=== PATIENT | female | born 1990 | race Hispanic/Latino ===

== ENCOUNTER 2019-05-16 15:08 | Emergency (ER) | payer BC, SELFPAY ==
--- NOTE | 2019-05-16 16:06 | EDPHYS ---
Physician Documentation [facility] Name: Faby Bucio Age: 28 yrs Sex: Female : 1990 Arrival Date: 05/16/2019 Time: 15:09 Bed 17 Private MD: None, None ED Physician Bob Greenberg HPI: 05/15 15:33 This 28 yrs old Female presents to ER via Ambulatory with complaints of Fever, kb Cough, General Weakness. 15:33 The patient or guardian reports cough, that is intermittent, described as mild, with no kb sputum, flu symptoms, low-grade fever. Onset: The symptoms/episode began/occurred this morning. Severity of symptoms: At their worst the symptoms were mild, in the emergency department the symptoms are unchanged. Modifying factors: The symptoms are alleviated by nothing, the symptoms are aggravated by nothing. Associated signs and symptoms: Pertinent positives: fever, sore throat, Pertinent negatives: chest pain, diarrhea, ear ache, nausea, rhinorrhea, vomiting. The patient has not experienced similar symptoms in the past. The patient has not recently seen a physician. Pt reports she woke up with a subjective fever ("felt hot") and cough. Reports scratchy throat. Denies shortness of breath. Denies travel or exposure to COVID. . 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 - Social history:: Smoking status: Patient denies any tobacco usage or history of. ROS: 15:33 Neck: Negative for injury, pain, and swelling, Cardiovascular: Negative for chest pain, kb palpitations, and edema, Abdomen/GI: Negative for abdominal pain, nausea, vomiting, diarrhea, and constipation, Back: Negative for injury and pain, MS/Extremity: Negative for injury and deformity, Skin: Negative for injury, rash, and discoloration, Neuro: Negative for headache, weakness, numbness, tingling, and seizure. 15:33 Constitutional: Positive for fever, Negative for body aches, chills, fatigue, malaise, poor PO intake, weight loss. 15:33 ENT: Positive for sore throat. 15:33 Respiratory: Positive for cough, Negative for dyspnea on exertion, hemoptysis, orthopnea, pleurisy, shortness of breath, sputum production, wheezing. Exam: 15:35 Constitutional: This is a well developed, well nourished patient who is awake, alert, kb and in no acute distress. Head/Face: Normocephalic, atraumatic. ENT: Nares patent. No nasal discharge, no septal abnormalities noted. Tympanic membranes are normal and external auditory canals are clear. Oropharynx with no redness, swelling, or masses, exudates, or evidence of obstruction, uvula midline. Mucous membranes moist. Neck: Trachea midline, no thyromegaly or masses palpated, and no cervical lymphadenopathy. Supple, full range of motion without nuchal rigidity, or vertebral point tenderness. No Meningismus. Chest/axilla: Normal chest wall appearance and motion. Nontender with no deformity. No lesions are appreciated. Cardiovascular: Regular rate and rhythm with a normal S1 and S2. No gallops, murmurs, or rubs. Normal PMI, no JVD. No pulse deficits. Respiratory: Lungs have equal breath sounds bilaterally, clear to auscultation and percussion. No rales, rhonchi or wheezes noted. No increased work of breathing, no retractions or nasal flaring. Abdomen/GI: Soft, non-tender, with normal bowel sounds. No distension or tympany. No guarding or rebound. No evidence of tenderness throughout. Skin: Warm, dry with normal turgor. Normal color with no rashes, no lesions, and no evidence of cellulitis. MS/ Extremity: Pulses equal, no cyanosis. Neurovascular intact. Full, normal range of motion. Neuro: Awake and alert, GCS 15, oriented to person, place, time, and situation. Cranial nerves II-XII grossly intact. Motor strength 5/5 in all extremities. Sensory grossly intact. Cerebellar exam normal. Normal gait. Vital Signs: 15:29 BP 117 / 90; Pulse 88; Resp 16; Temp 98.1; Pulse Ox 99% ; Weight 122.47 kg; Height 5 iw ft. 5 in. (165.10 cm); 15:29 Body Mass Index 44.93 (122.47 kg, 165.10 cm) iw MDM: 15:32 Patient medically screened. kb 15:35 Data reviewed: vital signs, nurses notes. Data interpreted: Pulse oximetry: on room air kb is 99 %. Interpretation: normal. 16:04 Counseling: I had a detailed discussion with the patient and/or guardian regarding: the kb historical points, exam findings, and any diagnostic results supporting the discharge/admit diagnosis, lab results, the need for outpatient follow up, a family practitioner, to return to the emergency department if symptoms worsen or persist or if there are any questions or concerns that arise at home. 05/15 15:16 Order name: Flu; Complete Time: 16:04 kb 05/15 15:16 Order name: Strep; Complete Time: 15:56 kb 05/15 16:02 Order name: Throat Culture EDMS Administered Medications: No medications were administered Disposition: 18:46 Co-signature as Attending Physician, Bob Greenberg MD I agree with the assessment and kdr plan of care. Disposition: 05/16/19 16:05 Discharged to Home. Impression: Acute upper respiratory infection, unspecified. - Condition is Stable. - Discharge Instructions: Upper Respiratory Infection, Adult, [id number], Viral Respiratory Infection, [id number]. - Medication Reconciliation Form, Thank You Letter, Antibiotic Education, Prescription Opioid Use form. - Follow up: Emergency Department; When: As needed; Reason: Worsening of condition. Follow up: Private Physician; When: 2 - 3 days; Reason: Recheck today's complaints, Continuance of care, Re-evaluation by your physician. Signatures: Dispatcher [employer] [facility] Ofelia Steele, [employer]-C [employer]-Ckb Bob Greenberg MD MD [facility] Gabriela Lui, ANA RN Hung Martin RN RN ae4 Corrections: (The following items were deleted from the chart) 16:19 16:05 05/16/2019 16:05 Discharged to Home. Impression: Acute upper respiratory ae4 infection, unspecified. Condition is Stable. Forms are Medication Reconciliation Form, Thank You Letter, Antibiotic Education, Prescription Opioid Use. Follow up: Emergency Department; When: As needed; Reason: Worsening of condition. Follow up: Private Physician; When: 2 - 3 days; Reason: Recheck today's complaints, Continuance of care, Re-evaluation by your physician. kb
--- NOTE | 2019-05-16 16:06 | ER ---
Nurse's Notes [facility] Name: Faby Bucio Age: 28 yrs Sex: Female : 1990 Arrival Date: 05/16/2019 Time: 15:09 Bed 17 Private MD: None, None Diagnosis: Acute upper respiratory infection, unspecified Presentation: 05/15 15:29 Chief complaint: Patient states: woke up with a cough and subjective fever at home, was iw sweaty when she woke up from nap, her grandma told her to come get checked out, denies SOB. Coronavirus screen: Patient reports a cough. Patient denies shortness of breath or difficulty breathing. Patient reports a measured and/or subjective temperature greater than 100.4F. Coronavirus screen: Patient denies travel on a cruise ship or to a country the [facility] currently lists as an affected area. Patient denies contact with known and/or suspected case of COVID-19. Ebola Screen: Patient negative for fever greater than or equal to 101.5 degrees Fahrenheit, and additional compatible Ebola Virus Disease symptoms Patient denies exposure to infectious person. Patient denies travel to an Ebola-affected area in the 21 days before illness onset. No symptoms or risks identified at this time. Initial Sepsis Screen: Does the patient meet any 2 criteria? No. Patient's initial sepsis screen is negative. Does the patient have a suspected source of infection? No. Patient's initial sepsis screen is negative. Risk Assessment: Do you want to hurt yourself or someone else? Patient reports no desire to harm self or others. 15:29 Method Of Arrival: Ambulatory iw 15:29 Acuity: PHIL 4 iw 15:34 Coronavirus screen: Surgical mask placed on patient. Patient moved to private room, iw placed in contact and droplet isolation with eye protection until further assessment. 16:19 Onset of symptoms was May 16, 2019 at 08:00. 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 - Social history:: Smoking status: Patient denies any tobacco usage or history of. Screenin:44 Abuse screen: Denies threats or abuse. Denies injuries from another. Nutritional iw screening: No deficits noted. Tuberculosis screening: No symptoms or risk factors identified. Fall Risk None identified. Assessment: 15:43 General: Appears in no apparent distress. comfortable, Behavior is calm, cooperative. iw General: Reports fever for 0-12 hours, feeling ill for 0-12 hours. Pain: Complains of pain in throat Quality of pain is described as irritated, itchy. Neuro: Level of Consciousness is awake, alert, obeys commands, Oriented to person, place, time, situation, Moves all extremities. Full function. Cardiovascular: Patient's skin is warm and dry. Respiratory: Reports cough that is non-productive, Respiratory effort is even, unlabored, Respiratory pattern is regular, symmetrical, Denies shortness of breath labored breathing. GI: No signs and/or symptoms were reported involving the gastrointestinal system. : No signs and/or symptoms were reported regarding the genitourinary system. Derm: Skin is intact, is healthy with good turgor. Musculoskeletal: Range of motion: intact in all extremities. 16:18 Reassessment: No changes from previously documented assessment. Patient and/or family ae4 updated on plan of care and expected duration. Pain level reassessed. Vital Signs: 15:29 BP 117 / 90; Pulse 88; Resp 16; Temp 98.1; Pulse Ox 99% ; Weight 122.47 kg; Height 5 iw ft. 5 in. (165.10 cm); 15:29 Body Mass Index 44.93 (122.47 kg, 165.10 cm) iw ED Course: 15:09 Patient arrived in ED. dp 15:09 None, None is Private Physician. dp 15:11 Ofeila Steele [facility]-C [facility]. kb 15:11 Bob Greenberg MD is Attending Physician. kb 15:31 Triage completed. iw 15:35 Hung Plasencia, ANA is Primary Nurse. ae4 15:44 No provider procedures requiring assistance completed. Flu and/or RSV swab sent to lab. iw Strep swab sent to lab. Patient did not have IV access during this emergency room visit. 16:00 Bed in low position. Call light in reach. Side rails up X 1. Pulse ox on. ae4 16:00 Arm band placed on right wrist. ae4 Administered Medications: No medications were administered Outcome: 16:05 Discharge ordered by . nati 16:19 Discharged to home ambulatory. ae4 16:19 Condition: stable 16:19 Discharge instructions given to patient, Instructed on discharge instructions, Demonstrated understanding of instructions. 16:19 Patient left the ED. ae4 Signatures: Ofelia Steele, DERMATOLOGY PHYSICIAN ASSISTANT-C DERMATOLOGY PHYSICIAN ASSISTANT-CkGabriela Arizmendi, RN Milo Meeks Andrea, RN RN ae4
[2019-05-16 16:26] VITALS: BP 117/90; TEMP 98.1; O2SAT 99
== END 2019-05-16 16:19 | disposition home or self-care (01) ==
LOC: ER 15:08
DX: J06.9 Acute upper respiratory infection, unspecified (principal)
CPT/HCPCS: 87070; 87081; 87804; 99283

== ENCOUNTER 2022-02-06 17:51 | Emergency (ER) | payer OTHER ==
--- OUTSIDE RECORDS SUMMARY | 2022-02-06 17:59 | XMS REPORT | Continuity of Care Document ---
:1990 Author Organization [facility] t Address [address] [place] [address] Care Team Providers Name Role Phone PCP, PATIENT DOES NOT HAVE A Primary Care Physician UnavailElgin Briceno Attending Clinician Unavailable KEYSHAWN LANGFORD Attending Clinician Unavailable Keyshawn Langford MD Attending Clinician Cody Hart MD Attending Clinician Bud LUZ, R Attending Clinician Kaleb Garrison MD Attending Clinician [phone] Damian Lobato DO Attending Clinician [facility] Attending Clinician Unavailable Everardo Mckoy PA-C Attending Clinician Doctor Unassigned, [place] Attending Clinician Unavailable 2, [facility] Attending Clinician Unavailable Tonya Reed MD Attending Clinician TONYA REED Attending Clinician Unavailable Trung John MD Attending Clinician TRNUG JOHN Attending Clinician Unavailable TRUNG JOHN Attending Clinician Unavailable Nurse, [facility] Attending Clinician Unavailable Sariah Potts MD Attending Clinician SARIAH POTTS Attending Clinician Unavailable EVERARDO MCKOY Attending Clinician Unavailable DANITA COBB Attending Clinician Unavailable Ultrasound, [facility] Attending Clinician Unavailable Trey Shannon MD Attending Clinician TREY SHANNON Attending Clinician Unavailable TREY SHANNON Attending Clinician Unavailable KALPESH OLSON Attending Clinician Unavailable KALPESH OLSON Attending Clinician Unavailable Brady Zarate MD Attending Clinician Keyshawn Langford MD Admitting Clinician KEYSHAWN LANGFORD Admitting Clinician Unavailable Payers Payer Name Policy Type Policy Number Effective Date Expiration Date Keith ramsey [facility] [id number] 2021 STAR 00:00:00 [employer] C1 [id number] 2020 Common Spiri t Blue Shield 00:00:00 - [facility] Problems Condition Condition Condition Status Onset Resolution Last Treating Co mments Source Name Details Category Date Date Treatment Clinician Date History of History of Disease Active 2021-02 U nivers gestationa gestationa 03-13 it y of l diabetes l diabetes 00:00[place] mellitus mellitus 00 Medica l (GDM) (GDM) [place] Liveborn Liveborn Disease Active 2021-02 Unive rs infant, of , of 02-20 it y of jimenez jimenez 00:00: [place] s , , 00 Me dical born in born in [facility] by by delivery delivery Encounter Encounter Disease Active 2021-02 Uni vers for for 02-19 ity of planned planned 00:00: [place] induction induction 00 Medi maritza of labor of labor [place] Elevated Elevated Disease Active 2021-02 Unive rs BP without BP without 02-19 it y of diagnosis diagnosis 00:00: [place] anderson of of 00 Medical hypertensi hypertensi Br anch on on Gestationa Gestationa Disease Active 2021-02 U nivers l l 02-19 ity of hypertensi hypertensi 00:00: [place] on, third on, third 00 Medi maritza trimester trimester Bran ch Gestationa Gestationa Disease Active U nivers l diabetes l diabetes 10-27 it y of mellitus mellitus 00:00: [place] (GDM) in (GDM) in 00 Medica l third third Branch trimester, trimester, gestationa gestationa l diabetes l diabetes method of method of control control unspecifie unspecifie d d GDM, class GDM, class Disease Active U nivers A2 A2 9-08 ity of 00:00: [address] Excess Excess Disease Active Univers weight weight 7-24 ity of gain in gain in 00:00: [place] , , 00 Me dical second second Branch trimester trimester 38 weeks 38 weeks Disease Active Unive rs gestation gestation 6-07 ity of of of 00:00: [place] 00 [facility] Branch 17 weeks 17 weeks Disease Active Unive rs gestation gestation 6-07 ity of of of 00:00: [place] 00 [facility] Branch Anemia of Anemia of Disease Active Uni vers mother in mother in 6-07 ity of , , 00:00: [place] antepartum antepartum 00 N[place] dical Branch Obesity Obesity Disease Active Univers complicati complicati 5-10 it y of ng ng 00:00: [place] 00 [facility] in first in first Branch trimester trimester High-risk High-risk Disease Active Uni vers 5-10 ity of in third in third 00:00: [place] trimester trimester 00 [facility] [id number] Body mass Problem Active Com mon index Spirit [BMI] - [facility] 45.0-49.9, [facility] [id number] Morbid Problem Active Commo n 9104 (severe) Spirit obesity - [facility] due to [facility] [id number] Mixed Problem Active Common hyperlipid Spirit emia - [facility] Allergies, Adverse Reactions, Alerts Allergy Allergy Status Severity Reaction(s) Onset Inactive Treating Comm ents Source Name Type Date Date Clinician NO KNOWN Drug Active Univers ALLERGIE Class ity of S [facility] Family History Family Member Diagnosis Comments Start Date Stop Date Source Maternal grandfather Diabetes [facility] Maternal Uncle Diabetes [facility] Maternal Uncle Hypertension [facility] Maternal Uncle Liver Cancer [facility] Natural mother Cancer [facility] Natural mother Diabetes [facility] Natural mother Hypertension [facility] Paternal grandmother Breast [facility] Social History Social Habit Start Date Stop Date Quantity Comments Source ASSERTION 2021-04-11 University of 00:00:00 [facility] History SDOH University o f Alcohol Frequency [facility] edical Branch History [facility] University o f Alcohol Std Drinks [place] Medical Branch History [facility] [place] o f Alcohol Binge [place] Medic al Branch History of Tobacco [facility] Spirit - Use [facility] Sex Assigned At Common Sp may - [facility] Exposure to 2022-01-01 2022-01-11 Not sure University of SARS-CoV-2 (event) 00:00:00 13:07:00 [facility] Alcohol intake 2022-01-11 2022-01-11 Current drinker Unive rsity of 00:00:00 00:00:00 of alcohol [facility] (finding) Branch Cigarettes smoked 2021-08-31 2021-08-31 Univers ity of current (pack per 00:00:00 00:00:00 [facility] ) - Reported Branch Tobacco use and 2021-08-31 2021-08-31 Smokeless Universit y of exposure 00:00:00 00:00:00 tobacco non-user [facility] dical [place] Tobacco Comment 2021-08-31 2021-08-31 socially Universit y of 00:00:00 00:00:00 [facility] Alcohol Comment 2021-06-28 2021-06-28 social Universit y of 00:00:00 00:00:00 [facility] Smoking Status Start Date Stop Date Source Ex-smoker 2021-08-31 00:00:00 2021-08-31 00:00:00 Universi ty of [facility] Never Smoker [facility] - [facility] Medications Ordered Filled Start Stop Current Ordering Indication Dosage Frequency Signature Comments Components Source Medication Medication Date Date Medication? Clinician (SIG) Name Name ascorbic 2021-02 Take by Unive rs acid 03-13 mouth. ity of (VITAMIN C 19:12: 00:00 [place] ORAL) 32 :00 Medical Branch ascorbic 2021-02 Yes Take by Univer s acid - mouth. ity of (VITAMIN C 11:35: [place] ORAL) 09 [facility] ascorbic 2021-02 Yes Take by Univer s acid -05 mouth. ity of (VITAMIN C 20:34: [place] ORAL) 44 Medical Branch ibuprofen 2021-02 Yes 600mg 600 mg, Univ ers (IBU) 1-04 Oral, Q6H ity of tablet 600 04:19: ABX, First [place] mg 56 dose Medical (after Branch last modificati on) on Christine 12/22/21 at 2330, Until Discontinu ed, Routine gabapentin 2021-02- Yes [id number] 300mg Take 1 Univers 300 mg 1-04 11-10 capsule by ity of capsule 00:00: 05:59 mouth in [place] 00 :00 the Medical morning Branch and 1 capsule at noon and 1 capsule in the evening. Do all this for 5 days. gabapentin 2021-02- Yes [id number] 300mg Take 1 Univers 300 mg 1- 11-10 capsule by ity of capsule 00:00: 05:59 mouth in [place] 00 :00 the Medical morning Branch and 1 capsule at noon and 1 capsule in the evening. Do all this for 5 days. gabapentin 2021-02- Yes [id number] 300mg Take 1 Univers 300 mg - 11-10 capsule by ity of capsule 00:00: 05:59 mouth in [place] 00 :00 the Medical morning Branch and 1 capsule at noon and 1 capsule in the evening. Do all this for 5 days. PNV 2021-02- No Take by Univers no.95/wander 02-21 11-03 mouth. ity o f us 23:23: 00:00 [place] fum/folic 46 :00 Medical ac Branch ( ORAL) PNV 2021-02- No Take by Univers no.95/wander 03 11-03 mouth. ity o f us 23:23: 00:00 [place] fum/folic 46 :00 Medical ac Branch ( ORAL) PNV 2021-02- No Take by Univers no.95/wander -03 11-03 mouth. ity o f us 23:23: 00:00 [place] fum/folic 46 :00 Medical ac Branch ( ORAL) PNV 2021-02- No Take by Univers no.95/wander 03 11-03 mouth. ity o f us 23:23: 00:00 [place] fum/folic 46 :00 Medical ac Branch ( ORAL) PNV 2021-02- No Take by Univers no.95/wander 03 11-03 mouth. ity o f us 23:23: 00:00 [place] fum/folic 46 :00 Medical ac Branch ( ORAL) PNV 2021-02- No Take by Univers no.95/wander 02-21 mouth. ity o f us 23:23: 00:00 [place] fum/folic 46 :00 Medical Branch ( ORAL) ascorbic 2021-02 Yes Take by Univer s acid 02-21 mouth. ity of (VITAMIN C 23:23: [place] ORAL) 41 Medical Branch ascorbic 2021-02 Yes Take by Univer s acid 03 mouth. ity of (VITAMIN C 23:23: [place] ORAL) 41 Medical Branch ascorbic 2021-02 Yes Take by Univer s acid 02-21 mouth. ity of (VITAMIN C 23:23: [place] ORAL) 41 Medical Branch ascorbic 2021-02 Yes Take by Univer s acid 03 mouth. ity of (VITAMIN C 23:23: [place] ORAL) 41 Medical Branch ascorbic 2021-02 Yes Take by Univer s acid 03 mouth. ity of (VITAMIN C 23:23: [place] ORAL) 41 [facility] Branch ascorbic 2021-02 Yes Take by Univer s acid 03 mouth. ity of (VITAMIN C 23:23: [place] ORAL) 41 [facility] Branch acetaminoph 2021-02 Yes 650mg 650 mg, Un alexa en 02-21 Oral, Q6H ity of (TYLENOL) 11:00: ABX, First [place] tablet 650 00 dose on Medica l mg [place] Branch 12/22/21 at 0600, Until Discontinu ed, Routine HYDROcodone 2021-02 Yes 1{tbl} 1 tablet, Univers -acetaminop 02-21 Oral, ity of hen (NORCO 05:00: Q6HPRN, [place] 5) 5-325 mg 00 Starting Medi maritza tablet 1 on [place] Branch tablet 12/22/21 at 0000, Until Discontinu ed, Routine, Pain (scale 7-10), Alternate with Ibuprofen acetaminoph 2021-02- No 1000mg 1,000 mg, Univers en ADULT 02-2103 IV ity of (OFIRMEV) 05:00: 05:05 Infusion, [place] injection 00 :00 at 400 Medical 1,000 mg mL/hr Branch Administer over 15 Minutes, ONCE TOMORROW, 1 dose, On [place] 12/22/21 at 0000, Routine, PACU
In dication: Perioperat justo Patient ketorolac 2021-02 No 30mg 30 mg, Unive rs (TORADOL) 02-21 Slow IV ity of injection 04:03: 22:17 Push, Q6H [place] 30 mg 40 :00 ABX, 4 Medical doses, Branch First dose (after last modificati on) on Sun12/21/21 at 2315, Last dose on [place] 12/22/21 at 1715, Routine gabapentin 2021-02 Yes 300mg 300 mg, Uni vers (NEURONTIN) 1-03 Oral, TID, it y of capsule 300 01:00: First dose [place] mg 00 on Sun Medical 12/21/21 at Branch 1999, Until Discontinu ed, Routine acetaminoph 2021-02 Yes [id number] 650mg Take 2 Univers en 325 mg 1-03 tablets by ity of tablet 00:00: mouth [place] 00 every 6 Medical (six) Branch hours as needed for Pain (scale 1-3) or Pain (scale 4-6). 2021-02 Yes [id number] 1{tbl} Take 1 U nivers vitamin 1-03 tablet by ity of w/FA tablet 00:00: mouth in [place] 00 the Medical morning. Branch docusate 2021-02 Yes [id number] 200mg Take 2 Un alexa 100 mg 1-03 capsules ity of capsule 00:00: by mouth [place] 00 once daily Medical as needed Branch for Constipati on. ferrous 2021-02 Yes [id number] 325mg Take 1 Uni vers sulfate 325 1-03 tablet by ity of mg (65 mg 00:00: [place] iron) 00 the Medical tablet morning Branch and 1 tablet in the evening. ibuprofen 2021-02 Yes [id number] 600mg Take 1 U nivers 600 mg 1-03 tablet by ity of tablet 00:00: mouth [place] 00 every 6 Medical (six) Branch hours as needed (Pain). Take with food or milk. acetaminoph 2021-02 Yes [id number] 650mg Take 2 Univers en 325 mg 1-03 tablets by ity of tablet 00:00: mouth [place] 00 every 6 Medical (six) Branch hours as needed for Pain (scale 1-3) or Pain (scale 4-6). 2021-02 Yes [id number] 1{tbl} Take 1 U nivers vitamin 1-03 tablet by ity of w/FA tablet 00:00: mouth in [place] 00 the Medical morning. Branch docusate 2021-02 Yes [id number] 200mg Take 2 Un alexa 100 mg 1-03 capsules ity of capsule 00:00: by mouth [place] 00 once daily Medical as needed Branch for Constipati on. ferrous 2021-02 Yes [id number] 325mg Take 1 Uni vers sulfate 325 1-03 tablet by ity of mg (65 mg 00:00: [place] iron) 00 the Medical tablet morning Branch and 1 tablet in the evening. ibuprofen 2021-02 Yes [id number] 600mg Take 1 U nivers 600 mg 1-03 tablet by ity of tablet 00:00: mouth [place] 00 every 6 Medical (six) Branch hours as needed (Pain). Take with food or milk. acetaminoph 2021-02 Yes [id number] 650mg Take 2 Univers en 325 mg 1-03 tablets by ity of tablet 00:00: mouth [place] 00 every 6 Medical (six) Branch hours as needed for Pain (scale 1-3) or Pain (scale 4-6). 2021-02 Yes [id number] 1{tbl} Take 1 U nivers vitamin 1-03 tablet by ity of w/FA tablet 00:00: mouth in [place] 00 the Medical morning. Branch docusate 2021-02 Yes [id number] 200mg Take 2 Un alexa 100 mg 1-03 capsules ity of capsule 00:00: by mouth [place] 00 once daily Medical as needed Branch for Constipati on. ferrous 2021-02 Yes [id number] 325mg Take 1 Uni vers sulfate 325 1-03 tablet by ity of mg (65 mg 00:00: [place] iron) 00 the Medical tablet morning Branch and 1 tablet in the evening. ibuprofen 2021-02 Yes [id number] 600mg Take 1 U nivers 600 mg 1-03 tablet by ity of tablet 00:00: mouth [place] 00 every 6 Medical (six) Branch hours as needed (Pain). Take with food or milk. acetaminoph 2021-02 No [id number] 650mg Take 2 Univers en 325 mg 1-03 11-23 tablets by ity of tablet 00:00: 00:00 mouth [place] 00 :00 every 6 Medical (six) Branch hours as needed for Pain (scale 1-3) or Pain (scale 4-6). 2021-02- No [id number] 1{tbl} Take 1 Univers vitamin 02-21 tablet by ity of w/FA tablet 00:00: 00:00 mouth in [place] 00 :00 the Medical morning. Branch docusate 2021-02- No [id number] 200mg Take 2 U nivers 100 mg 02-21 capsules ity of capsule 00:00: 00:00 by mouth [place] 00 :00 once daily Medical as needed Branch for Constipati on. ferrous 2021-02- No [id number] 325mg Take 1 Un alexa sulfate 325 02-21 tablet by it y of mg (65 mg 00:00: 00:00 mouth in [place] as iron) 00 :00 the Medical tablet morning Branch and 1 tablet in the evening. ibuprofen 2021-02- No [id number] 600mg Take 1 Univers 600 mg 02-21 tablet by ity of tablet 00:00: 00:00 mouth [place] 00 :00 every 6 Medical (six) Branch hours as needed (Pain). Take with food or milk. HYDROcodone 2021-02- Yes [id number] 1{tbl} Take 1 U nivers -acetaminop -12-30 tablet by it y of hen 5-325 00:00: 05:59 mouth [place] mg tablet 00 :00 every 6 Medical (six) Branch hours as needed for Pain (scale 7-10) (Alternate with Ibuprofen) for up to 7 days. Indication s: acute pain HYDROcodone 2021-02- Yes [id number] 1{tbl} Take 1 U nivers -acetaminop -04 29-11 tablet by it y of hen 5-325 00:00: 05:59 mouth [place] mg tablet 00 :00 every 6 Medical (six) Branch hours as needed for Pain (scale 7-10) (Alternate with Ibuprofen) for up to 7 days. Indication s: acute pain HYDROcodone 2021-02- Yes [id number] 1{tbl} Take 1 U nivers -acetaminop -04 29-11 tablet by it y of hen 5-325 00:00: 05:59 mouth [place] mg tablet 00 :00 every 6 Medical (six) Branch hours as needed for Pain (scale 7-10) (Alternate with Ibuprofen) for up to 7 days. Indication s: acute pain lactated 2021-02 1000mL at 125 [facility] ers ringers IV 02-20 1103 mL/hr, ity of infusion 23:45: 03:46 1,000 mL, [place] as 1,000 mL 00 :26 IV Medical Infusion, Branch ONCE, 1 dose, On Sun12/21/21 at 1845, Routine rho(D) 2021-02 Yes 300ug 300 mcg, Univer s immune 02-20 Intramuscu ity of globulin 23:34: lar, ONCE, [place] as (RHOGAM) 31 For 1 Medical syringe 300 dose, Branch mcg Conditiona l, Routine diphenhydrA 2021-02 Yes 25mg 25 mg, [facility] ers MINE 02-20 Slow IV ity of (BENADRYL) 23:34: Push, [place] injection 15 Q6HPRN, Medical 25 mg Starting Branch on Sun12/21/21 at 1834, Until Discontinu ed, Routine, Itching diphenhydrA 2021-02 Yes 25mg 25 mg, [facility] MINE 02-20 Oral, ity of (BENADRYL) 23:34: Q6HPRN, [place] tablet 25 15 Starting Medica l mg on Sun Branch 12/21/21 at 1834, Until Discontinu ed, Routine, Sleep, Itching ondansetron 2021-02 Yes 4mg 4 mg, Slow Univers (ZOFRAN 02-20 IV Push, ity of (PF)) 23:34: Q8HPRN, [place] injection 4 15 Starting Medi maritza mg on Sun Branch 12/21/21 at 1834, Until Discontinu ed, Routine, Nausea and Vomiting (N/V) bisacodyL 2021-02 Yes 10mg 10 [facility], [facility] (DUL[facility] 02-20 Rectal, ity of suppository 23:34: QDAILYPRN, [place] 10 mg 15 Starting Medical on Sun Branch 12/21/21 at 1834, Until Discontinu ed, Routine, Constipati on simethicone 2021-02 Yes 160mg 160 mg, Un alexa (GAS RELIEF 02-20 Oral, ity of (SIMETHICON 23:34: PC+HSPRN, [place] E)) 15 Starting Medical chewable on Sun tablet 160 12/21/21 at mg 1834, Until Discontinu ed, Routine, Gas docusate 2021-02 Yes 200mg 200 mg, Unive rs (COLACE) 02-20 Oral, ity of capsule 200 23:34: QDAILYPRN, [place] mg 15 Starting Medical on Sun Branch 12/21/21 at 1834, Until Discontinu ed, Routine, Constipati on magnesium 2021-02 Yes 30mL 30 mL, Univer s hydroxide 02-20 Oral, ity of (MILK OF 23:34: QDAILYPRN, [place] as MAGNESIA) 15 Starting Medica l 400 mg/5 mL on Sun Branch suspension 12/21/21 at 30 mL 1834, Until Discontinu ed, Routine, Constipati on lactated 2021-02 Yes 1000mL at 125 Unive rs ringers IV 1-02 mL/hr, ity of infusion 23:34: 1,000 mL, [place] 1,000 mL 15 IV Medical Infusion, Branch PRN, 1 dose, Starting on Sun12/21/21 at 1834, Until Discontinu ed, Routine acetaminoph 2021-02- No IV Unive rs en ADULT 02-20 Infusion, ity o f (OFIRMEV) 22:39: 23:15 Administer [place] injection 00 :54 over 15 Medical Minutes, Branch ONCE INTRA PROCEDURE, Starting on Sun12/21/21 at 1739, Until Sun12/21/21 at 1815, Routine, Intra-op acetaminoph 2021-02- No IV Unive rs en ADULT 02-20 Infusion, ity o f (OFIRMEV) 22:39: 23:15 Administer [place] injection 00 :54 over 15 Medical Minutes, Branch ONCE INTRA PROCEDURE, Starting on Sun12/21/21 at 1739, Until Sun12/21/21 at 1815, Routine, Intra-op acetaminoph 2021-02- No IV Unive rs en ADULT 02-20 Infusion, ity o f (OFIRMEV) 22:39: 23:15 Administer [place] injection 00 :54 over 15 Medical Minutes, Branch ONCE INTRA PROCEDURE, Starting on Sun12/21/21 at 1739, Until Sun12/21/21 at 1815, Routine, Intra-op acetaminoph 2021-02 No IV Unive rs en ADULT 02-20 Infusion, ity o f (OFIRMEV) 22:39: 23:15 Administer [place] injection 00 :54 over 15 Medical Minutes, Branch ONCE INTRA PROCEDURE, Starting on Sun12/21/21 at 1739, Until Sun12/21/21 at 1815, Routine, Intra-op acetaminoph 2021-02 No IV Unive rs en ADULT 02-20 Infusion, ity o f (OFIRMEV) 22:39: 23:15 Administer [place] injection 00 :54 over 15 Medical Minutes, Branch ONCE INTRA PROCEDURE, Starting on Sun12/21/21 at 1739, Until Sun12/21/21 at 1815, Routine, Intra-op azithromyci 2021-02 No IV Unive rs n 02-20 Piggyback, ity of (ZITHROMAX) 22:30: 23:15 CONTINUOUS [place] 500 mg in 00 :54 PRN, Medical NaCl 0.9% Starting Branch (NS) 250 mL on Sun IV 12/21/21 at piggyback 1730, Until Sun12/21/21 at 1815, Administer over 60 Minutes, 250 mL, Intra-op azithromyci 2021-02 No IV Unive rs n 02-20 Piggyback, ity of (ZITHROMAX) 22:30: 23:15 CONTINUOUS [place] 500 mg in 00 :54 PRN, Medical NaCl 0.9% Starting Branch (NS) 250 mL on Wed IV 12/21/21 at piggyback 1730, Until Sun12/21/21 at 1815, Administer over 60 Minutes, 250 mL, Intra-op azithromyci 2021-02 No IV Unive rs n 02-20 Piggyback, ity of (ZITHROMAX) 22:30: 23:15 CONTINUOUS [place] 500 mg in 00 :54 PRN, Medical NaCl 0.9% Starting Branch (NS) 250 mL on Sun IV 12/21/21 at piggyback 1730, Until Sun12/21/21 at 1815, Administer over 60 Minutes, 250 mL, Intra-op azithromyci 2021-02- No IV Unive rs n 02-20 Piggyback, ity of (ZITHROMAX) 22:30: 23:15 CONTINUOUS [place] 500 mg in 00 :54 PRN, Medical NaCl 0.9% Starting Branch (NS) 250 mL on Sun IV 12/21/21 at piggyback 1730, Until Sun12/21/21 at 1815, Administer over 60 Minutes, 250 mL, Intra-op azithromyci 2021-02- No IV Unive rs n 02-20 Piggyback, ity of (ZITHROMAX) 22:30: 23:15 CONTINUOUS [place] 500 mg in 00 :54 PRN, Medical NaCl 0.9% Starting Branch (NS) 250 mL on Sun IV 12/21/21 at piggyback 1730, Until Sun12/21/21 at 1815, Administer over 60 Minutes, 250 mL, Intra-op LR 1000 mL 2021-02- No IV Univer s + oxytocin 02-20 Infusion, ity of 40 units 40 22:25: 23:15 CONTINUOUS [place] unit/ 1,000 00 :54 PRN, Medical mL IV Starting Branch Solution on Sun12/21/21 at 1725, Until Sun12/21/21 at 1815, Routine, Intra-op LR 1000 mL 2021-02- No IV Univer s + oxytocin 02-20 Infusion, ity of 40 units 40 22:25: 23:15 CONTINUOUS [place] unit/ 1,000 00 :54 PRN, Medical mL IV Starting Branch Solution on Sun12/21/21 at 1725, Until Sun12/21/21 at 1815, Routine, Intra-op LR 1000 mL 2021-02- No IV Univer s + oxytocin 02-20 Infusion, ity of 40 units 40 22:25: 23:15 CONTINUOUS [place] unit/ 1,000 00 :54 PRN, Medical mL IV Starting Branch Solution on Sun12/21/21 at 1725, Until Sun12/21/21 at 1815, Routine, Intra-op LR 1000 mL 2021-02- No IV Univer s + oxytocin 02-20 Infusion, ity of 40 units 40 22:25: 23:15 CONTINUOUS [place] unit/ 1,000 00 :54 PRN, Medical mL IV Starting Branch Solution on Sun12/21/21 at 1725, Until Sun12/21/21 at 1815, Routine, Intra-op LR 1000 mL 2021-02- No IV Univer s + oxytocin 02-20 Infusion, ity of 40 units 40 22:25: 23:15 CONTINUOUS [place] unit/ 1,000 00 :54 PRN, Medical mL IV Starting Branch Solution on Sun12/21/21 at 1725, Until Sun12/21/21 at 1815, Routine, Intra-op ePHEDrine 2021-02- No Intravenou U nivers 25 mg/5 mL 02-20 s, ONCE ity o f (5 mg/mL) 22:21: 23:15 INTRA [place] syringe 00 :54 PROCEDURE, Medica l Starting Branch on Sun12/21/21 at 1721, Until Sun12/21/21 at 1815, Routine, Intra-op ePHEDrine 2021-02- No Intravenou U nivers 25 mg/5 mL 02-20 s, ONCE ity o f (5 mg/mL) 22:21: 23:15 INTRA [place] syringe 00 :54 PROCEDURE, Medica l Starting Branch on Sun12/21/21 at 1721, Until Sun12/21/21 at 1815, Routine, Intra-op ePHEDrine 2021-02- No Intravenou U nivers 25 mg/5 mL 02-20 s, ONCE ity o f (5 mg/mL) 22:21: 23:15 INTRA [place] syringe 00 :54 PROCEDURE, Medica l Starting Branch on Sun12/21/21 at 1721, Until Sun12/21/21 at 1815, Routine, Intra-op ePHEDrine 2021-02- No Intravenou U nivers 25 mg/5 mL 02-20 s, ONCE ity o f (5 mg/mL) 22:21: 23:15 INTRA [place] syringe 00 :54 PROCEDURE, Medica l Starting Branch on Sun12/21/21 at 1721, Until Sun12/21/21 at 1815, Routine, Intra-op ePHEDrine 2021-02- No Intravenou U nivers 25 mg/5 mL 02-20 s, ONCE ity o f (5 mg/mL) 22:21: 23:15 INTRA [place] syringe 00 :54 PROCEDURE, Medica l Starting Branch on Sun12/21/21 at 1721, Until Sun12/21/21 at 1815, Routine, Intra-op ondansetron 2021-02- No Slow IV Un alexa (ZOFRAN 02-20 Push, ONCE ity o f (PF)) 22:17: 23:15 INTRA [place] injection 00 :54 PROCEDURE, Medi maritza Starting Branch on Sun12/21/21 at 1717, Until Sun12/21/21 at 1815, Routine, Intra-op ondansetron 2021-02- No Slow IV Un alexa (ZOFRAN 02-20 Push, ONCE ity o f (PF)) 22:17: 23:15 INTRA [place] injection 00 :54 PROCEDURE, Medi maritza Starting Branch on Sun12/21/21 at 1717, Until Sun12/21/21 at 1815, Routine, Intra-op ondansetron 2021-02- No Slow IV Un alexa (ZOFRAN 02-20 Push, ONCE ity o f (PF)) 22:17: 23:15 INTRA [place] injection 00 :54 PROCEDURE, Medi maritza Starting Branch on Sun12/21/21 at 1717, Until Sun12/21/21 at 1815, Routine, Intra-op ondansetron 2021-02- No Slow IV Un alexa (ZOFRAN 02-20 Push, ONCE ity o f (PF)) 22:17: 23:15 INTRA [place] injection 00 :54 PROCEDURE, Medi maritza Starting Branch on Sun12/21/21 at 1717, Until Sun12/21/21 at 1815, Routine, Intra-op ondansetron 2021-02- No Slow IV Un alexa (ZOFRAN 02-20 Push, ONCE ity o f (PF)) 22:17: 23:15 INTRA [place] injection 00 :54 PROCEDURE, Medi maritza Starting Branch on Sun12/21/21 at 1717, Until Sun12/21/21 at 1815, Routine, Intra-op lactated 2021-02- No 1000mL at 125 Univ ers ringers IV 02-2002 mL/hr, ity of infusion 22:15: 23:34 1,000 mL, [place] 1,000 mL 00 :08 IV Medical Infusion, Branch CONTINUOUS , Starting on Sun12/21/21 at 1715, Until Sun12/21/21 at 1834, AIDE lactated 2021-02- No 1000mL at 125 [facility] ers ringers IV 02-20 mL/hr, ity of infusion 22:15: 23:34 1,000 mL, [place] 1,000 mL 00 :08 IV Medical Infusion, Branch CONTINUOUS , Starting on Sun12/21/21 at 1715, Until Sun12/21/21 at 1834, AIDE lactated 2021-02- No 1000mL at 125 [facility] ers ringers IV 02-20 mL/hr, ity of infusion 22:15: 23:34 1,000 mL, [place] 1,000 mL 00 :08 IV Medical Infusion, Branch CONTINUOUS , Starting on Sun12/21/21 at 1715, Until Sun12/21/21 at 1834, AIDE lactated 2021-02- No 1000mL at 125 [facility] ers ringers IV 02-20 mL/hr, ity of infusion 22:15: 23:34 1,000 mL, [place] 1,000 mL 00 :08 IV Medical Infusion, Branch CONTINUOUS , Starting on Sun12/21/21 at 1715, Until Sun12/21/21 at 1834, AIDE lactated 2021-02- No 1000mL at 125 [facility] ers ringers IV 02-2002 mL/hr, ity of infusion 22:15: 23:34 1,000 mL, [place] 1,000 mL 00 :08 IV Medical Infusion, Branch CONTINUOUS , Starting on Sun12/21/21 at 1715, Until Sun12/21/21 at 1834, AIDE ceFAZolin 2021-02- No IV [facility] (ANCEF) 02-20 Piggyback, ity o f injection 22:09: 23:15 ONCE [place]TRA [place] 00 :[place] PROCEDURE, Medical Starting Branch on Sun12/21/21 at 1709, Until Sun12/21/21 at 1815, AIDE, Intra-op ceFAZolin 2021-02- No IV [facility] (ANCEF) 02-20 Piggyback, ity o f injection 22:09: 23:15 ONCE [place]TRA [place] 00 :54 PROCEDURE, Medical Starting Branch on Sun12/21/21 at 1709, Until Sun12/21/21 at 1815, AIDE, Intra-op ceFAZolin 2021-02- No IV [facility] (ANCEF) 02-20 Piggyback, ity o f injection 22:09: 23:15 ONCE INTRA [place] 00 :54 PROCEDURE, Medical Starting Branch on Sun12/21/21 at 1709, Until Sun12/21/21 at 1815, AIDE, Intra-op ceFAZolin 2021-02- No IV [facility] (ANCEF) 02-20 Piggyback, ity o f injection 22:09: 23:15 ONCE INTRA [place] 00 :54 PROCEDURE, Medical Starting Branch on Sun12/21/21 at 1709, Until Sun12/21/21 at 1815, AIDE, Intra-op ceFAZolin 2021-02- No IV [facility] (ANCEF) 02-20 Piggyback, ity o f injection 22:09: 23:15 ONCE [place]TRA [place] 00 :54 PROCEDURE, Medical Starting Branch on Sun12/21/21 at 1709, Until Sun12/21/21 at 1815, AIDE, Intra-op lidocaine 2021-02- No Epidural, [facility] a[facility] 2% + 02-20 CONTINUOUS ity of epinephrine 21:54: 23:15 PRN, [place] 1:1000 + 00 :54 Starting Medical fentanyl 50 on Sun Branch mcg/mL + 12/21/21 at sodium 1654, bicarb 8.4% Until Sun12/21/21 at 1815, Routine, Intra-op lidocaine 2021-02- No Epidural, [facility] 2% + 02-20 CONTINUOUS ity of epinephrine 21:54: 23:15 PRN, [place] 1:1000 + 00 :54 Starting Medical fentanyl 50 on Wed Branch mcg/mL + 12/21/21 at sodium 1654, bicarb 8.4% Until Sun12/21/21 at 1815, Routine, Intra-op lidocaine 2021-02- No Epidural, [facility] [place] 2% + 02-20 CONTINUOUS ity of epinephrine 21:54: 23:15 PRN, [place] 1:1000 + 00 :54 Starting Medical fentanyl 50 on Wed Branch mcg/mL + 12/21/21 at sodium 1654, bicarb 8.4% Until Sun12/21/21 at 1815, Routine, Intra-op lidocaine 2021-02- No Epidural, [facility] [place] 2% + 02-20 CONTINUOUS ity of epinephrine 21:54: 23:15 PRN, [place] 1:1000 + 00 :54 Starting Medical fentanyl 50 on Wed Branch mcg/mL + 12/21/21 at sodium 1654, bicarb 8.4% Until Sun12/21/21 at 1815, Routine, Intra-op lidocaine 2021-02- No Epidural, [facility] [place] 2% + 02-20 CONTINUOUS ity of epinephrine 21:54: 23:15 PRN, [place] 1:1000 + 00 :54 Starting Medical fentanyl 50 on Wed Branch mcg/mL + 12/21/21 at sodium 1654, bicarb 8.4% Until Sun12/21/21 at 1815, Routine, Intra-op PNV 2021-02 Yes Take by [facility] no.95/wander 02-20 mouth. ity of us 17:07: [place] fum/folic 13 Medical Branch ( ORAL) ascorbic 2021-02 Yes Take by Univer s acid 02 mouth. ity of (VITAMIN C 17:07: [place] ORAL) Medical Branch PNV 2021-02 Yes Take by [facility] no.95/wander 02 mouth. ity of us 17:07: [place] fum/folic 13 Medical Branch ( ORAL) ascorbic 2021-02 Yes Take by Univer s acid 02-20 mouth. ity of (VITAMIN C 17:07: [place] ORAL) 13 Medical Branch PIB 2021-02- No Epidural, [facility] fentaNYL-ro 02-20 CONTINUOUS i ty of pivacaine 2 12:57: 23:15 PRN, [place] mcg/mL-0.1 00 :54 Starting Medic al % (PF) in on Wed Branch NS 200 mL 12/21/21 at epidural 0757, infusion Until Wed RTU 12/21/21 at 1815, Routine, Intra-op PIB 2021-02- No Epidural, [facility] fentaNYL-ro 02-20 ONCE INTRA i ty of pivacaine 2 12:57: 23:15 PROCEDURE, [place] mcg/mL-0.1 00 :54 Starting Medic al % (PF) in on Wed Branch NS 200 mL 12/21/21 at epidural 0757, infusion Until Wed RTU 12/21/21 at 1815, Routine, Intra-op PIB 2021-02- No Epidural, [facility] fentaNYL-ro 02-20 CONTINUOUS i ty of pivacaine 2 12:57: 23:15 PRN, [place] mcg/mL-0.1 00 :54 Starting Medic al % (PF) in on Wed Branch NS 200 mL 12/21/21 at epidural 0757, infusion Until Wed RTU 12/21/21 at 1815, Routine, Intra-op PIB 2021-02- No Epidural, [facility] fentaNYL-ro 02-20 ONCE INTRA i ty of pivacaine 2 12:57: 23:15 PROCEDURE, [place] mcg/mL-0.1 00 :54 Starting Medic al % (PF) in on Wed Branch NS 200 mL 12/21/21 at epidural 0757, infusion Until Wed RTU 12/21/21 at 1815, Routine, Intra-op PIB 2021-02- No Epidural, [facility] fentaNYL-ro 02-20 CONTINUOUS i ty of pivacaine 2 12:57: 23:15 PRN, [place] mcg/mL-0.1 00 :54 Starting Medic al % (PF) in on Wed Branch NS 200 mL 12/21/21 at epidural 0757, infusion Until Wed RTU 12/21/21 at 1815, Routine, Intra-op PIB 2021-02- No Epidural, [facility] fentaNYL-ro 02-20 ONCE INTRA i ty of pivacaine 2 12:57: 23:15 PROCEDURE, [place] mcg/mL-0.1 00 :54 Starting Medic al % (PF) in on Wed Branch NS 200 mL 12/21/21 at epidural 0757, infusion Until Wed RTU 12/21/21 at 1815, Routine, Intra-op PIB 2021-02- No Epidural, [facility] fentaNYL-ro 02-20 CONTINUOUS i ty of pivacaine 2 12:57: 23:15 PRN, [place] mcg/mL-0.1 00 :54 Starting Medic al % (PF) in on Wed Branch NS 200 mL 12/21/21 at epidural 0757, infusion Until Sun RTU 12/21/21 at 1815, Routine, Intra-op PIB 2021-02- No Epidural, [facility] fentaNYL-ro 02-20 ONCE INTRA i ty of pivacaine 2 12:57: 23:15 PROCEDURE, [place] mcg/mL-0.1 00 :54 Starting Medic al % (PF) in on Wed Branch NS 200 mL 12/21/21 at epidural 0757, infusion Until Sun RTU 12/21/21 at 1815, Routine, Intra-op PIB 2021-02- No Epidural, [facility] fentaNYL-ro 02-20 CONTINUOUS i ty of pivacaine 2 12:57: 23:15 PRN, [place] mcg/mL-0.1 00 :54 Starting Medic al % (PF) in on Wed Branch NS 200 mL 12/21/21 at epidural 0757, infusion Until Sun RTU 12/21/21 at 1815, Routine, Intra-op PIB 2021-02- No Epidural, [facility] fentaNYL-ro 02-20 ONCE INTRA i ty of pivacaine 2 12:57: 23:15 PROCEDURE, [place] mcg/mL-0.1 00 :54 Starting Medic al % (PF) in on Wed Branch NS 200 mL 12/21/21 at epidural 0757, infusion Until Sun RTU 12/21/21 at 1815, Routine, Intra-op lidocaine-e 2021-02- No Intravenou [facility] pinephrine 02-20 s, ONCE ity o f (XYLOCAINE 12:54: 23:15 INTRA [place] W/EPINEPHRI 00 :54 PROCEDURE, Me dical NE) 2 Starting Branch %-1:200,000 on Wed injection 12/21/21 at 0754, Until 12/21/21 at 1815, Routine, Intra-op lidocaine-e 2021-02- No Intravenou [facility] pinephrine 02-20 s, ONCE ity o f (XYLOCAINE 12:54: 23:15 INTRA [place] W/EPINEPHRI 00 :54 PROCEDURE, Me dical NE) 2 Starting Branch %-1:200,000 on Wed injection 12/21/21 at 0754, Until Sun12/21/21 at 1815, Routine, Intra-op lidocaine-e 2021-02- No Intravenou [facility] pinephrine 02-20 s, ONCE ity o f (XYLOCAINE 12:54: 23:15 INTRA [place] W/EPINEPHRI 00 :54 PROCEDURE, Me dical NE) 2 Starting Branch %-1:200,000 on Wed injection 12/21/21 at 0754, Until Sun12/21/21 at 1815, Routine, Intra-op lidocaine-e 2021-02- No Intravenou [facility] pinephrine 02-20 s, ONCE ity o f (XYLOCAINE 12:54: 23:15 INTRA [place] W/EPINEPHRI 00 :54 PROCEDURE, Me dical NE) 2 Starting Branch %-1:200,000 on Wed injection 12/21/21 at 0754, Until Sun12/21/21 at 1815, Routine, Intra-op lidocaine-e 2021-02- No Intravenou [facility] pinephrine 02-20 s, ONCE ity o f (XYLOCAINE 12:54: 23:15 INTRA [place] W/EPINEPHRI 00 :54 PROCEDURE, Me dical NE) 2 Starting Branch %-1:200,000 on Wed injection 12/21/21 at 0754, Until Sun12/21/21 at 1815, Routine, Intra-op lidocaine 2021-02- No Infiltrati U nivers 1% 02-20 on, ONCE ity of (XYLOCAINE) 12:45: 23:15 [place] 100 mg/10 00 :54 PROCEDURE, Medi maritza mL (1 %) Starting Branch injection on Sun12/21/21 at 0745, Until Sun12/21/21 at 1815, Routine, Intra-op lidocaine 2021-02- No Infiltrati U nivers 1% 02-20 on, ONCE ity of (XYLOCAINE) 12:45: 23:15 [place]TRA [place] 100 mg/10 00 :54 PROCEDURE, Medi maritza mL (1 %) Starting Branch injection on Sun12/21/21 at 0745, Until Sun12/21/21 at 1815, Routine, Intra-op lidocaine 2021-02- No Infiltrati U nivers 1% 02-20 on, ONCE ity of (XYLOCAINE) 12:45: 23:15 [place]TRA [place] 100 mg/10 00 :54 PROCEDURE, Medi maritza mL (1 %) Starting Branch injection on Sun12/21/21 at 0745, Until Sun12/21/21 at 1815, Routine, Intra-op lidocaine 2021-02- No Infiltrati U nivers 1% 02-20 on, ONCE ity of (XYLOCAINE) 12:45: 23:15 [place]TRA [place] 100 mg/10 00 :54 PROCEDURE, Medi maritza mL (1 %) Starting Branch injection on Sun12/21/21 at 0745, Until Sun12/21/21 at 1815, Routine, Intra-op lidocaine 2021-02- No Infiltrati U nivers 1% 02-20 on, ONCE ity of (XYLOCAINE) 12:45: 23:15 [place]TRA [place] 100 mg/10 00 :54 PROCEDURE, Medi maritza mL (1 %) Starting Branch injection on Sun12/21/21 at 0745, Until Sun12/21/21 at 1815, Routine, Intra-op oxytocin 2021-02- No 2mU/min at 2-40 [facility] (PITOCIN) 02-20 mL/hr, IV ity of 30 units in 10:00: 23:34 Infusion, [place] NS 500 mL 00 :04 TITRATE, Medica l IV infusion Starting Bran ch on Sun12/21/21 at 0500, Until Sun12/21/21 at 1834, Routine misoprostol 2021-02- No 25ug 25 mcg, [facility] (CYTOTEC) 02-19 Vaginal, ity o f quarter-tab 19:15: 23:34 Q4H ABX, [place] 25 mcg 00 :04 First dose Med ical on Sun Branch 12/20/21 at 1415, Until Discontinu ed, Routine misoprostol 2021-02- No 25ug 25 mcg, Un [facility] (CYTOTEC) 02-19 Oral, ity of quarter-tab 18:00: 18:55 ONCE, 1 [place] 25 mcg 00 :00 dose, On Medic al Tue Branch 12/20/21 at 1300, Routine FENTanyl PF 2021-02- No 100ug 100 mcg, Univers (SUBLIMAZE 02-19 Slow IV ity o f (PF)) 17:46: 23:34 Push, [place] injection 26 :04 Q1HPRN, Medical 100 mcg Starting Branch on Sun12/20/21 at 1246, Until Sun12/21/21 at 1834, Routine, contractio n pain without an epidural and SVE < 8 cm and Cat I strip Sliding 2021-02- No Subcutaneo Uni vers Scale 02-19 us, ity of Insulin - 17:44: 23:49 SEE-INSTRU [place] Regular + 48 :01 CTIONS, Medical Fsbg Starting Branch Testing on Sun12/20/21 at 1244, Until Sun12/21/21 at 1849, Routine [id number]-LR IV 2021-02- No 1000mL at 1-125 U nivers infusion 02-1902 mL/hr, IV ity o f 1,000 mL 17:42: 23:49 Infusion, [place] 30 :01 TITRATE, Medical Starting Branch on Sun12/20/21 at 1242, Until Sun12/21/21 at 1849, Routine lactated 2021-02- No 500mL at 999 Unive rs ringers IV 02-1902 mL/hr, 500 it y of infusion 17:42: 12:58 mL, IV [place] 500 mL 29 :00 Infusion, Medical PRN - SEE Branch INSTRUCTIO NS, 1 dose, Starting on Sun12/20/21 at 1242, Until Sun12/21/21 at 0758, Routine blood sugar 2021-02 Yes Pt to Unive rs diagnostic 0-28 check ity of (FREESTYLE 00:00: blood [place] LITE 00 glucose Medical STRIPS) levels 4 x Branch strip per day. blood sugar 2021-02 Yes Pt to Unive rs diagnostic 0-28 check ity of (FREESTYLE 00:00: blood [place] LITE 00 glucose Medical STRIPS) levels 4 x Branch strip per day. blood sugar 2021-02 Yes Pt to Unive rs diagnostic 0-28 check ity of (FREESTYLE 00:00: blood [place] LITE 00 glucose Medical STRIPS) levels 4 x Branch strip per day. blood sugar 2021-02 Yes Pt to Unive rs diagnostic 0-28 check ity of (FREESTYLE 00:00: blood [place] LITE 00 glucose Medical STRIPS) levels 4 x Branch strip per day. blood sugar 2021-02 Yes Pt to Unive rs diagnostic 0-28 check ity of (FREESTYLE 00:00: blood [place] LITE 00 glucose Medical STRIPS) levels 4 x Branch strip per day. blood sugar 2021-02- No Pt to Univ ers diagnostic 0-28 12-22 check ity of (FREESTYLE 00:00: 00:00 blood [place] LITE 00 :00 glucose Medical STRIPS) levels 4 x Branch strip per day. blood sugar 2021-02- No Pt to Univ ers diagnostic 0-28 12-22 check ity of (FREESTYLE 00:00: 00:00 blood [place] LITE 00 :00 glucose Medical STRIPS) levels 4 x Branch strip per day. blood sugar 2021-02- No Pt to Univ ers diagnostic 0-28 12-22 check ity of (FREESTYLE 00:00: 00:00 blood [place] LITE 00 :00 glucose Medical STRIPS) levels 4 x Branch strip per day. blood sugar 2021-02- No Pt to Univ ers diagnostic 0-28 12-22 check ity of (FREESTYLE 00:00: 00:00 blood [place] LITE 00 :00 glucose Medical STRIPS) levels 4 x Branch strip per day. blood sugar 2021-02- No Pt to Univ ers diagnostic 0-28 12-22 check ity of (FREESTYLE 00:00: 00:00 blood [place] LITE 00 :00 glucose Medical STRIPS) levels 4 x Branch strip per day. blood sugar 2021-02- No Pt to Univ ers diagnostic 0-28 12-22 check ity of (FREESTYLE 00:00: 00:00 blood [place] LITE 00 :00 glucose Medical STRIPS) levels 4 x Branch strip per day. blood sugar 2021-02 Yes Pt to Unive rs diagnostic 0-26 check ity of (FREESTYLE 00:00: blood [place] LITE 00 glucose Medical STRIPS) levels 4 x Branch strip per day. blood sugar 2021-02 Yes Pt to Unive rs diagnostic 0-26 check ity of (FREESTYLE 00:00: blood [place] LITE 00 glucose Medical STRIPS) levels 4 x Branch strip per day. blood sugar 2021-02- No Pt to [facility] ers diagnostic 0-12-15 check ity of (FREESTYLE 00:00: 00:00 blood [place] LITE 00 :00 glucose Medical STRIPS) levels 4 x Branch strip per day. blood sugar 2021-02- No Pt to [facility] ers diagnostic 0-12-15 check ity of (FREESTYLE 00:00: 00:00 blood [place] LITE 00 :00 glucose Medical STRIPS) levels 4 x Branch strip per day. insulin 2021-02 Yes [id number] Inject 28 U nivers regular 0-24 units in ity of human 100 00:00: AM and 22 [place] unit/mL 00 units in Medical injection PM Branch insulin 2021-02 Yes [id number] Inject 28 U nivers regular 0-24 units in ity of human 100 00:00: AM and 22 [place] unit/mL 00 units in Medical injection PM Branch insulin 2021-02 Yes [id number] Inject 28 U nivers regular 0-24 units in ity of human 100 00:00: AM and 22 [place] unit/mL 00 units in Medical injection PM Branch insulin 2021-02 Yes [id number] Inject 28 U nivers regular 0-24 units in ity of human 100 00:00: AM and 22 [place] unit/mL 00 units in Medical injection PM Branch insulin 2021-02 Yes [id number] Inject 28 U nivers regular 0-24 units in ity of human 100 00:00: AM and 22 [place] unit/mL 00 units in Medical injection PM Branch insulin 2021-02 Yes [id number] Inject 28 U nivers regular 0-24 units in ity of human 100 00:00: AM and 22 [place] unit/mL 00 units in Medical injection PM Branch insulin 2021-02 Yes [id number] Inject 28 U nivers regular 0-24 units in ity of human 100 00:00: AM and 22 [place] unit/mL 00 units in Medical injection PM Branch insulin 2021-02 Yes [id number] Inject 28 U nivers regular 0-24 units in ity of human 100 00:00: AM and 22 [place] unit/mL 00 units in Medical injection PM Branch insulin NPH 2021-02- Yes [id number] Inject 58 [facility] 100 unit/mL 0-24 11-08 units in ity of injection 00:00: 05:59 AM and 22 [place] 00 :00 units in Medical PM Branch insulin NPH 2021-02- Yes [id number] Inject 58 [facility] 100 unit/mL 0-24 11-08 units in ity of injection 00:00: 05:59 AM and 22 [place] 00 :[place] units in Medical PM Branch insulin NPH 2021-02- Yes [id number] Inject 58 [facility] 100 unit/mL 0-24 11-08 units in ity of injection 00:00: 05:59 AM and 22 [place] 00 :00 units in Medical PM Branch insulin NPH 2021-02- Yes [id number] Inject 58 [facility] 100 unit/mL 0-24 11-08 units in ity of injection 00:00: 05:59 AM and 22 [place] 00 :00 units in Medical PM Branch insulin NPH 2021-02- Yes [id number] Inject 58 [facility] 100 unit/mL 0-24 11-08 units in ity of injection 00:00: 05:59 AM and 22 [place] 00 :00 units in Medical PM Branch insulin NPH 2021-02- Yes [id number] Inject 58 [facility] 100 unit/mL 0-24 11-08 units in ity of injection 00:00: 05:59 AM and 22 [place] 00 :00 units in Medical PM Branch insulin NPH 2021-02- Yes [id number] Inject 58 [facility] 100 unit/mL 0-24 11-08 units in ity of injection 00:00: 05:59 AM and 22 [place] 00 :00 units in Medical PM Branch insulin NPH 2021-02- Yes [id number] Inject 58 [facility] 100 unit/mL 0-24 11-08 units in ity of injection 00:00: 05:59 AM and 22 [place] 00 :00 units in Medical PM Branch insulin NPH 2021-02- No [id number] Inject 58 [facility] 100 unit/mL 0-24 11-03 units in ity of injection 00:00: 00:00 AM and 22 [place] 00 :00 units in Medical PM Branch insulin 2021-02- No [id number] Inject 28 [facility] regular 0-24 11-03 units in ity of human 100 00:00: 00:00 AM and 22 [place] unit/mL 00 :00 units in Medical injection PM Branch insulin NPH 2021-02- No [id number] Inject 58 [facility] 100 unit/mL 0-24 11-03 units in ity of injection 00:00: 00:00 AM and 22 [place] 00 :00 units in Medical PM Branch insulin 2021-02- No [id number] Inject 28 [facility] regular 0-24 11-03 units in ity of human 100 00:00: 00:00 AM and 22 [place] unit/mL 00 :00 units in Medical injection PM Branch insulin NPH 2021-02- No [id number] Inject 58 [facility] 100 unit/mL 0-24 11-03 units in ity of injection 00:00: 00:00 AM and 22 [place] 00 :00 units in Medical PM Branch insulin 2021-02- No [id number] Inject 28 [facility] regular 0-24 11-03 units in ity of human 100 00:00: 00:00 AM and 22 [place] unit/mL 00 :00 units in Medical injection PM Branch insulin NPH 2021-02- No [id number] Inject 58 [facility] 100 unit/mL 0-24 11-03 units in ity of injection 00:00: 00:00 AM and 22 [place] 00 :00 units in Medical PM Branch insulin 2021-02- No [id number] Inject 28 [facility] regular 0-24 11-03 units in ity of human 100 00:00: 00:00 AM and 22 [place] unit/mL 00 :00 units in Medical injection PM Branch insulin NPH 2021-02- No [id number] Inject 58 [facility] 100 unit/mL 0-24 11-03 units in ity of injection 00:00: 00:00 AM and 22 [place] 00 :00 units in Medical PM Branch insulin 2021-02- No [id number] Inject 28 [facility] regular 0-24 11-03 units in ity of human 100 00:00: 00:00 AM and 22 [place] unit/mL 00 :00 units in Medical injection PM Branch insulin NPH 2021-02- No [id number] Inject 58 [facility] 100 unit/mL 0-24 11-03 units in ity of injection 00:00: 00:00 AM and 22 [place] 00 :00 units in Medical PM Branch insulin 2021-02- No [id number] Inject 28 [facility] regular 0-24 11-03 units in ity of human 100 00:00: 00:00 AM and 22 [place] unit/mL 00 :00 units in Medical injection PM Branch glyBURIDE 5 2021-02 Yes [id number] 10mg Take 2 [facility] mg tablet 0-20 tablets by ity of 00:00: mouth in [address] and 2 tablets in the evening. Take with meals. glyBURIDE 5 2021-02 Yes [id number] 10mg Take 2 [facility] mg tablet 0-20 tablets by ity of 00:00: mouth in [address] morning [place] and 2 tablets in the evening. Take with meals. ferrous 2021-02 Yes [id number] 325mg Take 1 Un alexa sulfate 0-20 tablet by ity of (IRON, 00:00: mouth in [place] FERROUS 00 the Medical SULFATE,) morning Branch 325 mg (65 and 1 mg iron) tablet in tablet the evening. glyBURIDE 5 2021-02 Yes [id number] 10mg Take 2 [facility] mg tablet 0-20 tablets by ity of 00:00: mouth in [address] and 2 tablets in the evening. Take with meals. ferrous 2021-02 Yes [id number] 325mg Take 1 Un alexa sulfate 0-20 tablet by ity of (IRON, 00:00: mouth in [place] FERROUS 00 the Medical SULFATE,) morning Branch 325 mg (65 and 1 mg iron) tablet in tablet the evening. glyBURIDE 5 2021-02 Yes [id number] 10mg Take 2 [facility] mg tablet 0-20 tablets by ity of 00:00: mouth in [address] and 2 tablets in the evening. Take with meals. ferrous 2021-02 Yes [id number] 325mg Take 1 Un alexa sulfate 0-20 tablet by ity of (IRON, 00:00: mouth in [place] FERROUS 00 the Medical SULFATE,) morning Branch 325 mg (65 and 1 mg iron) tablet in tablet the evening. glyBURIDE 5 2021-02 Yes [id number] 10mg Take 2 [facility] mg tablet 0-20 tablets by ity of 00:00: mouth in [address] and 2 tablets in the evening. Take with meals. ferrous 2021-02 Yes [id number] 325mg Take 1 Un alexa sulfate 0-20 tablet by ity of (IRON, 00:00: mouth in [place] FERROUS 00 the Medical SULFATE,) morning Branch 325 mg (65 and 1 mg iron) tablet in tablet the evening. glyBURIDE 2021-02 Yes [id number] 10mg Take 2 [facility] mg tablet 0-20 tablets by ity of 00:00: mouth in [place] 00 the Medical morning Branch and 2 tablets in the evening. Take with meals. ferrous 2021-02 Yes [id number] 325mg Take 1 Un alexa sulfate 0-20 tablet by ity of (IRON, 00:00: mouth in [place] FERROUS 00 the Medical SULFATE,) morning Branch 325 mg (65 and 1 mg iron) tablet in tablet the evening. glyBURIDE 2021-02 Yes [id number] 10mg Take 2 [facility] mg tablet 0-20 tablets by ity of 00:00: mouth in [place] 00 the Medical morning Branch and 2 tablets in the evening. Take with meals. ferrous 2021-02 Yes [id number] 325mg Take 1 Un alexa sulfate 0-20 tablet by ity of (IRON, 00:00: mouth in [place] FERROUS 00 the Medical SULFATE,) morning Branch 325 mg (65 and 1 mg iron) tablet in tablet the evening. glyBURIDE 2021-02 Yes [id number] 10mg Take 2 [facility] mg tablet 0-20 tablets by ity of 00:00: mouth in [place] [address] the Medical morning Branch and 2 tablets in the evening. Take with meals. ferrous 2021-02 Yes [id number] 325mg Take 1 Un alexa sulfate 0-20 tablet by ity of (IRON, 00:00: mouth in [place] FERROUS 00 the Medical SULFATE,) morning Branch 325 mg (65 and 1 mg iron) tablet in tablet the evening. glyBURIDE 5 2021-02 Yes [id number] 10mg Take 2 Univers mg tablet 0-20 tablets by ity of 00:00: mouth in [place] 00 the Medical morning Branch and 2 tablets in the evening. Take with meals. ferrous 2021-02 Yes [id number] 325mg Take 1 Un alexa sulfate 0-20 tablet by ity of (IRON, 00:00: mouth in [place] FERROUS 00 the Medical SULFATE,) morning Branch 325 mg (65 and 1 mg iron) tablet in tablet the evening. glyBURIDE 5 2021-02 Yes [id number] 10mg Take 2 [facility] mg tablet 0-20 tablets by ity of 00:00: mouth in [place] 00 the Medical morning Branch and 2 tablets in the evening. Take with meals. ferrous 2021-02 Yes [id number] 325mg Take 1 Un alexa sulfate 0-20 tablet by ity of (IRON, 00:00: mouth in [place] FERROUS 00 the Medical SULFATE,) morning Branch 325 mg (65 and 1 mg iron) tablet in tablet the evening. glyBURIDE 5 2021-02 Yes [id number] 10mg Take 2 [facility] mg tablet 0-20 tablets by ity of 00:00: mouth in [place] 00 the Medical morning Branch and 2 tablets in the evening. Take with meals. ferrous 2021-02 Yes [id number] 325mg Take 1 Un alexa sulfate 0-20 tablet by ity of (IRON, 00:00: mouth in [place] FERROUS 00 the Medical SULFATE,) morning Branch 325 mg (65 and 1 mg iron) tablet in tablet the evening. glyBURIDE 5 2021-02- No [id number] 10mg Take 2 [facility] mg tablet 0-20 11-03 tablets by ity of 00:00: 00:00 mouth in [place] 00 :00 the Medical morning Branch and 2 tablets in the evening. Take with meals. ferrous 2021-02- No [id number] 325mg Take 1 U nivers sulfate 0-20 11-03 tablet by ity of (IRON, 00:00: 00:00 mouth in [place] FERROUS 00 :00 the Medical SULFATE,) morning Branch 325 mg (65 and 1 mg iron) tablet in tablet the evening. glyBURIDE 5 2021-02- No [id number] 10mg Take 2 [facility] mg tablet 0-20 11-03 tablets by ity of 00:00: 00:00 mouth in [place] 00 :00 the Medical morning Branch and 2 tablets in the evening. Take with meals. ferrous 2021-02- No [id number] 325mg Take 1 U nivers sulfate 0-20 11-03 tablet by ity of (IRON, 00:00: 00:00 mouth in [place] FERROUS 00 :00 the Medical SULFATE,) morning Branch 325 mg (65 and 1 mg iron) tablet in tablet the evening. glyBURIDE 5 2021-02- No [id number] 10mg Take 2 [facility] mg tablet 0-20 11-03 tablets by ity of 00:00: 00:00 mouth in [place] 00 :00 the Medical morning Branch and 2 tablets in the evening. Take with meals. ferrous 2021-02- No [id number] 325mg Take 1 U nivers sulfate 0-20 11-03 tablet by ity of (IRON, 00:00: 00:00 mouth in [place] FERROUS 00 :00 the Medical SULFATE,) morning Branch 325 mg (65 and 1 mg iron) tablet in tablet the evening. glyBURIDE 5 2021-02- No [id number] 10mg Take 2 [facility] mg tablet 0-20 -03 tablets by ity of 00:00: 00:00 mouth in [place] 00 :00 the Medical morning Branch and 2 tablets in the evening. Take with meals. ferrous 2021-02- No [id number] 325mg Take 1 U nivers sulfate 0-20 -03 tablet by ity of (IRON, 00:00: 00:00 mouth in [place] FERROUS 00 :00 the Medical SULFATE,) morning Branch 325 mg (65 and 1 mg iron) tablet in tablet the evening. glyBURIDE 5 2021-02- No [id number] 10mg Take 2 [facility] mg tablet 0-20 - tablets by ity of 00:00: 00:00 mouth in [place] 00 :00 the Medical morning Branch and 2 tablets in the evening. Take with meals. ferrous 2021-02- No [id number] 325mg Take 1 U nivers sulfate 0-20 - tablet by ity of (IRON, 00:00: 00:00 mouth in [place] FERROUS 00 :00 the Medical SULFATE,) morning Branch 325 mg (65 and 1 mg iron) tablet in tablet the evening. glyBURIDE 5 2021-02- No [id number] 10mg Take 2 [facility] mg tablet 0-20 - tablets by ity of 00:00: 00:00 mouth in [place] 00 :00 the Medical morning Branch and 2 tablets in the evening. Take with meals. ferrous 2021-02- No [id number] 325mg Take 1 U nivers sulfate 0-20 -03 tablet by ity of (IRON, 00:00: 00:00 mouth in [place] FERROUS 00 :00 the Medical SULFATE,) morning Branch 325 mg (65 and 1 mg iron) tablet in tablet the evening. glyBURIDE 2021-02- No [id number] 7.5mg Take 3 [facility] 2.5 mg 0-13 10-21 tablets by ity of tablet 00:00: 04:59 mouth in [place] 00 :00 the Medical morning Branch and 3 tablets in the evening. Take with meals. Do all this for 7 days. glyBURIDE 2021-02- Yes [id number] 7.5mg Take 3 [facility] 2.5 mg 0-13 10-21 tablets by ity of tablet 00:00: 04:59 mouth in [place] 00 :00 the Medical morning Branch and 3 tablets in the evening. Take with meals. Do all this for 7 days. glyBURIDE 2021-02- Yes [id number] 7.5mg Take 3 [facility] 2.5 mg 0-13 10-21 tablets by ity of tablet 00:00: 04:59 mouth in [place] 00 :00 the Medical morning Branch and 3 tablets in the evening. Take with meals. Do all this for 7 days. glyBURIDE 2021-02- Yes [id number] 7.5mg Take 3 [facility] 2.5 mg 0-13 10-21 tablets by ity of tablet 00:00: 04:59 mouth in [place] 00 :00 the [facility] morning Branch and 3 tablets in the evening. Take with meals. Do all this for 7 days. glyBURIDE 2021-02- Yes [id number] 7.5mg Take 3 Univers 2.5 mg 0-13 10-21 tablets by ity of tablet 00:00: 04:59 mouth in [place] 00 :00 the [facility] morning Branch and 3 tablets in the evening. Take with meals. Do all this for 7 days. glyBURIDE 2021-02- Yes [id number] 7.5mg Take 3 [facility] 2.5 mg 0-13 10-21 tablets by ity of tablet 00:00: 04:59 mouth in [place] 00 :00 the Medical morning Branch and 3 tablets in the evening. Take with meals. Do all this for 7 days. glyBURIDE 2021-02- Yes [id number] 7.5mg Take 3 [facility] 2.5 mg 0-13 10-21 tablets by ity of tablet 00:00: 04:59 mouth in [place] 00 :00 the Medical morning Branch and 3 tablets in the evening. Take with meals. Do all this for 7 days. glyBURIDE 5 2021-02 Yes [id number] 5mg Take 1 [facility] mg tablet 0-06 tablet by ity o f 00:00: mouth in [place] 00 the Medical morning Branch and 1 tablet in the evening. Take with meals. glyBURIDE 5 2021-02- No [id number] 5mg Take 1 [facility] mg tablet 0-06 10-13 tablet by ity of 00:00: 00:00 mouth in [place] 00 :00 the Medical morning Branch and 1 tablet in the evening. Take with meals. glyBURIDE 5 2021-02- No [id number] 5mg Take 1 [facility] mg tablet 0-06 10-13 tablet by ity of 00:00: 00:00 mouth in [place] 00 :00 the Medical morning Branch and 1 tablet in the evening. Take with meals. ascorbic Yes Take by Univer s acid 9-29 mouth. ity of (VITAMIN C 14:44: [place] ORAL) 38 Medical Branch ascorbic Yes Take by Univer s acid 9-29 mouth. ity of (VITAMIN C 14:44: [place] ORAL) 38 Medical Branch ascorbic Yes Take by Univer s acid 9-29 mouth. ity of (VITAMIN C 14:44: [place] ORAL) 38 Medical Branch ascorbic Yes Take by Univer s acid 9-29 mouth. ity of (VITAMIN C 14:44: [place] ORAL) Medical Branch ascorbic Yes Take by Univer s acid 9-29 mouth. ity of (VITAMIN C 14:44: [place] ORAL) Medical Branch ascorbic Yes Take by Univer s acid 9-29 mouth. ity of (VITAMIN C 14:44: [place] ORAL) 38 Medical Branch ascorbic Yes Take by Univer s acid 9-29 mouth. ity of (VITAMIN C 14:44: [place] ORAL) 38 Medical Branch ascorbic Yes Take by Univer s acid 9-29 mouth. ity of (VITAMIN C 14:44: [place] ORAL) 38 Medical Branch ascorbic 0 Yes Take by Univer s acid 9-29 mouth. ity of (VITAMIN C 14:44: [place] ORAL) Medical Branch ascorbic Yes Take by Univer s acid 9-29 mouth. ity of (VITAMIN C 14:44: [place] ORAL) 38 Medical Branch ascorbic Yes Take by Univer s acid 9-29 mouth. ity of (VITAMIN C 14:44: [place] ORAL) 38 Medical Branch ascorbic 0 Yes Take by Univer s acid 9-29 mouth. ity of (VITAMIN C 14:44: [place] ORAL) 38 Medical Branch ascorbic 0 Yes Take by Univer s acid 9-29 mouth. ity of (VITAMIN C 14:44: [place] ORAL) 38 Medical Branch ascorbic 0 Yes Take by Univer s acid 9-29 mouth. ity of (VITAMIN C 14:44: [place] ORAL) 38 Medical Branch ascorbic 0 Yes Take by Univer s acid 9-29 mouth. ity of (VITAMIN C 14:44: [place] ORAL) 38 Medical Branch ascorbic 0 Yes Take by Univer s acid 9-29 mouth. ity of (VITAMIN C 14:44: [place] ORAL) 38 Medical Branch ascorbic 0 Yes Take by Univer s acid 9-29 mouth. ity of (VITAMIN C 14:44: [place] ORAL) 38 Medical Branch ascorbic Yes Take by Univer s acid 9-29 mouth. ity of (VITAMIN C 14:44: [place] ORAL) 38 Medical Branch ascorbic Yes Take by Univer s acid 9-29 mouth. ity of (VITAMIN C 14:44: [place] ORAL) [address] [place] [address] Branch glyBURIDE 0 Yes [id number] 2.5mg Take 1 U nivers 2.5 mg 9-22 tablet by ity of tablet 00:00: mouth in [place] [address] the Medical morning Branch and 1 tablet in the evening. Take with meals. glyBURIDE 2021-0 Yes [id number] 2.5mg Take 1 U nivers 2.5 mg 9-22 tablet by ity of tablet 00:00: mouth in [place] [address] the Medical morning Branch and 1 tablet in the evening. Take with meals. glyBURIDE 2021-0 Yes [id number] 2.5mg Take 1 U nivers 2.5 mg 9-22 tablet by ity of tablet 00:00: mouth in [place] [address] the Medical morning Branch and 1 tablet in the evening. Take with meals. glyBURIDE 2021-0 Yes [id number] 2.5mg Take 1 U nivers 2.5 mg 9-22 tablet by ity of tablet 00:00: mouth in [place] [address] the Medical morning Branch and 1 tablet in the evening. Take with meals. glyBURIDE 2-0 Yes [id number] 2.5mg Take 1 U nivers 2.5 mg 9-22 tablet by ity of tablet 00:00: mouth in [place] 00 the Medical morning Branch and 1 tablet in the evening. Take with meals. glyBURIDE 2021-0 Yes [id number] 2.5mg Take 1 U nivers 2.5 mg 9-22 tablet by ity of tablet 00:00: mouth in [place] 00 the Medical morning Branch and 1 tablet in the evening. Take with meals. glyBURIDE 2021-0 2022- No [id number] 2.5mg Take 1 [facility] 2.5 mg 9-22 10-06 tablet by ity of tablet 00:00: 00:00 mouth in [place] 00 :00 the Medical morning Branch and 1 tablet in the evening. Take with meals. glyBURIDE 2021-0 2022- No [id number] 2.5mg Take 1 [facility] 2.5 mg 9-22 10-06 tablet by ity of tablet 00:00: 00:00 mouth in [place] 00 :00 the Medical morning Branch and 1 tablet in the evening. Take with meals. Blood-Gluco Yes Use as Univ ers se Meter 10-14 directed ity of (FREESTYLE 00:00: [place] LITE METER) 00 Medical Kit Branch blood sugar 0 Yes Pt to [facility] rs diagnostic 10-14 check ity of (FREESTYLE 00:00: blood [place] LITE 00 glucose Medical STRIPS) levels 4 x Branch strip per day. Lancets Yes Pt to [facility] 10-14 check ity of 00:00: blood [place] 00 glucose Medical levels 4 x Branch per day. Blood-Gluco 0 Yes Use as Univ ers se Meter 10-14 directed ity of (FREESTYLE 00:00: [place] LITE METER) 00 Medical Kit Branch blood sugar 0 Yes Pt to [facility] rs diagnostic 10-14 check ity of (FREESTYLE 00:00: blood [place] LITE 00 glucose Medical STRIPS) levels 4 x Branch strip per day. Lancets 0 Yes Pt to [facility] 10-14 check ity of 00:00: blood [place] 00 glucose Medical levels 4 x Branch per day. Blood-Gluco 0 Yes Use as Univ ers se Meter 10-14 directed ity of (FREESTYLE 00:00: [place] LITE METER) 00 Medical Kit Branch blood sugar 0 Yes Pt to [facility] rs diagnostic 10-14 check ity of (FREESTYLE 00:00: blood [place] LITE 00 glucose Medical STRIPS) levels 4 x Branch strip per day. Lancets 0 Yes Pt to [facility] 10-14 check ity of 00:00: blood [place] 00 glucose Medical levels 4 x Branch per day. Blood-Gluco Yes Use as Univ ers se Meter 10-14 directed ity of (FREESTYLE 00:00: [place] LITE METER) 00 Medical Kit Branch blood sugar Yes Pt to [facility] rs diagnostic 10-14 check ity of (FREESTYLE 00:00: blood [place] LITE 00 glucose Medical STRIPS) levels 4 x Branch strip per day. Lancets Yes Pt to [facility] 10-14 check ity of 00:00: blood [place] 00 glucose Medical levels 4 x Branch per day. Blood-Gluco Yes Use as Univ ers se Meter 10-14 directed ity of (FREESTYLE 00:00: [place] LITE METER) 00 Medical Kit Branch blood sugar 0 Yes Pt to [facility] rs diagnostic 10-14 check ity of (FREESTYLE 00:00: blood [place] LITE 00 glucose Medical STRIPS) levels 4 x Branch strip per day. Lancets 0 Yes Pt to [facility] 10-14 check ity of 00:00: blood [place] 00 glucose Medical levels 4 x Branch per day. Blood-Gluco Yes Use as Univ ers se Meter 10-14 directed ity of (FREESTYLE 00:00: [place] LITE METER) 00 Medical Kit Branch blood sugar 0 Yes Pt to [facility] rs diagnostic 10-14 check ity of (FREESTYLE 00:00: blood [place] LITE 00 glucose Medical STRIPS) levels 4 x Branch strip per day. Lancets 0 Yes Pt to [facility] 10-14 check ity of 00:00: blood [place] 00 glucose Medical levels 4 x Branch per day. Blood-Gluco Yes Use as Univ ers se Meter 10-14 directed ity of (FREESTYLE 00:00: [place] LITE METER) 00 Medical Kit Branch blood [facility]14 check ity of (FREESTYLE 00:00: blood [place] LITE 00 glucose Medical STRIPS) levels 4 x Branch strip per day. Lancets 0 Yes Pt to [facility] 10-14 check ity of 00:00: blood [place] 00 glucose Medical levels 4 x Branch per day. Blood-Gluco Yes Use as Univ ers se Meter 10-14 directed ity of (FREESTYLE 00:00: [place] LITE METER) 00 Medical Kit Branch blood sugar Yes Pt to [facility] rs diagnostic 10-14 check ity of (FREESTYLE 00:00: blood [place] LITE 00 glucose Medical STRIPS) levels 4 x Branch strip per day. Lancets Yes Pt to [facility] 10-14 check ity of 00:00: blood [place] 00 glucose Medical levels 4 x Branch per day. Blood-Gluco Yes Use as Univ ers se Meter 10-14 directed ity of (FREESTYLE 00:00: [place] LITE METER) 00 Medical Kit Branch blood sugar Yes Pt to [facility] rs diagnostic 10-14 check ity of (FREESTYLE 00:00: blood [place] LITE 00 glucose Medical STRIPS) levels 4 x Branch strip per day. Lancets Yes Pt to [facility] 10-14 check ity of 00:00: blood [place] 00 glucose Medical levels 4 x Branch per day. Blood-Gluco Yes Use as Univ ers se Meter 10-14 directed ity of (FREESTYLE 00:00: [place] LITE METER) 00 Medical Kit Branch blood sugar Yes Pt to [facility] rs diagnostic 10-14 check ity of (FREESTYLE 00:00: blood [place] LITE 00 glucose Medical STRIPS) levels 4 x Branch strip per day. Lancets Yes Pt to [facility] 10-14 check ity of 00:00: blood [place] 00 glucose Medical levels 4 x Branch per day. Blood-Gluco Yes Use as Univ ers se Meter 10-14 directed ity of (FREESTYLE 00:00: [place] LITE METER) 00 Medical Kit Branch blood sugar Yes Pt to [facility] rs diagnostic 10-14 check ity of (FREESTYLE 00:00: blood [place] LITE 00 glucose Medical STRIPS) levels 4 x Branch strip per day. Lancets 0 Yes Pt to [facility] 10-14 check ity of 00:00: blood [place] 00 glucose Medical levels 4 x Branch per day. Blood-Gluco 0 Yes Use as Univ ers se Meter 10-14 directed ity of (FREESTYLE 00:00: [place] LITE METER) 00 Medical Kit Branch blood sugar 0 Yes Pt to [facility] rs diagnostic 10-14 check ity of (FREESTYLE 00:00: blood [place] LITE 00 glucose Medical STRIPS) levels 4 x Branch strip per day. Lancets 0 Yes Pt to [facility] 10-14 check ity of 00:00: blood [place] 00 glucose Medical levels 4 x Branch per day. Blood-Gluco 0 Yes Use as Univ ers se Meter 10-14 directed ity of (FREESTYLE 00:00: [place] LITE METER) 00 Medical Kit Branch blood sugar Yes Pt to [facility] rs diagnostic 10-14 check ity of (FREESTYLE 00:00: blood [place] LITE 00 glucose Medical STRIPS) levels 4 x Branch strip per day. Lancets 0 Yes Pt to [facility] 10-14 check ity of 00:00: blood [place] 00 glucose Medical levels 4 x Branch per day. Blood-Gluco Yes Use as Univ ers se Meter 10-14 directed ity of (FREESTYLE 00:00: [place] LITE METER) 00 Medical Kit Branch blood sugar 0 Yes Pt to [facility] rs diagnostic 10-14 check ity of (FREESTYLE 00:00: blood [place] LITE 00 glucose Medical STRIPS) levels 4 x Branch strip per day. Lancets 0 Yes Pt to [facility] 10-14 check ity of 00:00: blood [place] 00 glucose Medical levels 4 x Branch per day. Blood-Gluco 0 Yes Use as Univ ers se Meter 10-14 directed ity of (FREESTYLE 00:00: [place] LITE METER) 00 Medical Kit Branch blood sugar 0 Yes Pt to [facility] rs diagnostic 10-14 check ity of (FREESTYLE 00:00: blood [place] LITE 00 glucose Medical STRIPS) levels 4 x Branch strip per day. Lancets 2022-0 Yes Pt to [facility] 10-14 check ity of 00:00: blood [place] 00 glucose Medical levels 4 x Branch per day. Blood-Gluco Yes Use as Univ ers se Meter 10-14 directed ity of (FREESTYLE 00:00: [place] LITE METER) 00 Medical Kit Branch blood sugar Yes Pt to [facility] rs diagnostic 10-14 check ity of (FREESTYLE 00:00: blood [place] LITE 00 glucose Medical STRIPS) levels 4 x Branch strip per day. Lancets 0 Yes Pt to [facility] 10-14 check ity of 00:00: blood [place] 00 glucose Medical levels 4 x Branch per day. Blood-Gluco Yes Use as Univ ers se Meter 10-14 directed ity of (FREESTYLE 00:00: [place] LITE METER) 00 Medical Kit Branch blood sugar Yes Pt to [facility] rs diagnostic 10-14 check ity of (FREESTYLE 00:00: blood [place] LITE 00 glucose Medical STRIPS) levels 4 x Branch strip per day. Lancets Yes Pt to [facility] 10-14 check ity of 00:00: blood [place] 00 glucose Medical levels 4 x Branch per day. Blood-Gluco Yes Use as Univ ers se Meter 10-14 directed ity of (FREESTYLE 00:00: [place] LITE METER) 00 Medical Kit Branch blood sugar Yes Pt to [facility] rs diagnostic 10-14 check ity of (FREESTYLE 00:00: blood [place] LITE 00 glucose Medical STRIPS) levels 4 x Branch strip per day. Lancets 0 Yes Pt to [facility] 10-14 check ity of 00:00: blood [place] 00 glucose Medical levels 4 x Branch per day. Blood-Gluco Yes Use as Univ ers se Meter 10-14 directed ity of (FREESTYLE 00:00: [place] LITE METER) 00 Medical Kit Branch blood sugar Yes Pt to [facility] rs diagnostic 10-14 check ity of (FREESTYLE 00:00: blood [place] LITE 00 glucose Medical STRIPS) levels 4 x Branch strip per day. Lancets 0 Yes Pt to [facility] 10-14 check ity of 00:00: blood [place] 00 glucose Medical levels 4 x Branch per day. Blood-Gluco Yes Use as Univ ers se Meter 10-14 directed ity of (FREESTYLE 00:00: [place] LITE METER) 00 Medical Kit Branch blood sugar Yes Pt to [facility] rs diagnostic 10-14 check ity of (FREESTYLE 00:00: blood [place] LITE 00 glucose Medical STRIPS) levels 4 x Branch strip per day. Lancets Yes Pt to [facility] 10-14 check ity of 00:00: blood [place] 00 glucose Medical levels 4 x Branch per day. Blood-Gluco Yes Use as Univ ers se Meter 10-14 directed ity of (FREESTYLE 00:00: [place] LITE METER) 00 Medical Kit Branch blood sugar Yes Pt to [facility] rs diagnostic 10-14 check ity of (FREESTYLE 00:00: blood [place] LITE 00 glucose Medical STRIPS) levels 4 x Branch strip per day. Lancets Yes Pt to [facility] 10-14 check ity of 00:00: blood [place] 00 glucose Medical levels 4 x Branch per day. Blood-Gluco Yes Use as Univ ers se Meter 10-14 directed ity of (FREESTYLE 00:00: [place] LITE METER) 00 Medical Kit Branch blood sugar Yes Pt to [facility] rs diagnostic 10-14 check ity of (FREESTYLE 00:00: blood [place] LITE 00 glucose Medical STRIPS) levels 4 x Branch strip per day. Lancets Yes Pt to [facility] 10-14 check ity of 00:00: blood [place] 00 glucose Medical levels 4 x Branch per day. Blood-Gluco Yes Use as Univ ers se Meter 10-14 directed ity of (FREESTYLE 00:00: [place] LITE METER) 00 Medical Kit Branch blood sugar Yes Pt to [facility] rs diagnostic 10-14 check ity of (FREESTYLE 00:00: blood [place] LITE 00 glucose Medical STRIPS) levels 4 x Branch strip per day. Lancets Yes Pt to [facility] 10-14 check ity of 00:00: blood [place] 00 glucose Medical levels 4 x Branch per day. Blood-Gluco Yes Use as Univ ers se Meter 10-14 directed ity of (FREESTYLE 00:00: [place] LITE METER) 00 Medical Kit Branch blood sugar [facility]14 check ity of (FREESTYLE 00:00: blood [place] LITE 00 glucose Medical STRIPS) levels 4 x Branch strip per day. Lancets 0 Yes Pt to [facility] 10-14 check ity of 00:00: blood [place] 00 glucose Medical levels 4 x Branch per day. Blood-Gluco Yes Use as Univ ers se Meter 10-14 directed ity of (FREESTYLE 00:00: [place] LITE METER) 00 Medical Kit Branch blood sugar 0 [facility]14 check ity of (FREESTYLE 00:00: blood [place] LITE 00 glucose Medical STRIPS) levels 4 x Branch strip per day. Lancets 0 Yes Pt to [facility] 10-14 check ity of 00:00: blood [place] 00 glucose Medical levels 4 x Branch per day. Blood-Gluco Yes Use as Univ ers se Meter 10-14 directed ity of (FREESTYLE 00:00: [place] LITE METER) 00 Medical Kit Branch blood sugar 0 Yes Pt to [facility] rs diagnostic 10-14 check ity of (FREESTYLE 00:00: blood [place] LITE 00 glucose Medical STRIPS) levels 4 x Branch strip per day. Lancets 0 Yes Pt to [facility] 10-14 check ity of 00:00: blood [place] 00 glucose Medical levels 4 x Branch per day. Blood-Gluco Yes Use as Univ ers se Meter 10-14 directed ity of (FREESTYLE 00:00: [place] LITE METER) 00 Medical Kit Branch Lancets 0 Yes Pt to [facility] 10-14 check ity of 00:00: blood [place] 00 glucose Medical levels 4 x Branch per day. Blood-Gluco Yes Use as Univ ers se Meter 10-14 directed ity of (FREESTYLE 00:00: [place] LITE METER) 00 Medical Kit Branch Lancets 0 Yes Pt to [facility] 10-14 check ity of 00:00: blood [place] 00 glucose Medical levels 4 x Branch per day. Blood-Gluco 2022-0 Yes Use as Univ ers se Meter 10-14 directed ity of (FREESTYLE 00:00: [place] LITE METER) 00 Medical Kit Branch Lancets Yes Pt to [facility] 8 check ity of 00:00: blood [place] 00 glucose Medical levels 4 x Branch per day. Blood-Gluco Yes Use as Univ ers se Meter 10-14 directed ity of (FREESTYLE 00:00: [place] LITE METER) 00 Medical Kit Branch Lancets Yes Pt to [facility] 8 check ity of 00:00: blood [place] 00 glucose Medical levels 4 x Branch per day. Blood-Gluco Yes Use as Univ ers se Meter 10-14 directed ity of (FREESTYLE 00:00: [place] LITE METER) 00 Medical Kit Branch Lancets Yes Pt to [facility] 10-14 check ity of 00:00: blood [place] 00 glucose Medical levels 4 x Branch per day. Blood-Gluco Yes Use as Univ ers se Meter 10-14 directed ity of (FREESTYLE 00:00: [place] LITE METER) 00 Medical Kit Branch Lancets Yes Pt to [facility] 8 check ity of 00:00: blood [place] 00 glucose Medical levels 4 x Branch per day. Blood-Gluco Yes Use as Univ ers se Meter 10-14 directed ity of (FREESTYLE 00:00: [place] LITE METER) 00 Medical Kit Branch Lancets Yes Pt to [facility] 8 check ity of 00:00: blood [place] 00 glucose Medical levels 4 x Branch per day. Blood-Gluco 0 2021- No Use as Uni vers se Meter 10-14 directed ity of (FREESTYLE 00:00: 00:00 [place] LITE METER) 00 :00 Medical Kit Branch Lancets 0 2021- No Pt to [facility] 10-14 check ity of 00:00: 00:00 blood [place] 00 :00 glucose Medical levels 4 x Branch per day. Blood-Gluco 0 2021- No Use as Uni vers se Meter 10-14 directed ity of (FREESTYLE 00:00: 00:00 [place] LITE METER) 00 :00 Medical Kit Branch Lancets 2021- No Pt to [facility] 10-14 check ity of 00:00: 00:00 blood [place] 00 :00 glucose Medical levels 4 x Branch per day. Blood-Gluco 2021- No Use as Uni vers se Meter 10-14 directed ity of (FREESTYLE 00:00: 00:00 [place] LITE METER) 00 :00 Medical Kit Branch Lancets 2021- No Pt to [facility] 10-14 check ity of 00:00: 00:00 blood [place] 00 :00 glucose Medical levels 4 x Branch per day. Blood-Gluco 2021- No Use as Uni vers se Meter 10-14 directed ity of (FREESTYLE 00:00: 00:00 [place] LITE METER) 00 :00 Medical Kit Branch Lancets 2021- No Pt to [facility] 10-14 check ity of 00:00: 00:00 blood [place] 00 :00 glucose Medical levels 4 x Branch per day. Blood-Gluco 2021- No Use as Uni vers se Meter 10-14 directed ity of (FREESTYLE 00:00: 00:00 [place] LITE METER) 00 :00 Medical Kit Branch Lancets 2021- No Pt to [facility] 10-14 check ity of 00:00: 00:00 blood [place] 00 :00 glucose Medical levels 4 x Branch per day. Blood-Gluco 2021- No Use as Uni vers se Meter 10-14 directed ity of (FREESTYLE 00:00: 00:00 [place] LITE METER) 00 :00 Medical Kit Branch Lancets 2021- No Pt to [facility] 10-14 check ity of 00:00: 00:00 blood [place] 00 :00 glucose Medical levels 4 x Branch per day. blood sugar 2021- No Pt to [facility] ers diagnostic 10-14 check ity of (FREESTYLE 00:00: 00:00 blood [place] LITE 00 :00 glucose Medical STRIPS) levels 4 x Branch strip per day. blood sugar 2021- No Pt to [facility] ers diagnostic 10-14 check ity of (FREESTYLE 00:00: 00:00 blood [place] LITE 00 :00 glucose Medical STRIPS) levels 4 x Branch strip per day. ascorbic Yes Take by Univer s acid 7-13 mouth. ity of (VITAMIN C 11:58: [place] ORAL) 27 Medical Branch ascorbic Yes Take by Univer s acid 7-13 mouth. ity of (VITAMIN C 11:58: [place] ORAL) 27 Medical Branch ascorbic Yes Take by Univer s acid 7-13 mouth. ity of (VITAMIN C 11:58: [place] ORAL) 27 Medical Branch ascorbic Yes Take by Univer s acid 7-13 mouth. ity of (VITAMIN C 11:58: [place] ORAL) 27 Medical Branch ascorbic Yes Take by Univer s acid 7-13 mouth. ity of (VITAMIN C 11:58: [place] ORAL) 27 Medical Branch ascorbic Yes Take by Univer s acid 7-13 mouth. ity of (VITAMIN C 11:58: [place] ORAL) 27 Medical Branch ascorbic Yes Take by Univer s acid 7-13 mouth. ity of (VITAMIN C 11:58: [place] ORAL) 27 Medical Branch ascorbic Yes Take by Univer s acid 7-13 mouth. ity of (VITAMIN C 11:58: [place] ORAL) 27 Medical Branch ascorbic Yes Take by Univer s acid 7-13 mouth. ity of (VITAMIN C 11:58: [place] ORAL) 27 Medical Branch ascorbic Yes Take by Univer s acid 7-13 mouth. ity of (VITAMIN C 11:58: [place] ORAL) 27 Medical Branch ascorbic Yes Take by Univer s acid 7-13 mouth. ity of (VITAMIN C 11:58: [place] ORAL) 27 Medical Branch ascorbic Yes Take by Univer s acid 7-13 mouth. ity of (VITAMIN C 11:58: [place] ORAL) 27 Medical Branch ascorbic Yes Take by Univer s acid 7-13 mouth. ity of (VITAMIN C 11:58: [place] ORAL) 27 Medical Branch ascorbic Yes Take by Univer s acid 7-13 mouth. ity of (VITAMIN C 11:58: [place] ORAL) 27 Medical Branch ferrous Yes [id number] 325mg Take 1 Un alexa sulfate 325 5-18 tablet by ity of mg (65 mg 00:00: mouth [place] iron) 00 daily. Medical tablet Branch ferrous Yes [id number] 325mg Take 1 Un alexa sulfate 325 5-18 tablet by ity of mg (65 mg 00:00: mouth [place] iron) 00 daily. Medical tablet Branch ferrous Yes [id number] 325mg Take 1 Un alexa sulfate 325 5-18 tablet by ity of mg (65 mg 00:00: mouth [place] [facility]) 00 daily. Medical tablet Branch ferrous Yes [id number] 325mg Take 1 Un alexa sulfate 325 5-18 tablet by ity of mg (65 mg 00:00: mouth [place] [facility]) 00 daily. Medical tablet Branch ferrous Yes [id number] 325mg Take 1 Un alexa sulfate 325 5-18 tablet by ity of mg (65 mg 00:00: mouth [place] [facility]) 00 daily. Medical tablet Branch ferrous Yes [id number] 325mg Take 1 Un alexa sulfate 325 5-18 tablet by ity of mg (65 mg 00:00: mouth [place] [facility]) 00 daily. Medical tablet Branch ferrous Yes [id number] 325mg Take 1 Un alexa sulfate 325 5-18 tablet by ity of mg (65 mg 00:00: mouth [place] [facility]) 00 daily. Medical tablet Branch ferrous Yes [id number] 325mg Take 1 Un alexa sulfate 325 5-18 tablet by ity of mg (65 mg 00:00: mouth [place] [facility]) 00 daily. Medical tablet Branch ferrous Yes [id number] 325mg Take 1 Un alexa sulfate 325 5-18 tablet by ity of mg (65 mg 00:00: mouth [place] [facility]) 00 daily. Medical tablet Branch ferrous Yes [id number] 325mg Take 1 Un alexa sulfate 325 5-18 tablet by ity of mg (65 mg 00:00: mouth [place] [facility]) 00 daily. Medical tablet Branch ferrous Yes [id number] 325mg Take 1 Un alexa sulfate 325 5-18 tablet by ity of mg (65 mg 00:00: mouth [place] [facility]) 00 daily. Medical tablet Branch ferrous Yes [id number] 325mg Take 1 Un alexa sulfate 325 5-18 tablet by ity of mg (65 mg 00:00: mouth [place] [facility]) 00 daily. Medical tablet Branch ferrous Yes [id number] 325mg Take 1 Un alexa sulfate 325 5-18 tablet by ity of mg (65 mg 00:00: mouth [place] [facility]) 00 daily. Medical tablet Branch ferrous Yes [id number] 325mg Take 1 Un alexa sulfate 325 5-18 tablet by ity of mg (65 mg 00:00: mouth [place] [facility]) 00 daily. Medical tablet Branch ferrous Yes [id number] 325mg Take 1 Un alexa sulfate 325 5-18 tablet by ity of mg (65 mg 00:00: mouth [place] [facility]) 00 daily. Medical tablet Branch ferrous Yes [id number] 325mg Take 1 Un alexa sulfate 325 5-18 tablet by ity of mg (65 mg 00:00: mouth [place] [facility]) 00 daily. Medical tablet Branch ferrous Yes [id number] 325mg Take 1 Un alexa sulfate 325 5-18 tablet by ity of mg (65 mg 00:00: mouth [place] [facility]) 00 daily. Medical tablet Branch ferrous Yes [id number] 325mg Take 1 Un alexa sulfate 325 5-18 tablet by ity of mg (65 mg 00:00: mouth [place] [facility]) 00 daily. Medical tablet Branch ferrous Yes [id number] 325mg Take 1 Un alexa sulfate 325 5-18 tablet by ity of mg (65 mg 00:00: mouth [place] [facility]) 00 daily. Medical tablet Branch ferrous Yes [id number] 325mg Take 1 Un alexa sulfate 325 5-18 tablet by ity of mg (65 mg 00:00: mouth [place] [facility]) 00 daily. Medical tablet Branch ferrous Yes [id number] 325mg Take 1 Un alexa sulfate 325 5-18 tablet by ity of mg (65 mg 00:00: mouth [place] [facility]) 00 daily. Medical tablet Branch ferrous Yes [id number] 325mg Take 1 Un alexa sulfate 325 5-18 tablet by ity of mg (65 mg 00:00: mouth [place] [facility]) 00 daily. Medical tablet Branch ferrous Yes [id number] 325mg Take 1 Un alexa sulfate 325 5-18 tablet by ity of mg (65 mg 00:00: mouth [place] [facility]) 00 daily. Medical tablet Branch ferrous Yes [id number] 325mg Take 1 Un alexa sulfate 325 5-18 tablet by ity of mg (65 mg 00:00: mouth [place] [facility]) 00 daily. Medical tablet Branch ferrous Yes [id number] 325mg Take 1 Un alexa sulfate 325 5-18 tablet by ity of mg (65 mg 00:00: mouth [place] [facility]) 00 daily. Medical tablet Branch ferrous Yes [id number] 325mg Take 1 Un alexa sulfate 325 5-18 tablet by ity of mg (65 mg 00:00: mouth [place] [facility]) 00 daily. Medical tablet Branch ferrous Yes [id number] 325mg Take 1 Un alexa sulfate 325 5-18 tablet by ity of mg (65 mg 00:00: mouth [place] [facility]) 00 daily. Medical tablet Branch ferrous Yes [id number] 325mg Take 1 Un alexa sulfate 325 5-18 tablet by ity of mg (65 mg 00:00: mouth [place] [facility]) 00 daily. Medical tablet Branch ferrous Yes [id number] 325mg Take 1 Un alexa sulfate 325 5-18 tablet by ity of mg (65 mg 00:00: mouth [place] [facility]) 00 daily. Medical tablet Branch ferrous Yes [id number] 325mg Take 1 Un alexa sulfate 325 5-18 tablet by ity of mg (65 mg 00:00: mouth [place] [facility]) 00 daily. Medical tablet Branch ferrous Yes [id number] 325mg Take 1 Un alexa sulfate 325 5-18 tablet by ity of mg (65 mg 00:00: mouth [place] [facility]) 00 daily. Medical tablet Branch ferrous Yes [id number] 325mg Take 1 Un alexa sulfate 325 5-18 tablet by ity of mg (65 mg 00:00: mouth [place] [facility]) 00 daily. Medical tablet Branch ferrous Yes [id number] 325mg Take 1 Un alexa sulfate 325 5-18 tablet by ity of mg (65 mg 00:00: mouth [place] [facility]) 00 daily. Medical tablet Branch ferrous Yes [id number] 325mg Take 1 Un alexa sulfate 325 5-18 tablet by ity of mg (65 mg 00:00: mouth [place] [facility]) 00 daily. Medical tablet Branch ferrous Yes [id number] 325mg Take 1 Un alexa sulfate 325 5-18 tablet by ity of mg (65 mg 00:00: mouth [place] [facility]) 00 daily. Medical tablet Branch ferrous Yes [id number] 325mg Take 1 Un alexa sulfate 325 5-18 tablet by ity of mg (65 mg 00:00: mouth [place] [facility]) 00 daily. Medical tablet Branch ferrous 2021- No [id number] 325mg Take 1 U nivers sulfate 325 5-18 11-03 tablet by it y of mg (65 mg 00:00: 00:00 mouth [place] [facility]) 00 :00 daily. Medical tablet Branch ferrous 2021- No [id number] 325mg Take 1 U nivers sulfate 325 5-18 11-03 tablet by it y of mg (65 mg 00:00: 00:00 mouth [place] [facility]) 00 :00 daily. Medical tablet Branch ferrous 2021- No [id number] 325mg Take 1 U nivers sulfate 325 5-18 11-03 tablet by it y of mg (65 mg 00:00: 00:00 mouth [place] [facility]) 00 :00 daily. Medical tablet Branch ferrous 2021- No [id number] 325mg Take 1 U nivers sulfate 325 5-18 11-03 tablet by it y of mg (65 mg 00:00: 00:00 mouth [place] [facility]) 00 :00 daily. Medical tablet Branch ferrous 2021- No [id number] 325mg Take 1 U nivers sulfate 325 5-18 11-03 tablet by it y of mg (65 mg 00:00: 00:00 mouth [place] [facility]) 00 :00 daily. Medical tablet Branch ferrous 2021- No [id number] 325mg Take 1 U nivers sulfate 325 5-18 11-03 tablet by it y of mg (65 mg 00:00: 00:00 mouth [place] [facility]) 00 :00 daily. Medical tablet Branch PNV Yes Take by [facility] no.95/wander 5-10 mouth. ity of us 14:36: [place] fum/folic 24 Medical ac Branch ( ORAL) PN Yes Take by [facility] no.95/wander 5-10 mouth. ity of us 14:36: [place] fum/folic 24 Medical ac Branch ( ORAL) PNV 2022-0 Yes Take by [facility] no.95/[facility]ander 5-10 mouth. ity of us 14:36: [place] fum/folic 24 Medical ac Branch ( ORAL) PNV 2021-0 Yes Take by [facility] no.95/[facility] 5-10 mouth. ity of us 14:36: [place] fum/folic 24 Medical ac Branch ( ORAL) PNV 2021-0 Yes Take by [facility] no.95/[facility] 5-10 mouth. ity of us 14:36: [place] fum/folic 24 Medical ac Branch ( ORAL) PNV 2021-0 Yes Take by [facility] no.95/[facility] 5-10 mouth. ity of us 14:36: [place] fum/folic 24 Medical ac Branch ( ORAL) PNV 2021-0 Yes Take by [facility] no.95/[facility] 5-10 mouth. ity of us 14:36: [place] fum/folic 24 Medical ac Branch ( ORAL) PNV 2021-0 Yes Take by [facility] no.95/[facility] 5-10 mouth. ity of us 14:36: [place] fum/folic 24 Medical ac Branch ( ORAL) PNV 2021-0 Yes Take by [facility] no.95/[facility]ander 5-10 mouth. ity of us 14:36: [place] fum/folic 24 Medical ac Branch ( ORAL) PNV 2021-0 Yes Take by [facility] no.95/[facility] 5-10 mouth. ity of us 14:36: [place] fum/folic 24 Medical ac Branch ( ORAL) PNV 2021-0 Yes Take by [facility] no.95/[facility] 5-10 mouth. ity of us 14:36: [place] fum/folic 24 Medical ac Branch ( ORAL) PNV 2021-0 Yes Take by [facility] no.95/[place] 5-10 mouth. ity of us 14:36: [place] fum/folic 24 Medical ac Branch ( ORAL) PNV 202-0 Yes Take by [facility] no.95/[facility] 5-10 mouth. ity of us 14:36: [place] fum/folic 24 Medical ac Branch ( ORAL) PNV 2021-0 Yes Take by [facility] no.95/[place] 5-10 mouth. ity of us 14:36: [place] fum/folic 24 Medical ac Branch ( ORAL) PNV 202-0 Yes Take by [facility] no.95/[facility] 5-10 mouth. ity of us 14:36: [place] fum/folic 24 Medical ac Branch ( ORAL) PNV 2021-0 Yes Take by [facility] no.95/[facility] 5-10 mouth. ity of us 14:36: [place] fum/folic 24 Medical ac Branch ( ORAL) PNV 2021-0 Yes Take by [facility] no.95/[facility] 5-10 mouth. ity of us 14:36: [place] fum/folic 24 Medical ac Branch ( ORAL) PNV 2021-0 Yes Take by [facility] no.95/[facility] 5-10 mouth. ity of us 14:36: [place] fum/folic 24 Medical ac Branch ( ORAL) PNV 2021-0 Yes Take by [facility] no.95/[facility] 5-10 mouth. ity of us 14:36: [place] fum/folic 24 Medical ac Branch ( ORAL) PNV 2021-0 Yes Take by [facility] no.95/[facility] 5-10 mouth. ity of us 14:36: [place] fum/folic 24 Medical ac Branch ( ORAL) PNV 2021-0 Yes Take by [facility] no.95/[facility] 5-10 mouth. ity of us 14:36: [place] fum/folic 24 Medical ac Branch ( ORAL) PNV 2021-0 Yes Take by [facility] no.95/[place] 5-10 mouth. ity of us 14:36: [place] fum/folic 24 Medical ac Branch ( ORAL) PNV 2021-0 Yes Take by [facility] no.95/[facility] 5-10 mouth. ity of us 14:36: [place] fum/folic 24 Medical ac Branch ( ORAL) PNV 2021-0 Yes Take by [facility] no.95/[place] 5-10 mouth. ity of us 14:36: [place] fum/folic 24 Medical ac Branch ( ORAL) PNV 2021-0 Yes Take by [facility] no.95/[place] 5-10 mouth. ity of us 14:36: [place] fum/folic 24 Medical ac Branch ( ORAL) PNV 2021-0 Yes Take by [facility] no.95/[place] 5-10 mouth. ity of us 14:36: [place] fum/folic 24 Medical ac Branch ( ORAL) PNV 2021-0 Yes Take by [facility] no.95/[facility] 5-10 mouth. ity of us 14:36: [place] fum/folic 24 Medical ac Branch ( ORAL) PNV 2021-0 Yes Take by [facility] no.95/[facility] 5-10 mouth. ity of us 14:36: [place] fum/folic 24 Medical ac Branch ( ORAL) PNV 2021-0 Yes Take by [facility] no.95/[facility] 5-10 mouth. ity of us 14:36: [place] fum/folic 24 Medical ac Branch ( ORAL) PNV 2021-0 Yes Take by [facility] no.95/wandre 5-10 mouth. ity of us 14:36: [place] fum/folic 24 Medical ac Branch ( ORAL) PNV 2021-0 Yes Take by [facility] no.95/[place]ander 5-10 mouth. ity of us 14:36: [place] fum/folic 24 Medical ac Branch ( ORAL) PNV 2021-0 Yes Take by [facility] no.95/wander 5-10 mouth. ity of us 14:36: [place] fum/folic 24 Medical ac Branch ( ORAL) PNV 2021-0 Yes Take by [facility] no.95/[place] 5-10 mouth. ity of us 14:36: [place] fum/folic 24 Medical ac Branch ( ORAL) PNV 2021-0 Yes Take by [facility] no.95/[facility]ander 5-10 mouth. ity of us 14:36: [place] fum/folic 24 Medical ac Branch ( ORAL) Immunizations Ordered Filled Immunization Date Status Comments [facility] e Immunization Name Name [facility] 2021-10-04 Completed [facility] 00:00:00 [facility] TDAP 2021-10-04 Completed [facility] of 00:00:00 [facility] TDAP 2021-10-04 Completed [facility] of 00:00:00 [facility] TDAP 2021-10-04 Completed [facility] of 00:00:00 [facility] TDAP 2021-10-04 Completed [facility] of 00:00:00 [facility] TDAP 2021-10-04 Completed University of 00:00:00 [facility] TDAP 2021-10-04 Completed [facility] of 00:00:00 [facility] TDAP 2021-10-04 Completed University of 00:00:00 [facility] TDAP 2021-10-04 Completed University of 00:00:00 [facility] TDAP 2021-10-04 Completed University of 00:00:00 [facility] TDAP 2021-10-04 Completed University of 00:00:00 [facility] TD 2021-10-04 Completed University of 00:00:00 [facility] TDAP 2021-10-04 Completed University of 00:00:00 [facility] TDAP 2021-10-04 Completed University of 00:00:00 [facility] TDAP 2021-10-04 Completed University of 00:00:00 [facility] TDAP 2021-10-04 Completed University of 00:00:00 [facility] TDAP 2021-10-04 Completed University of 00:00:00 [facility] TDAP 2021-10-04 Completed University of 00:00:00 [facility] TDAP 2021-10-04 Completed University of 00:00:00 [facility] TDAP 2021-10-04 Completed University of 00:00:00 [facility] TDAP 2021-10-04 Completed University of 00:00:00 [facility] TDAP 2021-10-04 Completed University of 00:00:00 [facility] TDAP 2021-10-04 Completed University of 00:00:00 [facility] TDAP 2021-10-04 Completed University of 00:00:00 [facility] TDAP 2021-10-04 Completed University of 00:00:00 [facility] TDAP 2021-10-04 Completed University of 00:00:00 [facility] TDAP 2021-10-04 Completed University of 00:00:00 [facility] TDAP 2021-10-04 Completed University of 00:00:00 [facility] TDAP 2021-10-04 Completed University of 00:00:00 [facility] TDAP 2021-10-04 Completed University of 00:00:00 [facility] TDAP 2021-10-04 Completed University of 00:00:00 [facility] TDAP 2021-10-04 Completed University of 00:00:00 [facility] TDAP 2021-10-04 Completed University of 00:00:00 [facility] TDAP 2021-10-04 Completed [facility] 00:00:00 [place] [facility] [place] TDAP 2021-10-04 Completed University of 00:00:00 [facility] TDAP 2021-10-04 Completed University of 00:00:00 [facility] TDAP 2021-10-04 Completed University of 00:00:00 [facility] TDAP 2021-10-04 Completed University of 00:00:00 [facility] TDAP 2021-10-04 Completed University of 00:00:00 [facility] TDAP 2021-10-04 Completed University of 00:00:00 [facility] TDAP 2021-10-04 Completed [facility] of 00:00:00 [facility] TDAP 2021-10-04 Completed University of 00:00:00 [facility] TDAP 2021-10-04 Completed [facility] of 00:00:00 [facility] TDAP 2021-10-04 Completed University of 00:00:00 [facility] Adacel (Tdap) Adacel (Tdap) 2020-07-01 Completed [facility] - 11:47:00 [facility] Adacel (Tdap) Adacel (Tdap) 2020-07-01 Completed [facility] - 11:47:00 [facility] Vital Signs Vital Name Observation Time Observation Value Comments Source Systolic blood 2022-01-11 19:34:00 131 mm[Hg] Univer sity of pressure [facility] Diastolic blood 2022-01-11 19:34:00 83 mm[Hg] Unive rsity of [facility] Heart rate 2022-01-11 19:15:00 76 /min [facility] Body temperature 2022-01-11 19:15:00 36.83 [facility] 2022-01-11 19:15:00 18 /min [facility] Body height 2022-01-11 19:15:00 165.1 cm [facility] Body weight 2022-01-11 19:15:00 131.997 kg [facility] BMI 2022-01-11 19:15:00 48.42 kg/m2 [facility] Systolic blood 2021-12-28 17:33:00 136 mm[Hg] Univer sity of pressure [facility] Diastolic blood 2021-12-28 17:33:00 85 mm[Hg] Unive rsity of pressure [facility] Heart rate 2021-12-28 17:33:00 69 /min [facility] Body temperature 2021-12-28 17:33:00 36.72 Alicja Univ ersity of [facility] Respiratory rate 2021-12-28 17:33:00 18 /min Univ ersity of [facility] Body height 2021-12-28 17:33:00 165.1 cm Universi ty of [facility] Body weight 2021-12-28 17:33:00 139.98 kg Universi ty of [facility] BMI 2021-12-28 17:33:00 51.35 kg/m2 Universi ty of [facility] Systolic blood 2021-12-24 16:18:00 128 mm[Hg] Univer sity of pressure [facility] Diastolic blood 2021-12-24 16:18:00 65 mm[Hg] Unive rsity of pressure [facility] Heart rate 2021-12-24 16:18:00 77 /min Universi ty of [facility] Body temperature 2021-12-24 16:18:00 36.83 Alicja Univ ersity of [facility] Respiratory rate 2021-12-24 16:18:00 18 /min [facility] O[facility] saturation in 2021-12-24 16:18:00 99 /min [facility] Arterial blood by [facility] Pulse oximetry Branch Body height 2021-12-20 17:45:00 165.1 cm 5' 5" Universi ty of [facility] Body weight 2021-12-20 17:45:00 146.512 kg 323lb Universi ty of [facility] BMI 2021-12-20 17:45:00 53.75 kg/m2 Universi ty of [facility] Respiratory rate 2021-12-21 23:04:00 18 /min Univ ersity of [facility] Systolic blood 2021-12-15 19:22:00 130 mm[Hg] Univer sity of pressure [facility] Diastolic blood 2021-12-15 19:22:00 78 mm[Hg] Unive rsity of pressure [facility] Heart rate 2021-12-15 19:22:00 79 /min Universi ty of [facility] Body temperature 2021-12-15 19:22:00 36.61 Alicja Univ ersity of [facility] Respiratory rate 2021-12-15 19:22:00 18 /min Univ ersity of [facility] Body height 2021-12-15 19:22:00 165.1 cm Universi ty of [facility] Body weight 2021-12-15 19:22:00 142.883 kg Universi ty of [facility] BMI 2021-12-15 19:22:00 52.42 kg/m2 Universi ty of [facility] Systolic blood 2021-12-12 20:07:00 119 mm[Hg] Univer sity of pressure [facility] Diastolic blood 2021-12-12 20:07:00 67 mm[Hg] Unive rsity of pressure [facility] Heart rate 2021-12-12 20:07:00 98 /min Universi ty of [facility] Body temperature 2021-12-12 20:07:00 36.72 Alicja Univ ersity of [facility] Respiratory rate 2021-12-12 20:07:00 18 /min Univ ersity of [facility] Body height 2021-12-12 20:07:00 165.1 cm Universi ty of [facility] Body weight 2021-12-12 20:07:00 142.248 kg Universi ty of [facility] BMI 2021-12-12 20:07:00 52.19 kg/m2 Universi ty of [facility] Systolic blood 2021-12-08 17:15:00 117 mm[Hg] Univer sity of pressure [facility] Diastolic blood 2021-12-08 17:15:00 77 mm[Hg] Unive rsity of pressure [facility] Heart rate 2021-12-08 17:15:00 72 /min Universi ty of [facility] Body temperature 2021-12-08 17:15:00 36.67 Alicja Univ ersity of [facility] Respiratory rate 2021-12-08 17:15:00 16 /min Univ ersity of [facility] Body height 2021-12-08 17:15:00 165.1 cm Universi ty of [facility] Body weight 2021-12-08 17:15:00 140.615 kg Universi ty of [facility] BMI 2021-12-08 17:15:00 51.59 kg/m2 Universi ty of [facility] Systolic blood 2021-12-05 16:47:00 114 mm[Hg] Univer sity of pressure [facility] Diastolic blood 2021-12-05 16:47:00 75 mm[Hg] Unive rsity of pressure [place] [facility] Heart rate 2021-12-05 16:47:00 64 /min [facility]i [facility] [place] [facility] Body temperature 2021-12-05 16:47:00 36.72 Alicja [facility] ersity of [place] [facility] Respiratory rate 2021-12-05 16:47:00 18 /min Univ ersity of [place] [facility] Body height 2021-12-05 16:47:00 165.1 cm [facility]i [facility] [place] [facility] Body weight 2021-12-05 16:47:00 139.254 kg [facility]i [facility] of [place] [facility] BMI 2021-12-05 16:47:00 51.09 kg/m2 Universi ty of [facility] Systolic blood 2021-12-01 19:46:00 112 mm[Hg] Univer sity of pressure [place] [facility] Diastolic blood 2021-12-01 19:46:00 71 mm[Hg] Unive rsity of pressure [place] [facility] Heart rate 2021-12-01 19:46:00 78 /min [facility]i [facility] [place] [facility] Body temperature 2021-12-01 19:46:00 37 Alicja [facility] ersity of [place] [facility] Respiratory rate 2021-12-01 19:46:00 18 /min Univ ersity of [facility] Body height 2021-12-01 19:46:00 165.1 cm [facility]i [facility] of [place] [facility] Body weight 2021-12-01 19:46:00 138.801 kg [facility]i [facility] of [place] [facility] BMI 2021-12-01 19:46:00 50.92 kg/m2 Universi ty of [facility] Systolic blood 2021-11-24 18:23:00 117 mm[Hg] Univer sity of pressure [place] [facility] Diastolic blood 2021-11-24 18:23:00 73 mm[Hg] Unive rsity of pressure [place] [facility] Heart rate 2021-11-24 18:23:00 83 /min [facility]i [facility] [place] [facility] Body temperature 2021-11-24 18:23:00 36.83 Alicja [facility] ersity of [place] [facility] Body height 2021-11-24 18:23:00 165.1 cm [facility]i [facility] [place] [facility] Body weight 2021-11-24 18:23:00 135.807 kg [facility]i [facility] [place] [facility] BMI 2021-11-24 18:23:00 49.82 kg/m2 Universi ty of [facility] Systolic blood 2021-11-22 18:19:00 116 mm[Hg] Univer sity of pressure [place] [facility] Diastolic blood 2021-11-22 18:19:00 71 mm[Hg] Unive rsity of pressure [facility] Heart rate 2021-11-22 18:19:00 79 /min Universi ty of [facility] Body temperature 2021-11-22 18:19:00 37.06 Alicja Univ ersity of [facility] Respiratory rate 2021-11-22 18:19:00 18 /min Univ ersity of [facility] Body height 2021-11-22 18:19:00 165.1 cm Universi ty of [facility] Body weight 2021-11-22 18:19:00 136.533 kg Universi ty of [facility] BMI 2021-11-22 18:19:00 50.09 kg/m2 Universi ty of [facility] Systolic blood 2021-11-17 19:43:00 126 mm[Hg] Univer sity of pressure [facility] Diastolic blood 2021-11-17 19:43:00 67 mm[Hg] Unive rsity of pressure [facility] Heart rate 2021-11-17 19:43:00 83 /min Universi ty of [facility] Body temperature 2021-11-17 19:43:00 37.06 Alicja Univ ersity of [facility] Body height 2021-11-17 19:43:00 165.1 cm [facility]i [facility] of [place] [facility] Body weight 2021-11-17 19:43:00 134.809 kg [facility]i [facility] [place] [facility] BMI 2021-11-17 19:43:00 49.46 kg/m2 Universi ty of [facility] Systolic blood 2021-11-10 18:37:00 99 mm[Hg] Univer sity of pressure [place] [facility] Diastolic blood 2021-11-10 18:37:00 67 mm[Hg] Unive rsity of pressure [place] [facility] Heart rate 2021-11-10 18:37:00 84 /min Universi ty of [facility] Body temperature 2021-11-10 18:37:00 37 Alicja Univ ersity of [facility] Body height 2021-11-10 18:37:00 165.1 cm [facility] [place] [facility] Body weight 2021-11-10 18:37:00 133.811 kg [facility]i [facility] [place] [facility] BMI 2021-11-10 18:37:00 49.09 kg/m2 Universi ty of [facility] Systolic blood 2021-11-03 20:38:00 138 mm[Hg] Univer sity of pressure [place] [facility] Diastolic blood 2021-11-03 20:38:00 74 mm[Hg] Unive rsity of pressure [facility] Heart rate 2021-11-03 20:38:00 77 /min Universi ty of [facility] Body temperature 2021-11-03 20:38:00 36.78 Alicja Univ ersity of [facility] Respiratory rate 2021-11-03 20:38:00 18 /min Univ ersity of [facility] Body height 2021-11-03 20:38:00 165.1 cm [facility]i ty of [facility] Body weight 2021-11-03 20:38:00 133.993 kg [facility]i [facility] [place] [facility] BMI 2021-11-03 20:38:00 49.16 kg/m2 [facility] [place] [facility] Systolic blood 2021-11-01 16:41:00 116 mm[Hg] Univer sity of pressure [place] [facility] Diastolic blood 2021-11-01 16:41:00 75 mm[Hg] Unive rsity of pressure [place] [facility] Heart rate 2021-11-01 16:41:00 80 /min [facility] [place] [facility] Body temperature 2021-11-01 16:41:00 36.72 Alicja Univ ersity of [facility] Respiratory rate 2021-11-01 16:41:00 18 /min Univ ersity of [facility] Body height 2021-11-01 16:41:00 165.1 cm [facility] [place] [facility] Body weight 2021-11-01 16:41:00 134.809 kg [facility] [place] [facility] BMI 2021-11-01 16:41:00 49.46 kg/m2 Universi ty of [facility] Systolic blood 2021-10-27 20:30:00 129 mm[Hg] Univer sity of pressure [place] [facility] Diastolic blood 2021-10-27 20:30:00 70 mm[Hg] Unive rsity of pressure [place] [facility] Heart rate 2021-10-27 20:30:00 81 /min [facility] [place] [facility] Body temperature 2021-10-27 20:30:00 36.83 Alicja [facility] ersity of [place] [facility] Respiratory rate 2021-10-27 20:30:00 18 /min [facility] Body height 2021-10-27 20:30:00 165.1 cm [facility] [place] [facility] Body weight 2021-10-27 20:30:00 135.263 kg [facility] BMI 2021-10-27 20:30:00 49.62 kg/m2 [facility] BMI 2021-10-14 20:35:00 49.49 kg/m2 [facility] Systolic blood 2021-10-14 20:35:00 113 mm[Hg] [facility] Diastolic blood 2021-10-14 20:35:00 72 mm[Hg] [facility] [place] [facility] Heart rate 2021-10-14 20:35:00 80 /min [facility] [place] [facility] Body temperature 2021-10-14 20:35:00 36.89 Alicja [facility] Respiratory rate 2021-10-14 20:35:00 20 /min [facility] Body height 2021-10-14 20:35:00 165.1 cm [facility] Body weight 2021-10-14 20:35:00 134.888 kg [facility] Systolic blood 2021-10-04 21:19:00 133 mm[Hg] [facility] [place] [facility] Diastolic blood 2021-10-04 21:19:00 69 mm[Hg] [facility] [place] [facility] Heart rate 2021-10-04 21:19:00 86 /min [facility] [place] [facility] Body temperature 2021-10-04 21:19:00 36.67 Alicja [facility] [place] [facility] Respiratory rate 2021-10-04 21:19:00 18 /min [facility] Body height 2021-10-04 21:19:00 165.1 cm [facility] Body weight 2021-10-04 21:19:00 133.448 kg [facility] BMI 2021-10-04 21:19:00 48.96 kg/m2 [facility] height 2020-07-27 11:30:00 65 [in_i] [facility] weight 2020-07-27 11:30:00 289 [lb_av] Common [facility] temperature 2020-07-27 11:30:00 98 [degF] Common [facility] bmi 2020-07-27 11:30:00 48.09 kg/m2 [facility] height 2020-07-01 11:00:00 65 [in_i] [facility] weight 2020-07-01 11:00:00 289.5 [lb_av] [facility] temperature 2020-07-01 11:00:00 97.7 [degF] Common [facility] bmi 2020-07-01 11:00:00 48.17 kg/m2 [facility] oximetry 2020-07-01 11:00:00 100 % [facility] respiratory rate 2020-07-01 11:00:00 17 /min Comm on [facility] blood pressure 2020-07-01 11:00:00 142 mm[Hg] Common [facility] - systolic [facility] blood pressure 2020-07-01 11:00:00 79 mm[Hg] Common [facility] - diastolic [facility] Systolic blood 2021-12-23 13:00:00 134 mm[Hg] [facility] Diastolic blood 2021-12-23 13:00:00 61 mm[Hg] [facility] Heart rate 2021-12-23 13:00:00 80 /min [facility] Body temperature 2021-12-23 13:00:00 36.89 Alicja [facility] Res[facility] rate 2021-12-23 13:00:00 18 /min [facility] Oxygen saturation in 2021-12-23 13:00:00 100 /min [facility] Arterial blood by [facility] Pulse oximetry [place] Body height 2021-12-20 17:45:00 165.1 cm 5' 5" [facility] Body weight 2021-12-20 17:45:00 146.512 kg 323lb [facility] BMI 2021-12-20 17:45:00 53.75 kg/m2 [facility] Procedures Procedure Date / Time Performing Clinician Source Performed CBC WITH DIFF 2021-12-22 09:18:00 Keyshawn Langford [facility] CBC WITH DIFF 2021-12-22 09:18:00 [facility] [place] [facility] GLUCOSE (AUTOMATED) 2021-12-21 19:10:00 Keyshawn Langford [facility] POCT GLUCOSE (AUTOMATED) 2021-12-21 19:10:00 Keyshawn Langford [facility] PROTEIN CREAT RATIO 2021-12-21 14:29[facility] URINALYSIS 2021-12-21 14:29:00 Keyshawn Langford [facility] URINALYSIS 2021-12-21 14:29:00 [facility] [place] PROTEIN CREAT RATIO 2021-12-21 14:29:00 Keyshawn Langford [facility] URINE RANDOM [facility] POCT GLUCOSE (AUTOMATED) 2021-12-21 14:02:00 Keyshawn Langford [facility] POCT GLUCOSE (AUTOMATED) 2021-12-21 14:02:00 Keyshawn Langford [facility] CENTRAL NEURAXIAL BLOCK 2021-12-21 13:32:25 Bud [facility] CENTRAL NEURAXIAL BLOCK 2021-12-21 13:32:25 Bud R [facility] POCT GLUCOSE (AUTOMATED) 2021-12-21 09:40:00 Keyshawn Langford [facility] POCT GLUCOSE (AUTOMATED) 2021-12-21 09:40:00 Keyshawn Langford [facility] POCT GLUCOSE (AUTOMATED) 2021-12-21 06:05:00 Keyshawn Langford [facility] POCT GLUCOSE (AUTOMATED) 2021-12-21 06:05:00 Keyshawn Langford [facility] POCT GLUCOSE (AUTOMATED) 2021-12-21 01:48:00 Keyshawn Langford [facility] POCT GLUCOSE (AUTOMATED) 2021-12-21 01:48:00 Keyshawn Langford [facility] POCT GLUCOSE (AUTOMATED) 2021-12-20 22:04:00 [facility]UCOSE (AUTOMATED) 2021-12-20 22:04:00 Keyshawn Langford [facility] CBC WITH DIFF 2021-12-20 20:43:00 [facility] [place] CBC WITH DIFF 2021-12-20 20:43:00 [facility] [place] HEPATITIS B SURFACE 2021-12-20 18:01:00 Keyshawn Langford [facility] ANTIGEN [facility] Branch ADC OR SARAH ONLY - 2021-12-20 18:01:00 Keyshawn Langford [facility] RPR Medical Branch HIV 1/2 AG-AB WITH 2021-12-20 18:01:[address] [facility] REFLEX Medical Branch URIC ACID 2021-12-20 18:01:00 Keyshawn Langford [facility] Branch CREATININE 2021-12-20 18:01:00 [facility] [place] SGOT (ASPARTATE AMINO 2021-12-20 18:01:00 [facility] ALANINE AMINO 2021-12-20 18:01:00 Keyshawn Langford [facility] TRANSFERASE(SGPT Medical Branch SGOT (ASPARTATE AMINO 2021-12-20 18:01:00 Keyshawn Langford [facility]) Medical Branch CREATININE 2021-12-20 18:01:00 Keyshawn Langford [facility] ALANINE AMINO 2021-12-20 18:01:00 [facility](SGPT Medical Branch URIC ACID 2021-12-20 18:01:00 Primitivo [facility] HEPATITIS B SURFACE 2021-12-20 18:01:00 Keyshawn Langford [facility] ANTIGEN Medical Branch ADC OR SARAH ONLY - 2021-12-20 18:01:00 Keyshawn Langford [facility] RPR Medical Branch HIV 1/2 AG-AB WITH 2021-12-20 18:01:[address] [facility] REFLEX Medical Branch HB ABO GROUPING 2021-12-20 18:00:00 [facility] [place] RHO (D) IMMUNE GLOBULIN 2021-12-20 18:00:[address] [facility] HB ABO GROUPING 2021-12-20 18:00:00 [facility] [place] RHO (D) IMMUNE GLOBULIN 2021-12-20 18:00:[address] [facility] POCT GLUCOSE (AUTOMATED) 2021-12-20 17:52:[address] [facility] POCT GLUCOSE (AUTOMATED) 2021-12-20 17:52:[address] [facility] CONSENT/REFUSAL FOR 2021-12-20 17:15:57 [facility] CONSENT/REFUSAL FOR 2021-12-20 17:15:57 Doctor Unassigned, No [facility] DIAGNOSIS AND TREATMENT [facility] ASSIGNMENT OF BENEFITS 2021-12-20 17:13:16 Doctor Unassigned, No [facility] ASSIGNMENT OF BENEFITS 2021-12-20 17:13:16 Doctor Unassigned, No [facility] SECOND AND THIRD 2021-12-19 19:27:00 Keyshawn Langford [facility] TRIMESTER ULTRASOUND [facility] NON-STRESS TEST 2021-12-15 22:58:14 Keyshawn Langford [facility] NON-STRESS TEST 2021-12-15 22:58:14 Keyshawn Langford [facility] POCT URINALYSIS W/O 2021-12-15 19:42:00 Keyshawn Langford [facility] SPECIFIC [facility] POCT URINALYSIS W/O 2021-12-15 19:42:00 Keyshawn Langford [facility] SPECIFIC [facility] DIABETES TESTING REPORTS 2021-12-15 05:01:00 Doctor Unassigned, No [facility] DIABETES TESTING REPORTS 2021-12-15 05:01:00 Doctor Unassigned, No [facility] NON-STRESS TEST 2021-12-12 22:35:26 Keyshawn Langford [facility] NON-STRESS TEST 2021-12-12 22:35:26 Keyshawn Langford [facility] >14 WEEKS US 2021-12-08 22:54:11 Keyshawn Langford [facility] >14 WEEKS US 2021-12-08 22:54:11 Keyshawn Langford [facility] NON-STRESS TEST 2021-12-08 22:51:57 Keyshawn Langford [facility] NON-STRESS TEST 2021-12-08 22:51:57 Keyshawn Langford [facility] CBC WITH DIFF 2021-12-08 18:37:00 Keyshawn Langford [facility] GROUP B STREPTOCOCCUS BY 2021-12-08 18:29:00 Keyshawn Langford [facility] PCR [facility] GC & CHLAMYDIA AMPLIFIED 2021-12-08 18:29:00 Keyshawn Langford [facility] ASSAY [facility] POCT URINALYSIS W/O 2021-12-08 17:17:00 Keyshawn Langford [facility] SPECIFIC [facility] POCT URINALYSIS W/O 2021-12-08 17:17:00 Keyshawn Langford [facility] SPECIFIC [facility] DSU PRE-OP 2021-12-08 05:01:00 Doctor Unassigned, Tia [facility] DIABETES TESTING REPORTS 2021-12-08 05:01:00 Doctor Unassigned, No [facility] DSU PRE-OP 2021-12-08 05:01:00 Doctor Unassigned, Tia [facility] NON-STRESS TEST 2021-12-05 19:09:58 Leelee Everardo [facility] NON-STRESS TEST 2021-12-05 19:09:58 Everardo Mckoy [facility] NON-STRESS TEST 2021-12-02 02:18:22 Keyshawn Langford [facility] NON-STRESS TEST 2021-12-02 02:18:22 Keyshawn Langford [facility] NON-STRESS TEST 2021-11-24 19:44:28 Keyshawn Langford [facility] NON-STRESS TEST 2021-11-24 19:44:28 Keyshawn Langford [facility] URINE CULTURE 2021-11-24 18:27:00 Keyshawn Langford [facility] DIABETES TESTING REPORTS 2021-11-24 05:01:00 Doctor Unassigned, Tia [facility] POCT URINALYSIS W/O 2021-11-24 00:00:00 Keyshawn Langford [facility] SPECIFIC GRAVITY [facility] POCT URINALYSIS W/O 2021-11-24 00:00:00 Keyshawn Langford [facility] SPECIFIC GRAVITY [facility] NON-STRESS TEST 2021-11-22 20:16:08 Keyshawn Langford [facility] NON-STRESS TEST 2021-11-22 20:16:08 Keyshawn Langford [facility] SECOND AND THIRD 2021-11-21 16:26:00 Keyshawn Langford [facility] TRIMESTER ULTRASOUND [facility] NON-STRESS TEST 2021-11-17 21:48:49 Keyshawn Langford [facility] NON-STRESS TEST 2021-11-17 21:48:49 Keyshawn Langford [facility] DIABETES TESTING REPORTS 2021-11-17 05:01:00 Doctor UnassignedTia [facility] DIABETES TESTING REPORTS 2021-11-17 05:01:00 Doctor Unassigned, No [facility] POCT URINALYSIS W/O 2021-11-17 00:00:00 Langford Keyshawn Seaman [facility] POCT URINALYSIS W/O 2021-11-17 00:00:00 Keyshawn Langford Jurgen [facility] DME/SUPPLY JUSTIFICATION 2021-11-15 05:01:00 Doctor Unassigned, No [facility] URINE CULTURE 2021-11-10 18:44:00 Keyshawn Langford [facility] POCT URINALYSIS W/O 2021-11-10 00:00:00 Keyshawn Langford [facility] POCT URINALYSIS W/O 2021-11-10 00:00:00 LangfordVasylalicia Seaman [facility] DIABETES TESTING REPORTS 2021-11-09 05:01:00 Doctor Unassigned, No [facility] DIABETES TESTING REPORTS 2021-11-09 05:01:00 Doctor Unassigned, No [facility] DIABETES TESTING REPORTS 2021-11-03 05:01:00 Doctor Unassigned, No [facility] POCT URINALYSIS W/O 2021-11-03 00:00:00 Primitivo Keyshawnalicia Seaman [facility] POCT URINALYSIS W/O 2021-11-03 00:00:00 Primitivo Keyshawnalicia Seaman [facility] NON-STRESS TEST 2021-11-01 18:26:05 Everardo Mckoy [facility] NON-STRESS TEST 2021-11-01 18:26:05 Everardo Mckoy [facility] DME/SUPPLY JUSTIFICATION 2021-11-01 05:01:00 Doctor Unassigned, No [facility] DME/SUPPLY JUSTIFICATION 2021-11-01 05:01:00 Doctor Unassigned, No [facility] URINE DRUG (IMMUNOASSAY) 2021-10-27 20:43:[address] [facility] SCREEN URINE DRUG (IMMUNOASSAY) 2021-10-27 20:43:00 Keyshawn Langford [facility] DRUG [facility] SCREEN POCT URINALYSIS W/O 2021-10-27 00:00:00 Keyshawn Langford Jurgen [facility] SPECIFIC GRAVITY [facility] POCT URINALYSIS W/O 2021-10-27 00:00:00 Primitivo Keyshawn Seaman [facility] SPECIFIC GRAVITY [facility] SECOND AND THIRD 2021-10-19 16:28:00 Everardo Mckoy [facility] TRIMESTER ULTRASOUND [facility] 3 HR GLUCOSE TOLERANCE 2021-10-11 16:59:00 Everardo Mckoy [facility] TEST [facility] 2 HR GLUCOSE TOLERANCE 2021-10-11 15:57:00 Everardo Mckoy [facility] 1 HR GLUCOSE TOLERANCE 2021-10-11 14:56:00 [facility] TEST [facility] ADC OR SARAH ONLY - 2021-10-11 13:57:00 [facility] CBC WITH DIFF 2021-10-11 13:57:00 Leelee [facility] HIV 1/2 AG-AB WITH 2021-10-11 13:57:[address] [facility] REFLEX Medical Branch 3 HR GLUCOSE TOLERANCE 2021-10-11 13:57:00 Everardo Mckoy [facility] PANEL [facility] GLUCOSE FASTING 2021-10-11 13:57:00 Everardo Mckoy [facility] GLUCOSE FASTING 2021-10-11 13:57:00 Everardo Mckoy [facility] CBC WITH DIFF 2021-10-11 13:57:00 Leelee Everardo [facility] HIV 1/2 AG-AB WITH 2021-10-11 13:57:[address] [facility] REFLEX Medical Branch HB ABO GROUPING 2021-10-11 13:54:00 Everardo Mckoy [facility] TDAP VACCINE, >11 YRS, 2021-10-04 21:54:59 Everardo Mckoy [facility] TDAP VACCINE, >11 YRS, 2021-10-04 21:54:59 Everardo Mckoy [facility] POCT URINALYSIS W/O 2021-10-04 00:00:00 Everardo Mckoy [facility] POCT URINALYSIS W/O 2021-10-04 00:00:00 Everardo Mckoy [facility] SCANNED LAB RESULTS 2021-07-28 05:01:00 [facility] Start End Encounter Admission Attending Care Care Encounter Source Date/Time Date/Time Type Type Clinicians Facility Department ID 2021-03-16 Outpatient Braden, [facility] [id number] Common 13:13:12 [place] [address] [facility] 2021-03-16 [facility] [id number] Common 13:12:04 [place] [address] [facility] 2021-03-16 Outpatient Braden, [facility]LC [facility] [id number] Common 13:11:28 [place] [address] [facility] 2021-03-16 [facility] [id number] Common 13:02:58 [place] [address] [facility] 2022-02-08 2022-02-08 Outpatient R KEYSHAWN LANGFORD [facility] [id number] Univers 09:30:00 09:30:00 ity of [facility] 2022-01-11 2022-01-11 Outpatient R KEYSHAWN LANGFORD [facility] [id number] Univers 13:15:00 14:15:55 ity of [facility] 2022-01-11 2022-01-11 Routine Keyshawn Langford [facility] [id number] Univers 13:15:00 14:15:55 [place] 350.1.13.10 ity of Visit [place] 4.2.7.2.686 Sydney BORDEN [id number] [address] 2022-01-02 2022-01-02 Outpatient R KEYSHAWN LANGFORD [facility] [id number] Univers 13:15:00 13:15:00 ity of [facility] 2021-12-28 2021-12-28 Outpatient R KEYSHAWN LANGFORD [facility] [id number] Univers 11:00:00 11:55:35 ity of [facility] 2021-12-28 2021-12-28 Routine Keyshawn Langford [facility] [id number] [id number] Univers 11:00:00 11:55:35 Cam [place] 350.1.13.10 [place]686 [place] [facility] [id number] N[place] dical NAL 134 [facility] 2021-12-20 2021-12-24 Hospital Keyshawn Langford [facility] 1.2.840.114 [id number] Univers 12:11:00 17:15:00 Encounter Cam [place] 350.1.13.10 [facility] [place] [id number] [facility] 083 [place] 2021-12-20 2021-12-24 Inpatient P KEYSHAWN LANGFORD [facility] BETH [id number] Univers 12:11:00 17:15:00 ity of [facility] 2021-12-21 2021-12-21 Anesthesia Cody Hart S 1.2.840.1 1 [id number] Univers 07:39:00 18:15:00 Event Leydi Farrell 18248.1.1 ity of 3.104.2.7 [place] .3.738686 Medica l .8 [place] 2021-12-20 2021-12-20 Anesthesia Alquicira-M 1.2.840.1 [id number] Univers 21:53:52 21:53:52 Event christianne 20307.1.1 ity of [place] 3.104.2.7 [place] .3.519007 Medica l .8 [place] 2021-12-20 2021-12-20 Outpatient R [facility] [id number] Univers 13:00:00 13:00:00 ity of [facility] 2021-12-20 2021-12-20 Telephone Keyshawn Langford 1.2.840.5 [id number] Univers 00:00:00 00:00:00 Cam 59250.1.1 ity of 3.104.2.7 [place] .3.319113 Medica l .8 [place] 2021-12-19 2021-12-19 Morphologist Harriet Lobato.2.840.4 [id number] Univers 14:30:00 15:13:34 Visit Damian 64925.1.1 ity of 3.104.2.7 [place] .3.873508 Medica l .8 [place] 2021-12-19 2021-12-19 Outpatient P DESTINEE [facility] [id number] Univers 14:30:00 14:30:00 DAMIAN ity of [facility] 2021-12-15 2021-12-15 Ancillary Keyshawn Langford 1.2.840.4 [id number] Univers 18:00:00 19:00:00 Procedure Cam 53271.1.1 it y of 3.104.2.7 [place] .3.021006 Medica l .8 [place] 2021-12-15 2021-12-15 Outpatient R KEYSHAWN LANGFORD [facility] [id number] Univers 14:00:00 15:49:00 ity of [facility] 2021-12-15 2021-12-15 Routine Keyshawn Langford Cam 1.2.840.3 [id number] Univers 14:00:00 15:49:00 Room, [facility] Nst 54387.1.1 ity of Visit 3.104.2.7 [place] .3.299598 Medica l .8 [place] 2021-12-15 2021-12-15 Travel 1.2.840.1 1.2.414.945 [id number] Univers 00:00:00 00:00:00 65801.1.1 350.1.13.10 ity of 3.104.2.7 4[place]7.3.698 [place] .3.869649 084.8 Medica l .8 [place] 2021-12-15 2021-12-15 Refill Vangerardo, 1.2.840.8 [id number] Univers 00:00:00 00:00:00 Everardo 63009.1.1 ity of 3.104.2.7 [place] .3.314267 Medica l .8 [place] 2021-12-15 2021-12-15 Orders Doctor 1.2.840.1 [id number] Univers 00:00:00 00:00:00 Only Unassigned, 36621.1.1 ity of [place] 3.104.2.7 [place] .3.525009 Medica l .8 [place] 2021-12-13 2021-12-13 Refill Leelee, 1.2.840.7 [id number] Univers 00:00:00 00:00:00 Everardo 52516.1.1 ity of 3.104.2.7 [place] .3.491833 Medica l .8 [place] 2021-12-12 2021-12-12 Ancillary Keyshawn Langford 1.2.840.1 [id number] Univers 17:40:00 18:40:00 Procedure Cam 01588.1.1 it y of 3.104.2.7 [place] .3.717919 Medica l .8 [place] 2021-12-12 2021-12-12 Outpatient R KEYSHAWN LANGFORD [facility] [id number] Univers 15:00:00 16:25:18 ity of [facility] 2021-12-12 2021-12-12 Routine Keyshawn Langford Cam 1.2.840.5 [id number] Univers 15:00:00 16:25:18 Room, [facility] Nst 41918.1.1 ity of Visit 3.104.2.7 [place] .3.950028 Medica l .8 [place] 2021-12-08 2021-12-08 Ancillary Keyshawn Langford 1.2.840.2 [id number] Univers 18:00:00 19:00:00 Procedure Cam 32788.1.1 it y of 3.104.2.7 [place] .3.578017 Medica l .8 Branch 2021-12-08 2021-12-08 Ancillary Primitivo Keyshawn 1.2.840.2 [id number] Univers 17:55:00 18:55:00 Procedure Cam 92444.1.1 it y of 3.104.2.7 [place] .3.779352 Medica l .8 Branch 2021-12-08 2021-12-08 Morphologist Keyshawn Langford Cam 1.2.840.1 [id number] Univers 13:30:00 13:37:07 Visit 2, [facility] 09748.1.1 i ty of 3.104.2.7 [place] .3.468438 Medica l .8 Branch 2021-12-08 2021-12-08 Outpatient R KEYSHAWN LANGFORD [facility] [id number] Univers 11:00:00 13:30:49 ity of [facility] 2021-12-08 2021-12-08 Routine Keyshawn Langford Cam 1.2.840.9 [id number] Univers 11:00:00 13:30:49 Room, [facility] Nst 34510.1.1 ity of Visit 3.104.2.7 [place] .3.969243 Medica l .8 [place] 2021-12-08 2021-12-08 Orders Doctor 1.2.840.9 [id number] Univers 00:00:00 00:00:00 Only Unassigned, 67813.1.1 ity of [place] 3.104.2.7 [place] .3.912944 Medica l .8 Branch 2021-12-08 2021-12-08 Travel 1.2.840.1 1.2.758.602 [id number] Univers 00:00:00 00:00:00 95375.1.1 350.1.13.10 ity of 3.104.2.7 4.2.7.3.698 [place] .3.495072 084.8 Medica l .8 [place] 2021-12-08 2021-12-08 Case Keyshawn Langford 1.2.840.8 [id number] Univers 00:00:00 00:00:00 Management Cam 72968.1.1 i ty of 3.104.2.7 [place] .3.635135 Medica l .8 Branch 2021-12-05 2021-12-05 Ancillary Leelee, 1.2.840.8 [id number] Univers 14:10:00 14:34:58 Procedure Everardo 32835.1.1 it y of 3.104.2.7 [place] .3.220548 Medica l .8 [place] 2021-12-05 2021-12-05 Outpatient R KEYSHAWN LANGFORD [facility] [id number] Univers 11:00:00 12:10:36 ity of [facility] 2021-12-05 2021-12-05 Routine Keyshawn Langford 1.2.840.9 [id number] Univers 11:00:00 12:10:36 Room, [facility] Nst 95368.1.1 ity of Visit 3.104.2.7 [place] .3.943464 Medica l .8 [place] 2021-12-05 2021-12-05 Travel 1.2.840.1 1.2.944.916 [id number] Univers 00:00:00 00:00:00 68964.1.1 350.1.13.10 ity of 3.104.2.7 4.[place].7.3.698 [place] .3.819586 084.8 Medica l .8 [place] 2021-12-02 2021-12-02 Refill Keyshawn Langford 1.2.840.7 [id number] Univers 00:00:00 00:00:00 Cam 63266.1.1 ity of 3.104.2.7 [place] .3.791880 Medica l .8 Branch 2021-12-01 2021-12-01 Ancillary Keyshawn Langford 1.2.840.5 [id number] Univers 21:20:00 22:20:00 Procedure Cam 79731.1.1 it y of 3.104.2.7 [place] .3.377825 Medica l .8 [place] 2021-12-01 2021-12-01 Outpatient R KEYSHAWN LANGFORD [facility] [id number] Univers 14:00:00 15:25:37 ity of [facility] 2021-12-01 2021-12-01 Routine Kesyhawn Langford Cam 1.2.840.5 [id number] Univers 14:00:00 15:25:37 Room, [facility] Nst 12596.1.1 ity of Visit 3.104.2.7 [place] .3.329528 Medica l .8 [place] 2021-12-01 2021-12-01 Travel 1.2.840.1 1.2.932.433 [id number] Univers 00:00:00 00:00:00 89044.1.1 350.1.13.10 ity of 3.104.2.7 4.2.7.3.698 [place] .3.366510 084.8 Medica l .8 [place] 2021-11-28 2021-11-28 Outpatient R VASYL LANGFORDEN [facility] [id number] Univers 13:00:00 13:00:00 ity of [facility] 2021-11-24 2021-11-24 Ancillary Keyshawn Langford 1.2.840.5 [id number] Univers 14:45:00 15:09:10 Procedure Cam 13917.1.1 it y of 3.104.2.7 [place] .3.142992 Medica l .8 [place] 2021-11-24 2021-11-24 Outpatient R VASYL LANGFORDEN [facility] [id number] Univers 13:00:00 14:30:59 ity of [facility] 2021-11-24 2021-11-24 Routine Keyshawn Langford Cam 1.2.840.2 [id number] Univers 13:00:00 14:30:59 Room, [facility] Nst 73183.1.1 ity of Visit 3.104.2.7 [place] .3.465781 Medica l .8 [place] 2021-11-24 2021-11-24 Travel 1.2.840.1 1.2.988.532 6947 [id number] Univers 00:00:00 00:00:00 76501.1.1 350.1.13.10 ity of 3.104.2.7 4.[place].7.3.698 [place] .3.547801 084.8 Medica l .8 [place] 2021-11-22 2021-11-22 Ancillary Keyshawn Langford 1.2.840.8 [id number] Univers 15:20:00 16:03:48 Procedure Cam 57713.1.1 it y of 3.104.2.7 [place] .3.209634 Medica l .8 [place] 2021-11-22 2021-11-22 Outpatient R KEYSHAWN LANGFORD [facility] [id number] Univers 13:00:00 14:51:13 ity of [facility] 2021-11-22 2021-11-22 Routine Keyshawn Langford Cam 1.2.840.1 [id number] Univers 13:00:00 14:51:13 Room, [facility] 55334.1.1 ity of Visit 3.104.2.7 [place] .3.768114 Medica l .8 [place] 2021-11-22 2021-11-22 Travel 1.2.840.1 1.2.945.355 4501 5270 Univers 00:00:00 00:00:00 81657.1.1 350.1.13.10 ity of 3.104.2.7 [place].3.698 [place] .[place].475135 084.8 Medica l .8 [place] 2021-11-21 2021-11-21 Morphologist Dania 1.2.840.6 [id number] Univers 10:30:00 10:58:58 Visit Tonya Khanh 17593.1.1 it y of 3.104.2.7 [place] .3.736479 Medica l .8 [place] 2021-11-21 2021-11-21 Outpatient P DANIA [facility] [id number] Univers 10:30:00 10:30:00 TONYA ity of [facility] 2021-11-17 2021-11-17 Ancillary Keyshawn Langford 1.2.840.6 [id number] Univers 16:50:00 17:50:00 Procedure Cam 56965.1.1 it y of 3.104.2.7 [place] .3.860792 Medica l .8 [place] 2021-11-17 2021-11-17 Outpatient R KEYSHAWN LANGFORD [facility] [id number] Univers 14:15:00 16:06:52 ity of [facility] 2021-11-17 2021-11-17 Routine Keyshawn Langford 1.2.840.9 [id number] Univers 14:15:00 16:06:52 Cam 02219.1.1 ity of Visit 3.104.2.7 [place] .3.488399 Medica l .8 [place] 2021-11-17 2021-11-17 Travel 1.2.840.1 1.2.593.336 0129 [id number] Univers 00:00:00 00:00:00 04368.1.1 350.1.13.10 ity of 3.104.2.7 4.[place]7.3.698 [place] .3.074191 084.8 Medica l .8 [place] 2021-11-17 2021-11-17 Refill Leelee, 1.2.840.5 [id number] Univers 00:00:00 00:00:00 Everardo 07366.1.1 ity of 3.104.2.7 [place] .3.889590 Medica l .8 [place] 2021-11-17 2021-11-17 Orders Doctor 1.2.840.9 [id number] Univers 00:00:00 00:00:00 Only Unassigned, 66361.1.1 ity of [place] 3.104.2.7 [place] .3.075261 Medica l .8 [place] 2021-11-15 2021-11-15 Telephone Keyshawn Langford 1.2.840.9 [id number] Univers 00:00:00 00:00:00 Cam 09787.1.1 ity of 3.104.2.7 [place] .3.806968 Medica l .8 [place] 2021-11-10 2021-11-10 Outpatient R LANGFORD, [facility] [id number] Univers 13:00:00 14:19:49 ity of [facility] 2021-11-10 2021-11-10 Routine Keyshawn Langford 1.2.840.3 [id number] Univers 13:00:00 14:19:49 Cam 89422.1.1 ity of Visit 3.104.2.7 [place] .3.257833 Medica l .8 [place] 2021-11-09 2021-11-09 Orders Doctor 1.2.840.6 [id number] Univers 00:00:00 00:00:00 Only Unassigned, 39383.1.1 ity of [place] 3.104.2.7 [place] .3.866892 Medica l .8 [place] 2021-11-03 2021-11-03 Outpatient R PRIMITIVO [facility] [id number] Univers 15:15:00 16:15:39 ity of [facility] 2021-11-03 2021-11-03 Routine LangfordVasylen 1.2.840.7 [id number] Univers 15:15:00 16:15:39 Cam 09164.1.1 ity of Visit 3.104.2.7 [place] .3.642808 Medica l .8 [place] 2021-11-03 2021-11-03 Travel 1.2.840.1 1.2.072.768 9531 [id number] Univers 00:00:00 00:00:00 56135.1.1 350.1.13.10 ity of 3.104.2.7 4[place].3.698 [place] .3.140498 084.8 Medica l .8 [place] 2021-11-01 2021-11-01 Ancillary Vanjadielan, 1.2.840.5 [id number] Univers 13:30:00 13:52:14 Procedure Everardo 94115.1.1 it y of 3.104.2.7 [place] .3.137746 Medica l .8 [place] 2021-11-01 2021-11-01 Outpatient R PRIMITIVO [facility] [id number] Univers 11:00:00 11:58:57 ity of [facility] 2021-11-01 2021-11-01 Routine Keyshawn Langford Cam 1.2.840.4 [id number] Univers 11:00:00 11:58:57 Room, [facility] Nst 51276.1.1 ity of Visit 3.104.2.7 [place] .3.057632 Medica l .8 [place] 2021-11-01 2021-11-01 Travel 1.2.840.1 1.2.866.943 5935 3529 Univers 00:00:00 00:00:00 32763.1.1 350.1.13.10 ity of 3.104.2.7 4[place].7.3.698 [place] .3.611651 084.8 Medica l .8 [place] 2021-11-01 2021-11-01 Telephone Keyshawn Langford 1.2.840.3 [id number] Univers 00:00:00 00:00:00 Cam 15111.1.1 ity of 3.104.2.7 [place] .3.884282 Medica l .8 [place] 2021-11-01 2021-11-01 Refill Keyshawn Langford 1.2.840.0 [id number] Univers 00:00:00 00:00:00 Cam 29998.1.1 ity of 3.104.2.7 [place] .3.172670 Medica l .8 [place] 2021-11-01 2021-11-01 Orders Doctor 1.2.840.6 [id number] Univers 00:00:00 00:00:00 Only Unassigned, 31056.1.1 ity of [place] 3.104.2.7 [place] .3.849179 Medica l .8 [place] 2021-10-27 2021-10-27 Outpatient R KEYSHAWN LANGFORD [facility] [id number] Univers 15:30:00 16:11:12 ity of [facility] 2021-10-27 2021-10-27 Routine Keyshawn Langford 1.2.840.1 [id number] Univers 15:30:00 16:11:12 Cam 45193.1.1 ity of Visit 3.104.2.7 [place] .3.952281 Medica l .8 [place] 2021-10-27 2021-10-27 Travel 1.2.840.1 1.2.633.788 [id number] 8289 Univers 00:00:00 00:00:00 58685.1.1 350.1.13.10 ity of 3.104.2.7 4[place].3.698 [place] .3.434320 084.8 Medica l .8 [place] 2021-10-26 2021-10-26 Outpatient R KEYSHAWN LANGFORD [facility] [id number] Univers 16:00:00 16:00:00 ity of [facility] 2021-10-19 2021-10-19 Morphologist Jere 1.2.840.3 [id number] Univers 11:00:00 11:30:11 Visit Trung 05009.1.1 ity of 3.104.2.7 [place] .3.315295 Medica l .8 [place] 2021-10-19 2021-10-19 Outpatient P TRUNG JOHN [facility] [id number] Univers 11:00:00 11:00:00 TRUNG JOHN ity of [facility] 2021-10-17 2021-10-17 Telephone Leelee, 1.2.840.3 [id number] Univers 00:00:00 00:00:00 Everardo 68319.1.1 ity of 3.104.2.7 [place] .3.940538 Medica l .8 [place] 2021-10-14 2021-10-14 Outpatient KEYSHAWN RAHMAN [facility] [id number] Univers 14:00:00 15:19:52 ity of [facility] 2021-10-14 2021-10-14 Nurse Keyshawn Langford 1.2.840.8 [id number] Univers 14:00:00 15:19:52 Visit Nurse, [facility] 09957.1.1 ity of 3.104.2.7 [place] .3.875400 Medica l .8 [place] 2021-10-14 2021-10-14 Travel 1.2.840.1 1.2.684.308 5485 0927 Univers 00:00:00 00:00:00 13148.1.1 350.1.13.10 ity of 3.104.2.7 4[place]7.3.698 [place] .3.619435 084.8 Medica l .8 [place] 2021-10-11 2021-10-11 Morphologist Delroy Sariah L 1.2.840.5 [id number] Univers 08:45:00 09:00:00 Visit 2, Ad[facility] Lab 26759.1.1 i ty of 3.104.2.7 [place] .3.777829 Medica l .8 [place] 2021-10-11 2021-10-11 Outpatient R [facility] [id number] Univers 08:45:00 08:45:00 ity [facility] 2021-10-11 2021-10-11 [facility] [id number] Univers 08:45:00 08:45:00 SARIAH [facility] 2021-10-04 2021-10-04 [facility] [id number] Univers 16:15:00 16:48:29 EVERARDO [facility] 2021-10-04 2021-10-04 Routine Leelee, 1.2.840.6 [id number] Univers 16:15:00 16:48:29 Everardo 29591.1.1 ity of Visit 3.104.2.7 [place] .3.761283 Medica l .8 [place] 2021-10-04 2021-10-04 [facility] [id number] Univers 16:15:00 16:48:29 EVERARDOFormerly [facility] 2021-09-14 2021-09-14 Emergency X JORDYN [facility] ERT [id number] Univers 21:45:00 22:27:00 DANITA [facility] 2021-09-13 2021-09-13 [facility] 1.2.225.531 [id number] Univers 00:00:00 00:00:00 Sariah LAU 350.1.13.10 it[id number] [address] 2021-09-13 2021-09-13 Telephone Adum, [facility] 1.2.069.410 [id number] 2171 Univers 00:00:00 00:00:00 Sariah LAU 350.1.13.10 it[place] [id number] [address] 2021-09-08 2021-09-08 Morphologist Ultrasound, [facility] 1.2 .840.114 [id number] Univers 13:00:00 14:03:53 Visit Trey Shannon [employer]CH[employer] APPRENTICE 350.1.13.10 ity of [facility] 4.2.7.2.686 [place] MATERNAL [id number] [facility] ical & CHILD [address] [place] [address] 2021-09-08 2021-09-08 Outpatient P TREY SHANNON [facility] [id number] Univers 13:00:00 13:00:00 TREY SHANNON [facility] 2021-08-31 2021-08-31 Outpatient R DELROY [facility] [id number] Univers 13:00:00 13:00:00 [facility] 2021-08-31 2021-08-31 Outpatient R KALPESH OLSON [facility] B [id number] Univers 11:30:00 12:05:29 KALPESH OLSON [facility] 2021-08-31 2021-08-31 [facility] 1.2.840.114 [id number] Univers 11:30:00 12:05:29 Kalpesh MIRELES 350.1.13.10 i ty of Visit [place] [id number] [address] 2021-08-26 2021-08-26 Outpatient P [facility] [id number] Univers 08:45:00 08:45:00 ity of [facility] 2021-08-24 2021-08-24 Outpatient R ADUM, [facility] [id number] Univers 14:00:00 14:00:00 SARIAH ity [facility] 2021-08-23 2021-08-23 Outpatient R ADUM, [facility] [id number] Univers 11:00:00 11:00:00 SARIAH itcielo [facility] 2021-08-17 2021-08-17 Telephone Adum, [facility] 1.2.595.280 [id number] Univers 00:00:00 00:00:00 Sariah Sorin ALU 350.1.13.10 it[place] [id number] [place] dical [facility] [address] [facility] 2021-07-28 2021-07-28 Morphologist 2, Adc Lab [facility] 1.2.840.114 [id number] Univers 09:30:00 09:45:00 Visit Adum, Sariah Sorin LAU 350.1.13.10 it[place] [id number] [place] dical [facility] [address] [facility] 2021-07-28 2021-07-28 Outpatient R ADUM, [facility] [id number] Univers 09:30:00 09:30:00 SARIAH ity [facility] 2021-07-28 2021-07-28 Outpatient R ADUM, [facility] [id number] Univers 08:30:00 08:30:00 SARIAH itcielo [facility] 2021-07-28 2021-07-28 Orders Doctor STEPHANIE 1.2.840.114 [id number] Univers 00:00:00 00:00:00 Only Unassigned, RE 350.1.13.10 ity of [place] [facility] 4.2.7.2.686 [place] [id number] [address] 2021-07-26 2021-07-26 Outpatient R ADUM, [facility] [id number] Univers 13:00:00 14:05:15 SARIAH itcielo [facility] 2021-07-26 2021-07-26 Routine Adum, [facility] 1.2.840.114 [id number] Univers 13:00:00 14:05:15 Sariah LAU 350.1.13.10 ity [facility] 4[place] [id number] [place] dical NAL [address] [facility] 2021-07-06 2021-07-06 Case Adum, [facility] 1.2.840.114 [id number] Univers 00:00:00 00:00:00 Management Sariah LAU 350.1.13.10 it[place] of [place] [id number] [place] dical NAL [address] [facility] 2021-07-05 2021-07-05 Morphologist 2, Adc Lab [facility] 1.2.840.114 [id number] Univers 10:30:00 10:45:00 Visit Brady Zarate 350.1.13.10 ity of Adum, [facility]h [facility] 4.2.7.2.686 [place] PROFESSIO [id number] Nc dical NAL [address] [facility] 2021-07-05 2021-07-05 [facility] [id number] Univers 10:30:00 10:30:00 SARIAH ity [facility] 2021-06-30 2021-06-30 Outpatient R [facility] [id number] Univers 10:30:00 10:30:00 ity of [facility] 2021-06-30 2021-06-30 Case Adum, [facility] 1.2.840.114 [id number] Univers 00:00:00 00:00:00 Management Sariah LAU 350.1.13.10 it[place] of [place].2.[place] [id number] Nc dical NAL [address] [facility] 2021-06-28 2021-06-28 Outpatient R ADUM, [facility] [id number] Univers 14:00:00 15:29:35 SARIAH ity [facility] 2021-06-28 2021-06-28 Initial Adum, [facility] 1.2.840.114 [id number] Univers 14:00:00 15:29:35 Sariah LAU 350.1.13.10 ity of [facility] 4.2.7.2.686 Sydney BORDEN [id number] Nc dical NAL [address] [facility] 2021-06-28 2021-06-28 Orders Doctor STEPHANIE 1.2.840.114 [id number] Univers 00:00:00 00:00:00 Only Unassigned, RE 350.1.13.10 ity of [place] [facility] 4.2.7.2.686 [place] [id number] [facility] [address] 2021-06-23 2021-06-23 Outpatient Leydi POTTS, [facility] [id number] Univers 14:30:00 14:30:00 SARIAH ity of [facility] 2020-07-27 2020-07-27 (TELEAUD) STLMLC STLC [id number] Common 00:00:00 00:00:00 AUDIO [facility] 2020-07-01 2020-07-01 PREV VISIT STLC STLC [id number] Common 00:00:00 00:00:00 NEW AGE [facility] 18-39 - [facility] Results Test Description Test Time Test Comments Results Result Comments Source CBC with Differential 2021-12-22 10:29:15 Test Item Value Reference Range Interpretation Comme nts WBC (test code = 6690-2) See_Comment H [A utomated message] The system which ge nerated this result transmit sienna reference range: 4.30 - 1 1.10 10*3/?L. The reference r soledad was not used to interpr et this result as normal/abnor mal. RBC (test code = 789-8) See_Comment L [Au tomated message] The system which ge nerated this result transmit sienna reference range: 3.93 - 5 .25 10*6/?L. The reference r soledad was not used to interpr et this result as normal/abnor mal. HGB (test code = 718-7) 9.4 g/dL 11.6-15.0 L HCT (test code = 4544-3) 28.5 % 35.7-45.2 L MCV (test code = 787-2) 89.6 fL 80.6-95.5 MCH (test code = 785-6) 29.6 pg 25.9-32.8 MCHC (test code = 786-4) 33.0 g/dL 31.6-35.1 RDW-SD (test code = 62079-1) 45.6 fL 39.0-49.9 RDW-CV (test code = 788-0) 14.1 % 12.0-15.5 PLT (test code = 777-3) See_Comment [Au tomated message] The system which ge nerated this result transmit sienna reference range: 166 - 35 8 10*3/?L. The reference range was not used to interpret th is result as normal/abnormal . MPV (test code = 79393-1) 9.6 fL 9.5-12.9 NRBC/100 WBC (test code = See_Comment [ Automated message] The 9788383793) system which ge nerated this result transmit sienna reference range: 0.0 - 10 .0 /100 WBCs. The reference r soledad was not used to interpr et this result as normal/abnor mal. NRBC x10^3 (test code = See_Comment [Au tomated message] The 5913111098) system which [employer] nerated this result transmit sienna reference range: 10*3/?L. The reference range was not u sed to interpret this result as normal/abnormal . GRAN MAT (NEUT) % (test code 79.1 % = 770-8) IMM GRAN % (test code = 0.90 % 1307319422) LYMPH % (test code = 736-9) 13.6 % MONO % (test code = 5905-5) 5.9 % EOS % (test code = 713-8) 0.3 % BASO % (test code = 706-2) 0.2 % GRAN MAT x10^3(ANC) (test 10.26 10*3/uL 1.88-7.09 H code = 5319884146) IMM GRAN x10^3 (test code = 0.12 10*3/uL 0.00-0.06 H 7637461754) LYMPH x10^3 (test code = 1.77 10*3/uL 1.32-3.29 731-0) MONO x10^3 (test code = 0.76 10*3/uL 0.33-0.92 742-7) EOS x10^3 (test code = 0.04 10*3/uL 0.03-0.39 711-2) BASO x10^3 (test code = 0.01-0.07 704-7) Lab Interpretation (test Abnormal code = 63881-7) [facility] with [id number] 10:29:15 Test Item Value Reference Range Interpretation Comments WBC (test code = See_Comment H [Automated 6690-2) message] The system which generated this result transmit sienna reference range : 4.30 - 11.10 10*3/?L. The reference range was not used to interpret this result as normal/abnormal . RBC (test code = See_Comment L [Automated 789-8) message] The system which generated this result transmit sienna reference range : 3.93 - 5.25 10*6/?L. The reference range was not used to interpret this result as normal/abnormal . HGB (test code = 9.4 g/dL 11.6-15.0 L 718-7) HCT (test code = 28.5 % 35.7-45.2 L 4544-3) MCV (test code = 89.6 fL 80.6-95.5 787-2) MCH (test code = 29.6 pg 25.9-32.8 785-6) MCHC (test code = 33.0 g/dL 31.6-35.1 786-4) RDW-SD (test code = 45.6 fL 39.0-49.9 94187-0) RDW-CV (test code = 14.1 % 12.0-15.5 788-0) PLT (test code = See_Comment [Automated 777-3) message] The system which generated this result transmit sienna reference range : 166 - 358 10*3/ ?L. The reference range was not u sed to interpret th is result as normal/abnormal . MPV (test code = 9.6 fL 9.5-12.9 65824-6) NRBC/100 WBC (test See_Comment [Automat ed code = 4787781370) message] The system which generated this result transmit sienna reference range : 0.0 - 10.0 /100 WBCs. The reference range was not used to interpret this result as normal/abnormal . NRBC x10^3 (test code See_Comment [Auto mated = 6095160534) message] The system which generated this result transmit sienna reference range : 10*3/?L. The reference range was not used to interpret this result as normal/abnormal . GRAN MAT (NEUT) % 79.1 % (test code = 770-8) IMM GRAN % (test code 0.90 % = 4404686285) LYMPH % (test code = 13.6 % 736-9) MONO % (test code = 5.9 % 5905-5) EOS % (test code = 0.3 % 713-8) BASO % (test code = 0.2 % 706-2) GRAN MAT x10^3(ANC) 10.26 10*3/uL 1.88-7.09 H (test code = 2982336547) IMM GRAN x10^3 (test 0.12 10*3/uL 0.00-0.06 H code = 1224500012) LYMPH x10^3 (test code 1.77 10*3/uL 1.32-3.29 = 731-0) MONO x10^3 (test code 0.76 10*3/uL 0.33-0.92 = 742-7) EOS x10^3 (test code = 0.04 10*3/uL 0.03-0.39 711-2) BASO x10^3 (test code 0.01-0.07 = 704-7) Lab Interpretation Abnormal (test code = 46226-3) General acute hospital (D) IMMUNE [id number] 01:07:01 Test Item Value Reference Range Interpretation Comments RHIG CANDIDATE? No- see comment Patient i s not a (test code = candidate for R hIg- 5055) Patient is Rh Positive.Perfor med at [facility] Laboratory Services - [facility] Blood [address] [place] [phone] Free: [phone] A No. [id number] General acute hospital (D) IMMUNE [id number] 01:07:01 Test Item Value Reference Range Interpretation Comments RHIG CANDIDATE? No- see comment Patient i s not a (test code = candidate for R hIg- 5055) Patient is Rh Positive.Perfor med at [facility] Laboratory Services - [facility] Blood [address] [place] [phone] Free: [phone] A No. [id number] [facility] GLUCOSE (AUTOMATED)2021-12-21 19:15:37 Test Item Value Reference Range Interpretation Comments POCT GLU (test code = 3710711472) 102 mg/dL 70-110 Lab Interpretation (test code = Normal 16736-4) [facility] GLUCOSE (AUTOMATED)2021-12-21 19:15:37 Test Item Value Reference Range Interpretation Comments POCT GLU (test code = 1719559597) 102 mg/dL 70-110 Lab Interpretation (test code = Normal 39565-5) [facility] GLUCOSE (AUTOMATED)2021-12-21 14:05:06 Test Item Value Reference Range Interpretation Comments POCT GLU (test code = 0650280686) 117 mg/dL 70-110 H Lab Interpretation (test code = Abnormal 14367-4) [facility] GLUCOSE (AUTOMATED)2021-12-21 09:46:08 Test Item Value Reference Range Interpretation Comments POCT GLU (test code = 4457639468) 91 mg/dL 70-110 Lab Interpretation (test code = Normal 72342-1) [facility] GLUCOSE (AUTOMATED)2021-12-21 06:11:13 Test Item Value Reference Range Interpretation Comments POCT GLU (test code = 0774327687) 85 mg/dL 70-110 Lab Interpretation (test code = Normal 14501-6) [facility] GLUCOSE (AUTOMATED)2021-12-21 01:51:59 Test Item Value Reference Range Interpretation Comments POCT GLU (test code = 2703864214) 114 mg/dL 70-110 H Lab Interpretation (test code = Abnormal 06141-0) [facility] GLUCOSE (AUTOMATED)2021-12-20 22:36:19 Test Item Value Reference Range Interpretation Comments POCT GLU (test code = 6352729428) 109 mg/dL 70-110 Lab Interpretation (test code = Normal 34224-4) [facility] with [id number] 22:23:39 Test Item Value Reference Range Interpretation Comments WBC (test code = See_Comment H [Automated 6690-2) message] The system which generated this result transmit sienna reference range : 4.30 - 11.10 10*3/?L. The reference range was not used to interpret this result as normal/abnormal . RBC (test code = See_Comment L [Automated 789-8) message] The system which generated this result transmit sienna reference range : 3.93 - 5.25 10*6/?L. The reference range was not used to interpret this result as normal/abnormal . HGB (test code = 11.0 g/dL 11.6-15.0 L 718-7) HCT (test code = 32.5 % 35.7-45.2 L 4544-3) MCV (test code = 88.3 fL 80.6-95.5 787-2) MCH (test code = 29.9 pg 25.9-32.8 785-6) MCHC (test code = 33.8 g/dL 31.6-35.1 786-4) RDW-SD (test code = 46.0 fL 39.0-49.9 47428-6) RDW-CV (test code = 14.4 % 12.0-15.5 788-0) PLT (test code = See_Comment [Automated 777-3) message] The system which generated this result transmit sienna reference range : 166 - 358 10*3/ ?L. The reference range was not u sed to interpret th is result as normal/abnormal . MPV (test code = 9.8 fL 9.5-12.9 33685-5) NRBC/100 WBC (test See_Comment [Automat ed code = 1566253029) message] The system which generated this result transmit sienna reference range : 0.0 - 10.0 /100 WBCs. The reference range was not used to interpret this result as normal/abnormal . NRBC x10^3 (test code See_Comment [Auto mated = [id number]) message] The system which generated this result transmit sienna reference range : 10*3/?L. The reference range was not used to interpret this result as normal/abnormal . GRAN MAT (NEUT) % 80.7 % (test code = 770-8) IMM GRAN % (test code 1.30 % = [id number]) LYMPH % (test code = 11.7 % 736-9) MONO % (test code = 5.5 % 5905-5) EOS % (test code = 0.5 % 713-8) BASO % (test code = 0.3 % 706-2) GRAN MAT x10^3(ANC) 11.96 10*3/uL 1.88-7.09 H (test code = 5400818074) IMM GRAN x10^3 (test 0.19 10*3/uL 0.00-0.06 H code = [id number]) LYMPH x10^3 (test code 1.74 10*3/uL 1.32-3.29 = 731-0) MONO x10^3 (test code 0.82 10*3/uL 0.33-0.92 = 742-7) EOS x10^3 (test code = 0.07 10*3/uL 0.03-0.39 711-2) BASO x10^3 (test code 0.05 10*3/uL 0.01-0.07 = 704-7) Lab Interpretation Abnormal (test code = 48532-5) [facility] [id number] 18:45:38 Test Item Value Reference Range Interpretation Comments ABO & RH (test code O Positive Performe d at [facility] = 20) Laboratory [facility] [place], [place] [id number] Free: [phone] A No. [id number] IAT (test code = Negative Performed [place] 1185) Laboratory [facility] [place], [place] [address]Toll Free: [phone] A No. [id number] [facility] [id number] 18:45:38 Test Item Value Reference Range Interpretation Comments ABO & RH (test code O Positive Performe d at UT = 20) Laboratory [facility]1 [address] [place] [id number] Free: [phone] A No. [id number] IAT (test code = Negative Performed a t [facility] 1185) Laboratory Serv [facility] Blood [facility]1 [address] [place] [id number] Free: [phone] A No. [id number] [facility] GLUCOSE (AUTOMATED)2021-12-20 18:10:56 Test Item Value Reference Range Interpretation Comments POCT GLU (test code = 4201808012) 197 mg/dL 70-110 H Lab Interpretation (test code = Abnormal 50652-7) [facility] URINALYSIS W/O SPECIFIC [id number] 19:42:00 Test Item Value Reference Range Interpretation Comments POCT PH U (test code = 3254) n/a 5-8 POCT U LEUK EST (test code = n/a Negative - Negative 3263) POCT U NIT (test code = 3262) n/a Negative - Negative POCT U PROT (test code = 3259) negative Negative - Negative POCT U GLU (test code = 3256) negative Negative - Negative POCT U KETONE (test code = 3258) n/a Negative - Negative POCT U BLD (test code = 3257) n/a Negative - Negative [facility] URINALYSIS W/O SPECIFIC [id number] 19:42:00 Test Item Value Reference Range Interpretation Comments POCT PH U (test code = 3254) n/a 5-8 POCT U LEUK EST (test code = n/a Negative - Negative 3263) POCT U NIT (test code = 3262) n/a Negative - Negative POCT U PROT (test code = 3259) negative Negative - Negative POCT U GLU (test code = 3256) negative Negative - Negative POCT U KETONE (test code = 3258) n/a Negative - Negative POCT U BLD (test code = 3257) n/a Negative - Negative [facility] URINALYSIS W/O SPECIFIC [id number] 17:18:00 Test Item Value Reference Range Interpretation Comments POCT PH U (test code = 3254) N/A 5-8 POCT U LEUK EST (test code = N/A Negative - Negative 3263) POCT U NIT (test code = 3262) N/A Negative - Negative POCT U PROT (test code = 3259) Trace Negative - Negative POCT U GLU (test code = 3256) Negative Negative - Negative POCT U KETONE (test code = 3258) N/A Negative - Negative POCT U BLD (test code = 3257) N/A Negative - Negative [facility] [id number] 18:21:00 Test Item Value Reference Range Interpretation Comments POCT PH U (test code = 3254) 7 mg/dl 5-8 POCT U LEUK EST (test code = ++ Negative - Negative 3263) POCT U NIT (test code = 3262) Negative Negative - Negative POCT U PROT (test code = 3259) Negative Negative - Negative POCT U GLU (test code = 3256) Normal Negative - Negative POCT U KETONE (test code = 3258) + small Negative - Negative POCT U BLD (test code = 3257) Negative [facility] - [facility] [id number] 19:41:00 Test Item Value Reference Range Interpretation Comments POCT PH U (test code = 3254) n/a 5-8 POCT U LEUK EST (test code = n/a Negative - Negative 3263) POCT U NIT (test code = 3262) n/a Negative - Negative POCT U PROT (test code = 3259) Negative Negative - Negative POCT U GLU (test code = 3256) Normal Negative - Negative POCT U KETONE (test code = 3258) n/a Negative - Negative POCT U BLD (test code = 3257) n/a Negative - Negative [facility] SPECIFIC [id number] 18:35:00 Test Item Value Reference Range Interpretation Comments POCT PH U (test code = 3254) 7 mg/dl 5-8 POCT U LEUK EST (test code = ++ Negative - Negative 3263) POCT U NIT (test code = 3262) Negative Negative - Negative POCT U PROT (test code = 3259) Negative Negative - Negative POCT U GLU (test code = 3256) Normal Negative - Negative POCT U KETONE (test code = 3258) Small Negative - Negative POCT U BLD (test code = 3257) Negative Negative - Negative [facility] URINALYSIS W/O SPECIFIC [id number] 20:36:00 Test Item Value Reference Range Interpretation Comments POCT PH U (test code = 3254) N/A 5-8 POCT U LEUK EST (test code = N/A Negative - Negative 3263) POCT U NIT (test code = 3262) N/A Negative - Negative POCT U PROT (test code = 3259) NEGATIVE Negative - Negative POCT U GLU (test code = 3256) NEGATIVE Negative - Negative POCT U KETONE (test code = 3258) N/A Negative - Negative POCT U BLD (test code = 3257) N/A Negative - Negative [facility] URINALYSIS W/O SPECIFIC [id number] 20:35:00 Test Item Value Reference Range Interpretation Comments POCT PH U (test code = 3254) n/a 5-8 POCT U LEUK EST (test code = n/a Negative - Negative 3263) POCT U NIT (test code = 3262) n/a Negative - Negative POCT U PROT (test code = 3259) negative Negative - Negative POCT U GLU (test code = 3256) negative Negative - Negative POCT U KETONE (test code = 3258) n/a Negative - Negative POCT U BLD (test code = 3257) n/a Negative - Negative [facility] WORKUP, BLOOD [id number] 21:01:43 Test Item Value Reference Range Interpretation Comments ABO & RH (test code O POSITIVE Performe d at [facility] = 20) Laboratory Serv [facility] Blood Bank3 [facility] s [id number] Free: [phone] A No. [id number] IAT (test code = Negative Performed a t [facility] 1185) Laboratory Serv [facility]3 [facility] s [id number] Free: [phone] A No. [id number] [facility] URINALYSIS W/O SPECIFIC [id number] 21:16:00 Test Item Value Reference Range Interpretation Comments POCT PH U (test code = 3254) n/a 5-8 POCT U LEUK EST (test code = n/a Negative - Negative 3263) POCT U NIT (test code = 3262) n/a Negative - Negative POCT U PROT (test code = 3259) negative Negative - Negative POCT U GLU (test code = 3256) negative Negative - Negative POCT U KETONE (test code = 3258) n/a Negative - Negative POCT U BLD (test code = 3257) n/a Negative - Negative [facility]ULTPAT[facility], [id number] 13:04:51SPECIMEN NUMBER: [id number] CULTURE, URINE SPECIMEN NUMBER: [id number] SPECIMEN COMMENT: URINE SOURCE:URINE REPORT STATUS: FINAL FINAL REPORT: 07/22/2021 <10,000 CFU/ML UROGENITAL WANG PRESENT NO COMMON PATHOGENS PRELIMINARY URINE CULTURE: 07/21/2021 NO GROWTH AFTER 12 HOURS INCUBATIONVAGINAL PATHOGENS DNA PANEL 2021-07-21 13:59:17 Test Item Value Reference Range Interpretation Comments ANNETTE SPECIES (test POSITIVE NEGATIVE A code = ) G. VAGINALIS (test NEGATIVE NEGATIVE code = 14483) T. VAGINALIS (test NEGATIVE NEGATIVE UNLESS O THERWISE code = 35667) INDICATED, ALL TESTING PERFORMED [facility] PATHOLOGY LABOR [facility] [address] [place] [address] LABORATORY DIRE CTOR: APARNA SAHA M.D. CLIA NUMBER [id number] [facility] [place]. [id number] PAP TEST, THINPREP, [id number] 15:20:53 Test Item Value Reference Range Interpretation Comments SOURCE: (test Cervical/Endoc code = 8001) ervical SLIDES: (test 2 code = 8011) LMP: (test code 03/24/2021 = 8021) SPECIMEN (NOTE) Satisfactory f or ADEQUACY: (test evaluation. code = 32390) Endocervical cells/transform ation zone component present. INTERPRETATION: NILM/NO EPITH. (test code = ABNORMALITY;SE 21444) E BELOW ------- NEGATIVE FO R INTRAEPITHELIAL LESION OR MALIGNANCY ( NILM) --------- --------- --------- - OTHER COMMENTS: (NOTE) Background m aterial (test code = consistent with 8081) lubricant is pr esent, whichinterferes with specimen processing.Inte rpreted using an altern ate method of proce ssing. This testwas de veloped and its perform ance characteristics determined byCl inical Pathology [facility], [facility]. It has not been cleared orappro yandy by the FDA. The la boratory is regulated un sandy CLIA asqualified to perform high-complexity testing. This test is us edfor clinical purpos es. It should not be r egarded asinvestigation al or for research. IRRIGATOR VALVE PIPE Cyn : (test code = Elliott, 8101) CT(ASCP) QC TECHNOLOGIST: Sincere (test code = [facility]( 8111) CP),[facility] LOCATION: (test (NOTE) Specimens pr ocessed and code = 29128) interpreted at [facility], [address] [place] [id number], , CLIA: [id number] CPT: (test code (NOTE) 26596 UNLESS OTHERWISE = 8140) INDICATED, COMP UTER AIDED AND CYTOTECHNOLOGIS T SCREENING PERFO RMED. The Pap test is a s creening test with an in herent, but low probabi lity of error. Your pat ient should be remin ded to consult you imm ediately if she experien komal any suspicious sign s or symptoms, regar dless of her Pap test re sult. An alternate repor t format containing imag es or consolidated pr ior Pap history is avai lable as applicable. HEMOGLOBIN [id number] 09:24:47 Test Item Value Reference Range Interpretation Comments HEMOGLOBIN A1 (test 97.7 % 95.0-98.5 code = 2575) HEMOGLOBIN A2 (test 2.3 % 1.6-3.7 code = 2576) HEMOGLOBIN F () 0.0 % 0.0-2.0 (test code = 2722) HEMOGLOBIN S (test NONE % NONE DETECTED code = 2724) HEMOGLOBIN C (test NONE % NONE DETECTED code = 2726) OTHER HEMOGLOBIN NONE DETEC % NONE DETECTED VARIANT (test code = 44803) PATHOLOGIST'S (NOTE) NO ABNORMAL INTERPRETATION (test HEMOGLO BINS code = 2577) IDENTIFIED. GABBI CENTENO M.D. THC METABOLITE, QUANT, [id number] 21:14:12 Test Item Value Reference Range Interpretation Comments CARBOXY-THC Positive A INTERP (test code = 43722) CARBOXY-THC 426 ng/mL <15 H Reference rang e indicates QNT (test cutoff for posi tive result code = 13454) determination. Specimen Type: Urine Urine tina g and metabolite concentrations are dependent on manyfactors, in cluding patient compliance, tina g dosing, dosing interval,indivi dual variation in drug absorpt ion and metabolism, uri neconcentration, and limitations of testing. Assay is intend ed formedical purposes only, not for forensic use. This test was developed and its perform ance characteristics determined by [facility] ([facility]). It has n ot beencleared or approved by the U.S. Food and Drug Admini stration (FDA).The FDA h as determined that such clear ance or approval is notnecessary . This test is used for clinic al purposes and should not frederick garded as investigational or for research. [facility] i s qualified toperform high complexity testing under t he Clinical LaboratoryImpro vement Amendments (CLI A). TESTING PERFORMED AT [facility] [address], [address], [address] [place], [place] [address] CLIA NO: [id number] UNLE SS OTHERWISE INDICATED, ALL TEST[facility] [place] [address] [facility], [place] [address] DIRECTOR STATE [facility]AC[facility]: APARNA HI M.D. CLIA NUMBJonathan [id number] [place] O. [id number] CULTURE, [id number] 10:22:20SPECIMEN NUMBER: [id number] CULTURE, URINE SPECIMEN NUMBER: [id number] SPECIMEN COMMENT: URINE SOURCE:URINE REPORT STATUS: FINAL FINAL REPORT: 05/25/2021 <10,000 CFU/ML UROGENITAL WANG PRESENT NO COM MON PATHOGENSCT/NG, NAAT, [id number] 17:26:49 Test Item Value Reference Range Interpretation Comments GONORRHEA, NAAT NEGATIVE NEGATIVE IMPORTA NT NOTICE: SEE (test code = [place] [address]) [email or web address] Note: Assay methodology is nucleic acid amplification b y image assembler m ediated amplification ( TMA) utilizing the A ptima Combo 2 Assay. CHLAMYDIA, NAAT NEGATIVE NEGATIVE IMPORTA NT NOTICE: SEE (test code = [place] [address]) [email or web address] Note: Assay methodology is nucleic acid amplification b y image assembler m ediated amplification ( TMA) utilizing the A ptima Combo 2 Assay. HPV HIGH RISK WITH GENOTYPE, [id number] 16:53:48 Test Item Value Reference Range Interpretation Comments HPV HIGH RISK INTERP NEGATIVE NEGATIVE (test code = 79176) HPV 16 (test code = NEGATIVE 93228) HPV 18 (test code = NEGATIVE 29340) HPV, HR, OTHER NEGATIVE Testing meth odology is GENOTYPES (test code real-ti me PCR utilizing = 50389) hydrolysis prob es with the Chepe Arcenio 4800 system. The ciro t individually de tects genotypes 16 an d 18, as well as the oth er 12 high risk types (31,33,35,39,45 ,51,52,56 ,58,59,66,68). The expected result is negative. A neg ative result does not rule out the presence of HPV not included in the genotype set, a low leve l of infection or sp ecimen sampling error. UNLESS OTHERWISE INDIC ATED, ALL TESTING PERFORM ED ATCLINICAL PATH OLY LABORATORIES, [place]. [address] [place] [address], [place] [address] LABORATORY DIRE CTOR: APARNA SAHA M.D. CLIA NUMBER [id number] [facility] [place]. [id number] VARICELLA ZOSTER [id number] 15:59:06 Test Item Value Reference Range Interpretation Comments VARICELLA ZOSTER IgG 854 INDEX SEE BELOW INTERP RETATION VZV IgG (test code = 74613) NEGATIVE . . . . . . . . . . . . INDEX < 135 EQUIVOCAL. . . . . . . . . . . . INDEX 1 35-164 NOTE: CONSIDER RETESTING IN A CLINICALLY SUITABLE PERIOD OF TIME, NO SOONER THAN 1-2 WEEKS. POSITIVE . . . . . . . . . . . . INDEX > =165 VAGINAL PATHOGENS DNA [id number] 15:20:17 Test Item Value Reference Range Interpretation Comments ANNETTE SPECIES (test code = ) NEGATIVE NEGATIVE G. VAGINALIS (test code = ) NEGATIVE NEGATIVE T. VAGINALIS (test code = ) NEGATIVE NEGATIVE DRUG ABUSE SCREEN 10 REFLEX [id number] 07:43:16 Test Item Value Reference Interpretation Comments Range AMPHETAMINES (test NEGATIVE NEGATIVE code = 3201) BARBITURATES (test NEGATIVE NEGATIVE code = 3202) BENZODIAZEPINES NEGATIVE NEGATIVE (test code = 3203) CANNABINOIDS (test SEE REFLEX NEGATIVE A code = 3204) TESTING COCAINE METABOLITE NEGATIVE NEGATIVE (test code = 3205) OPIATES (test code = NEGATIVE NEGATIVE 3209) OXYCODONE (test code NEGATIVE NEGATIVE = 42369) PHENCYCLIDINE (test NEGATIVE NEGATIVE code = 3210) METHADONE (test code NEGATIVE NEGATIVE = 3207) BUPRENORPHINE (test NEGATIVE NEGATIVE code = 92091) SOURCE (test code = URINE SEE BELOW FOR 312441) THRESHOLDS AND IMPORTANT METHOD NOTES * ANALYTE SCREENING CUTOF F CONFIRMATORY CUTOFF ___AMPHETAMINES 500 NG/ML 100 NG/MLBARBITURAT ES 200 NG/ML 100 NG/MLBENZODIAZE PINES 200 NG/ML 100 NG/MLCANNABINOI DS (THC) 20 NG/ML 15 NG/ MLCOCAINE METABOLITES 150 NG/ML 100 NG/MLOPIATE METABOLITES 300 NG/ML 100 NG/MLOXYCOD ONE 100 NG/ML 100 NG/MLPHENCYCLID INE (PCP) 25 NG/ML 25 NG/MLMETHADONE 300 NG/ML 100 NG/MLBUPREN ORPHINE 5 NG/ML 5 NG/ML NOTE: Screening metho dology is qualitative Enz yme Immunoassay.The screening metho d may be less sensitive for certain medicationsincl uding clonazepam and lorazepam in the benzodia zepine assay andtramad ol or fentanyl in the opiate assay, amongst others. Patientcomplian ce, hydration statu s, timing and dose of med ications, drugabsorption and specimen qualit y may affect screenin g assay.For clini maritza discrepancies, consider directed testin g for specificcompoun ds or contact the lab oratory within specimen stability tofor javed for confirmatory te sting. This test is sp ecified for medicalpurp oses only. It is not valid for forensic us e. [id number] 04:43:19 Test Item Value Reference Range Interpretation Comments RPR RESULT (test code = NON-REACTIVE NON-REACTIVE 3501) RPR TITER (test code = 3500) NOT INDIC. TITER NOT INDIC. OBSTETRIC PANEL + [id number] 04:23:34 Test Item Value Reference Range Interpretation Comments WBC (test code = 12.3 K/UL 3.5-11.0 H 1001) RBC (test code = 3.84 M/UL 3.80-5.40 1002) HEMOGLOBIN (test 12.2 G/DL 11.5-15.5 code = 1003) HEMATOCRIT (test 35.8 % 34.0-45.0 code = 1004) MCV (test code = 93.2 fL 80.0-99.0 1005) MCH (test code = 31.8 PG 25.0-33.0 1006) MCHC (test code = 34.1 G/DL 31.0-36.0 1007) RDW (test code = 12.4 % 11.5-15.0 1038) NEUTROPHILS (test 73.3 % code = 1008) LYMPHOCYTES (test 19.8 % code = 1010) MONOCYTES (test 4.8 % code = 1011) EOSINOPHILS (test 1.3 % code = 1012) BASOPHILS (test 0.3 % code = 1013) IMMATURE 0.5 % GRANULOCYTES (test code = 1036) NUCLEATED RBCS 0.0 /100 WBC'S See_Comment [Automated message] (test code = 1065) The syste m which generated this result transmit sienna reference range : 0.0. The refere nce range was not u sed to interpret th is result as normal/abnormal . PLATELET COUNT 325 K/UL 130-400 (test code = 1015) ABSOLUTE 9.02 K/UL 1.50-7.50 H NEUTROPHILS (test code = 1066) ABSOLUTE 2.43 K/UL 1.00-4.00 LYMPHOCYTES (test code = 1067) ABSOLUTE MONOCYTES 0.59 K/UL 0.20-1.00 (test code = 1068) ABSOLUTE 0.16 K/UL 0.00-0.50 EOSINOPHILS (test code = 1040) ABSOLUTE BASOPHILS 0.04 K/UL 0.00-0.20 (test code = 1069) ABS IMMATURE 0.06 K/UL 0.00-0.10 GRANULOCYTES (test code = 1020) ABS NUCLEATED RBCS 0.00 K/UL 0.00-0.11 (test code = 13734) BLOOD TYPE AND RH O POSITIVE A HISTORI MARITZA RECORD (test code = 3901) CHECK FOR PREVIOUS RESULTS IS NOT PERFORMED.THESE RESULTS SHOULD BE CORRELATED WITH RESULTS OF PRIO R BLOODTYPING AND ANTIBODY SCREEN STUDIES. ANTIBODY SCREEN NEGATIVE NEGATIVE A HISTORICA L RECORD (test code = 3902) CHECK FOR PREVIOUS RESULTS IS NOT PERFORMED.THESE RESULTS SHOULD BE CORRELATED WITH RESULTS OF PRIO R BLOODTYPING AND ANTIBODY SCREEN STUDIES. RUBELLA ANTIBODY 82 IU/ML SEE BELOW INTERPRETA TION SCREEN (test code = RUBELLA IgG 4600) NON-REACTIVE/NO N-IMM UNE . . . . . . . IU/ML <10 REACTIVE/IMMUNE . . . . . . . . . . . IU/ML >=10 RUBELLA IgG INTERP REACTIVE REACTIVE (test code = 63981) HEPATITIS B SURF AG NON-REACTIVE NON-REACTIVE (test code = 2739) RPR (test code = NON-REACTIVE NON-REACTIVE 84370) RPR TITER (test NOT INDIC. NOT INDIC. code = 3500) TITER HIV 1/2 4TH GEN, NON-REACTIVE NON-REACTIVE RFLX CONF (test code = 3514) HEPATITIS C REFLEX [id number] 04:23:34 Test Item Value Reference Range Interpretation Comments HEPATITIS C ANTIBODY (test code NON-REACTIVE NON-REACTIVE = 4675)
[2022-02-06] MEDS ORDERED: FLUORESCEIN SODIUM 1 MG/WRAP ONE (18:18)
[2022-02-06] MEDS ORDERED: TETRACAINE HCL 0.5% 4ML OPTH ONE (18:18)
[2022-02-06] MEDS ORDERED: NA CHLORIDE 0.9% 1,000 ML ONE (18:34)
--- NOTE | 2022-02-06 19:05 | EDPHYS ---
Physician Documentation [facility] Name: Faby Bucio Age: 31 yrs Sex: Female : 1990 Arrival Date: 02/06/2022 Time: 17:55 Bed Treatment Private MD: ED Physician Kennedy Chavez HPI: 02/06 19:07 This 31 yrs old Female presents to ER via Ambulatory with complaints of Eye ms3 lash glue in eye. 19:07 The patient is experiencing eyelash glue in right eye, to the right eye, caused by ms3 eyelash glue. Onset: The symptoms/episode began/occurred 45 minute(s) ago. Duration: the symptoms are continuous. Aggravated by nothing. Alleviated by nothing. Associated signs and symptoms: Pertinent positives: None. Pertinent negatives: None. Patient wears soft contacts. Severity of symptoms: At their worst the symptoms were severe in the emergency department the symptoms are unchanged Pain is currently a 10 / 10. 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 - Social history:: Smoking status: Patient denies any tobacco usage or history of. ROS: 19:07 Constitutional: Negative for fever, and chills. ms3 19:07 Eyes: Positive for blurry vision, foreign body sensation, pain. 19:07 All other systems are negative. Exam: 19:07 Visual Acuity: Bilateral 20/25; Right 20/50; Left 20/50. ms3 19:07 Constitutional: This is a well developed, well nourished patient who is awake, alert, and in no acute distress. Head/Face: Normocephalic, atraumatic. Neck: Trachea midline, no cervical lymphadenopathy. Supple, full range of motion without nuchal rigidity, or vertebral point tenderness. No Meningismus. Chest/axilla: Normal chest wall appearance and motion. Nontender with no deformity. Cardiovascular: Regular rate and rhythm with a normal S1 and S2. No gallops, murmurs, or rubs. Normal PMI, no JVD. No pulse deficits. Respiratory: Lungs have equal breath sounds bilaterally, clear to auscultation and percussion. No rales, rhonchi or wheezes noted. No increased work of breathing, no retractions or nasal flaring. Abdomen/GI: Soft, non-tender, with normal bowel sounds. No distension or tympany. No guarding or rebound. No evidence of tenderness throughout. 19:07 Skin: Warm, dry with normal turgor. Normal color with no rashes, no lesions, and no evidence of cellulitis. 19:07 Eyes: Corneas: abrasion, that is small, on the right. Vital Signs: 18:36 BP 135 / 78; Pulse 80; Resp 15; Temp 97.9; Pulse Ox 100% on R/A; Weight 131.54 kg; jl7 Height 5 ft. 5 in. (165.10 cm); Pain 10/10; 18:36 Body Mass Index 48.26 (131.54 kg, 165.10 cm) jl7 MDM: 18:10 Patient medically screened. ms3 19:10 Data reviewed: vital signs, nurses notes, and as a result, I will discharge patient. ms3 Counseling: I had a detailed discussion with the patient and/or guardian regarding: the historical points, exam findings, and any diagnostic results supporting the discharge/admit diagnosis, the need for outpatient follow up, to return to the emergency department if symptoms worsen or persist or if there are any questions or concerns that arise at home. ED course: Discussed case with Raúl at [place] poison control and he recommended irrigation with Sathish lens. Patient's right eye was irrigated with 1 L normal saline. Patient was given prescription for erythromycin ointment. Patient to follow-up Dr. Mack in 2 to 3 days. Patient understands agrees with plan. All questions were answered. Return precautions discussed include worsening symptoms, or any other concerns. On reevaluation patient's symptoms are improved, patient is alert and orient x4, in no apparent distress, nontoxic-appearing. Administered Medications: 18:20 Drug: Fluorescein Strip 1 strip {Note: administered by Dr. Chavez.} Route: Ophthalmic; jl7 Site: right eye; 19:11 Follow up: Response: No adverse reaction ll3 18:20 Drug: Tetracaine Drops 0.5 % 1 drops {Note: administered by Dr. Chavez.} Route: jl7 Ophthalmic; Site: right eye; 19:12 Follow up: Response: No adverse reaction ll3 Disposition Summary: 02/06/22 19:05 Discharge Ordered Location: Home ms3 Condition: Stable ms3 Diagnosis - Cyanoacrylate glue to left cornea ms3 - Left corneal abrasion ms3 Followup: ms3 - With: Lux Mack MD - When: 1 - 2 days - Reason: Recheck today's complaints Discharge Instructions: - Discharge Summary Sheet ms3 - Corneal Abrasion ms3 - Quick-Bonding Glue Injury ms3 Forms: - Medication Reconciliation Form ms3 - Thank You Letter ms3 - Antibiotic Education ms3 - Prescription Opioid Use ms3 Prescriptions: - erythromycin 5 mg/gram (0.5 %) Ophthalmic ointment - apply 1 centimeter by OPHTHALMIC route 4 times per day; 3.5 gram; Refills: 0, ms3 Product Selection Permitted Signatures: Karen Coronel RN RN jl7 Kennedy Chavez DO DO ms3 Blu Lui RN ll3 Corrections: (The following items were deleted from the chart) 19:10 19:07 The patient is experiencing eyelash glue in left eye, to the left eye, caused by ms3 eyelash glue, ms3
--- NOTE | 2022-02-06 19:05 | ER ---
Nurse's Notes [facility] Name: Faby Bucio Age: 31 yrs Sex: Female : 1990 Arrival Date: 02/06/2022 Time: 17:55 Bed Treatment Private MD: Diagnosis: Cyanoacrylate glue to left cornea;Left corneal abrasion Presentation: 02/06 18:36 Chief complaint: Patient states: Trying to put eyelash on and got glue in right eye. jl7 Coronavirus screen: At this time, the client does not indicate any symptoms associated with coronavirus-19. Ebola Screen: No symptoms or risks identified at this time. Initial Sepsis Screen: Does the patient meet any 2 criteria? No. Patient's initial sepsis screen is negative. Does the patient have a suspected source of infection? No. Patient's initial sepsis screen is negative. Risk Assessment: Do you want to hurt yourself or someone else? Patient reports no desire to harm self or others. Onset of symptoms was February 06, 2022. 18:36 Method Of Arrival: Ambulatory [facility] 18:36 Acuity: PHIL 4 jl7 Triage Assessment: 18:15 General: Appears in no apparent distress. uncomfortable, Behavior is calm, cooperative, jl7 appropriate for age. Pain: Complains of pain in right eye Pain currently is 10 out of 10 on a pain scale. 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 - Social history:: Smoking status: Patient denies any tobacco usage or history of. Screenin:12 [facility] [place] ED Fall Risk Assessment (Adult) History of falling in the last 3 months, ll3 including since admission No falls in past 3 months (0 pts) Confusion or Disorientation No (0 pts) Intoxicated or Sedated No (0 pts) Impaired Gait No (0 pts) Mobility Assist Device Used No (0 pt) Altered Elimination No (0 pt) Score/Fall Risk Level 0 - 2 = Low Risk Oriented to surroundings, Maintained a safe environment. Humpty Dumpty Scale Fall Assessment Tool (age< 18yrs) Age 13 years and above (1 pt). Abuse screen: Denies threats or abuse. Denies injuries from another. Nutritional screening: No deficits noted. Tuberculosis screening: No symptoms or risk factors identified. Fall Risk No fall in past 12 months (0 pts). No secondary diagnosis (0 pts). No IV (0 pts). Ambulatory Aid- None/Bed Rest/Nurse Assist (0 pts). Gait- Normal/Bed Rest/Wheelchair (0 pts) Mental Status- Oriented to own ability (0 pts). Total Capps Fall Scale indicates No Risk (0-24 pts). Vital Signs: 18:36 BP 135 / 78; Pulse 80; Resp 15; Temp 97.9; Pulse Ox 100% on R/A; Weight 131.54 kg; jl7 Height 5 ft. 5 in. (165.10 cm); Pain 10/10; 18:36 Body Mass Index 48.26 (131.54 kg, 165.10 cm) jl7 ED Course: 17:55 Patient arrived in ED. mr 18:00 Kennedy Chavez DO is Attending Physician. ms3 18:15 Arm band placed on right wrist. jl7 18:37 Triage completed. jl7 19:04 Lux Mack MD is Referral Physician. ms3 19:12 No provider procedures requiring assistance completed. Patient did not have IV access ll3 during this emergency room visit. 19:13 Patient has correct armband on for positive identification. Bed in low position. Call ll3 light in reach. Side rails up X 1. Administered Medications: 18:20 Drug: Fluorescein Strip 1 strip {Note: administered by Dr. Chavez.} Route: Ophthalmic; jl7 Site: right eye; 19:11 Follow up: Response: No adverse reaction ll3 18:20 Drug: Tetracaine Drops 0.5 % 1 drops {Note: administered by Dr. Chavez.} Route: jl7 Ophthalmic; Site: right eye; 19:12 Follow up: Response: No adverse reaction ll3 Medication: 19:13 VIS not applicable for this client. ll3 Outcome: 19:05 Discharge ordered by . ms3 19:12 Discharged to home ambulatory, with friend. ll3 19:12 Condition: stable 19:12 Discharge instructions given to patient, friend, Instructed on discharge instructions, follow up and referral plans. medication usage, Demonstrated understanding of instructions, follow-up care, medications, Prescriptions given X 1. 19:13 Patient left the ED. ll3 Signatures: Ceci Warren Jahala RN RN jl7 Kennedy Chavez DO DO ms3 Blu Lui RN RN ll3
[2022-02-06 20:05] VITALS: BP 135/78; TEMP 97.9; O2SAT 100
== END 2022-02-06 19:13 | disposition home or self-care (01) ==
LOC: ER 17:51
DX: S05.01XA Injury of conjunctiva and corneal abrasion without foreign body, right eye, initial encounter (principal)
CPT/HCPCS: J7030